=== PATIENT | female | born 1960 | race Caucasian/White ===

== ENCOUNTER → 2016-08-25 | Outpatient (CLI) | payer MEDICARE, MEDICAID ==
[2016-08-25 13:19] LABS: MEAN CORPUSCULAR HEMOGLOBIN 31.5 pg (27.0-33.4); MEAN CORPUSCULAR HGB CONC 34.9 g/dL (32.0-36.0); MEAN CORPUSCULAR VOLUME 90 fl (80-97); RED BLOOD COUNT 4.43 10^6/uL (3.72-5.28); RED CELL DISTRIBUTION WIDTH 12.8 % (11.5-14.0); WHITE BLOOD COUNT 4.4 10^3/uL (4.0-10.5)
[2016-08-25 13:26] LABS: PROTHROMBIN TIME 12.8 SEC (11.4-15.4)
[2016-08-25 13:51] LABS: ALANINE AMINOTRANSFERASE 166 U/L (9-52); ALBUMIN 3.9 g/dL (3.5-5.0); ALKALINE PHOSPHATASE 108 U/L (38-126); ANION GAP 14 (5-19); ASPARTATE AMINO TRANSFERASE 181 U/L (14-36); BILIRUBIN,TOTAL 0.6 mg/dL (0.2-1.3); BLOOD UREA NITROGEN 15 mg/dL (7-20); CALCIUM 9.8 mg/dL (8.4-10.2); CARBON DIOXIDE 27 mmol/L (22-30); CHLORIDE 95 mmol/L (98-107); CREATININE RESULT 0.86 mg/dL (0.52-1.25); GLUCOSE 94 mg/dL (75-110); POTASSIUM 3.8 mmol/L (3.6-5.0); SODIUM 135.7 mmol/L (137-145); TOTAL PROTEIN 7.6 g/dL (6.3-8.2)
[2016-08-27 08:41] LABS: HEPATITIS C QUANTITATION 3660000 IU/mL (.)
[2016-08-28 13:37] LABS: HCV ALPHA 2-MACROGLOBULINS QNT 277 mg/dL (110-276); HCV FIBROSIS SCORE 0.57 (0.00-0.21); HCV FIBROSURE ALT P5P 152 IU/L (0-40); HCV FIBROSURE GGT 117 IU/L (0-60); HCV FIBROSURE HAPTOGLOBIN 63 mg/dL (34-200); HCVFIB APOLIPOPROTEIN A-1 147 mg/dL (116-209); NECROINFLAM ACTIVITY GRADE A3-Severe activity (.)
== END ==
LOC: LAB 12:43
PROVIDERS: ATTEND Physician Assistant Surgical
DX: B18.2 Chronic viral hepatitis C (principal)
CPT/HCPCS: 36415; 80053; 82172; 82247; 82977; 83010; 83883; 84460; 85027; 85610; 87522

== ENCOUNTER → 2016-08-26 | Outpatient (CLI) | payer MEDICARE, MEDICAID | LOC: WI 09:41 | PROVIDERS: ATTEND Internal Medicine Gastroenterology | DX: B18.2 Chronic viral hepatitis C (principal) | CPT/HCPCS: 76705 ==

== ENCOUNTER 2016-12-06 08:34 | Emergency (ER) | payer MEDICARE, MEDICAID ==
[2016-12-06 08:42] VITALS: BP 146/97
--- NOTE | 2016-12-06 09:16 | ER Document Report ---
ED Fall - General Chief Complaint: Fall Injury Stated Complaint: FELL/FACE PAIN Time Seen by Provider: 12/06/16 09:04 Mode of Arrival: Ambulatory Information source: Patient Notes: 56-year-old female presents to ED for fall on Tuesday she states she tripped over a rug. The point of face pain right knee pain foot pain small across her nose and right knee. TRAVEL OUTSIDE OF THE [place] IN LAST 30 DAYS: No - HPI Occurred: Other Where: Indoors Context: Tripped Associated symptoms: None Location of injury/pain: Face, Knee, Neck Quality of pain: Achy Severity: Moderate Pain Level: 4 - Related data Allergies/Adverse Reactions: No Known Allergies Allergy (Verified 12/06/16 08:35) Past Medical History - General Information source: Patient - Social History Smoking Status: Current Every Day Smoker Cigarette use (# per day): Yes - Pack a day Chew tobacco use (# tins/day): No Smoking Education Provided: Yes - Treatment Frequency of alcohol use: Social Drug Abuse: None Lives with: Alone Family History: Arthritis, CAD, Hyperlipidemia, Hypertension, Malignancy, Thyroid Disfunction Patient has suicidal ideation: No Patient has homicidal ideation: No - Past Medical History Cardiac Medical History: Reports: Hx Hypertension - meds x 15 years Pulmonary Medical History: Reports: Hx COPD EENT Medical History: Reports: None Neurological Medical History: Reports: None Endocrine Medical History: Reports: Hx Diabetes Mellitus Type 2 Renal/ Medical History: Reports: Hx Ovarian Cysts - denies surgery Malignancy Medical History: Reports: None GI Medical History: Reports: Hx Gastroesophageal Reflux Disease - meds x 8 years , Hx Hepatitis - Hepatitis C, Hx Liver Failure - Hep C, Dx'ed 2010, Hx Ulcer - gastic Musculoskeltal Medical History: Reports Hx Arthritis, Reports Hx Fibromyalgia, Reports Hx Musculoskeletal Deformity, Reports Hx Musculoskeletal Trauma Skin Medical History: Reports Hx MRSA Psychiatric Medical History: Reports: Hx Anxiety, Hx Depression - meds x 8 years , Hx Post Traumatic Stress Disorder - refused to explain Hx, "too painful" Traumatic Medical History: Reports: Hx Fractures - RT foot, ORIF, 2013, [place] Infectious Medical History: Reports: Hx Hepatitis - Hepatitis C Past Surgical History: Reports: Hx Abdominal Surgery - Partial colectomy for bowel obstruction, Hx Bowel Surgery - exp lap, colon resection 2011, MRSA, Hx Herniorrhaphy - ? ventral, Hx Orthopedic Surgery - Left TKR, Hx Umbilical Hernia - Immunizations Immunizations up to date: No Hx Diphtheria, Pertussis, Tetanus Vaccination: Yes Review of Systems - Review of Systems Constitutional: No symptoms reported EENT: Other - Pain in nose and face Cardiovascular: No symptoms reported Respiratory: No symptoms reported Gastrointestinal: No symptoms reported Genitourinary: No symptoms reported Female Genitourinary: No symptoms reported Musculoskeletal: Neck pain, Other - Knee and foot Skin: No symptoms reported Hematologic/Lymphatic: No symptoms reported Neurological/Psychological: No symptoms reported -: Yes All other systems reviewed and negative Physical Exam - Vital signs Vitals: Temp Pulse Resp BP Pulse Ox 97.5 F 94 20 146/97 H 97 12/06/16 08:40 12/06/16 08:40 12/06/16 08:40 12/06/16 08:40 12/06/16 08:40 Interpretation: Normal - General General appearance: Appears well, Alert - HEENT Head: Abrasions, Ecchymosis, Tenderness Eyes: Normal Pupils: No: PERRL - Artificial eye to the left Ears: Normal External canal: Normal Tympanic membrane: Normal Sinus: Normal Nasal: Normal Mouth/Lips: Normal Mucous membranes: Normal Pharynx: Normal Neck: Normal - Respiratory Respiratory status: No respiratory distress Chest status: Nontender Breath sounds: Normal Chest palpation: Normal - Cardiovascular Rhythm: Regular Heart sounds: Normal auscultation Murmur: No - Abdominal Inspection: Normal Distension: No distension Bowel sounds: Normal Tenderness: Nontender Organomegaly: No organomegaly - Back Back: Normal, Nontender - Extremities General upper extremity: Normal inspection, Normal color, Normal ROM, Normal temperature General lower extremity: Normal ROM, Normal temperature, Normal weight bearing. No: Suzanne's sign Shoulder: Tender Knee: Tender, Ecchymosis, Pain with ROM Foot: Tender - Neurological Neuro grossly intact: Yes Cognition: Normal Orientation: AAOx4 [place] Coma Scale Eye Opening: Spontaneous Josh Coma Scale Verbal: Oriented Josh Coma Scale Motor: Obeys Commands Josh Coma Scale Total: 15 Speech: Normal Motor strength normal: LUE, RUE, LLE, RLE Sensory: Normal - Psychological Associated symptoms: Normal affect, Normal mood - Skin Skin Temperature: Warm Skin Moisture: Dry Skin Color: Normal Course - Re-evaluation Re-evalutation: 12/06/16 10:20 Discussed x-ray with patient report given to patient follow-up with primary doctor and orthopedic - Vital Signs Vital signs: Temp Pulse Resp BP Pulse Ox 97.5 F 94 20 146/97 H 97 12/06/16 08:40 12/06/16 08:40 12/06/16 08:40 12/06/16 08:40 12/06/16 08:40 - Diagnostic Test Radiology reviewed: Image reviewed, Reports reviewed Discharge - Discharge Clinical Impression: Right foot pain, Myalgia Facial contusion Qualifiers: Encounter type: initial encounter Qualified Code(s): S00.83XA - Contusion of other part of head, initial encounter Facial abrasion Qualifiers: Encounter type: initial encounter Qualified Code(s): S00.81XA - Abrasion of other part of head, initial encounter Contusion of right knee Qualifiers: Encounter type: initial encounter Qualified Code(s): S80.01XA - Contusion of right knee, initial encounter Abrasion, right knee, initial encounter Qualifiers: Encounter type: initial encounter Qualified Code(s): S80.211A - Abrasion, right knee, initial encounter Fall Qualifiers: Encounter type: initial encounter Qualified Code(s): W19.XXXA - Unspecified fall, initial encounter Condition: Stable Disposition: HOME, SELF-CARE Additional Instructions: MUSCLE STRAIN: You have strained a muscle -- torn the fibers within the muscle. This often occurs with strenuous exertion, or during an injury that suddenly stretches the muscle. The seriousness of a strain varies. Some strains heal within days, others cause problems for months. X-rays cannot show a muscle strain. X-rays are taken only if symptoms suggest that a fracture could be present. The usual treatment of a muscle strain is rest and ice packs. Sometimes, a sling, splint, or crutches may be necessary to rest the muscle. The muscle can be used again once pain subsides. Severe strains require a special exercise and stretching program to prevent permanent stiffness and disability. Your doctor will advise you if this will be necessary. Call the doctor immediately if pain or swelling becomes severe, or if numbness or discoloration develop. CONTUSION: Your injury has resulted in a contusion -- a crushing of the deep tissues. No injury to important structures was detected during the physician's exam. Contusions vary in the amount of pain they cause, and in the length of time required for healing. Typically, the area will become bruised, and will remain painful to touch for two or three weeks. However, most patients are back to working and playing within a few days. After the initial period of rest and cold-packs, your symptoms (together with the doctor's recommendations) will determine how rapidly you can get back to full activity. Usually this means "do what feels okay, but don't do things that hurt." If re-examination was recommended, it's important to follow up as instructed. Call the doctor or return any time if pain increases, if swelling becomes severe, if you develop numbness or weakness in an injured extremity, or if any other alarming symptoms occur. ABRASIONS: An abrasion is a scraping injury of the skin. Some scarring may result. The seriousness of an abrasion is not always obvious at first. Hidden tissue damage may be present and infection may occur despite proper care. Complete healing may take from ten days to as long as a month. The healing time depends on the depth of the abrasion, and on the amount of crushing of underlying tissues from the injury. Keep the wound and dressing clean. Do not shower or bathe the area until okayed by the doctor. If the dressing gets wet, remove it and blot the wound dry, then reapply a clean dressing. Dressings should be changed every day. Sunscreen should be used for six months after the skin is healed. If any signs of infection occur (swelling, redness, increasing tenderness, red streaks, profuse purulent drainage from the abrasion, tender lumps in the armpit or groin above the abrasion, or fever), see the doctor immediately. USE OF TYLENOL (ACETAMINOPHEN): Acetaminophen may be taken for pain relief or fever control. It's much safer than aspirin, offering a wider range of "safe" dosages. It is safe during . Some brand names are Tylenol, Panadol, Datril, Anacin 3, Tempra, and Liquiprin. Acetaminophen can be repeated every four hours. The following are maximum recommended dosages: WEIGHT Dose Drops Elixir Chewable( 80mg) (LBS.) drprs=droppers tsp=teaspoon 6 40 mg 0.4 ml (1/2) 6-11 80 mg 0.8 ml (full) tsp 1 tab 12-16 120 mg 1 1/2 drprs 3/4 tsp 1 1/2 tabs 17-23 160 mg 2 drprs 1 tsp 2 tabs 24-30 240 mg 3 drprs 1 1/2 tsp 3 tabs 30-35 320 mg 2 tsp 4 tabs 36-41 360 mg 2 1/4 tsp 4 1/2 tabs 42-47 400 mg 2 1/2 tsp 5 tabs 48-53 480 mg 3 tsp 6 tabs 54-59 520 mg 3 1/4 tsp 6 1/2 tabs 60-64 560 mg 3 1/2 tsp 7 tabs 65-70 600 mg 3 3/4 tsp 7 1/2 tabs 71-76 640 mg 4 tsp 8 tabs 77-82 720 mg 4 1/2 tsp 9 tabs 83-88 800 mg 5 tsp 10 tabs >89 pounds or adults 650 mg to 900 mg Acetaminophen can be repeated every four hours. Maximum dose not to exceed 4000 mg a day. These maximum recommended dosages are slightly higher than the dosages written on the product container, but these dosages are very safe and below the toxic dosage for acetaminophen. ICE PACKS: Apply ice packs frequently against the painful area. Many different schedules are recommended, such as "20 minutes on, 20 minutes off" or "one hour ice, two hours rest." If you need to work, you may need to go longer between ice treatments. You should plan to have the area ice packed AT LEAST one fourth of the time. The ice should be applied over the wrap, tape, or splint, or over a layer of cloth -- not directly against the skin. Some ice bags have a built-in cloth and can be put directly on the skin. WARM PACKS: After approximately two days, apply gentle heat (such as a heating pad or hot water bottle) for about 20 to 30 minutes about every two hours -- at least four times daily. Warmth and elevation will help you make a more rapid recovery , and will ease the pain considerably. Do not use HOT heat, and never apply heat for longer than 30 minutes. The continuous heat can invisibly damage skin and muscles -- even when no burn is seen on the surface. Damaged muscles can make you MORE sore. MUSCLE RELAXERS: Muscle relaxing medications are usually prescribed for acute muscle spasm or injury to the neck and back. They are often combined with antiinflammatory pain medication for increased relief. You may stop the muscle relaxer when the pain and stiffness have improved. Start the medication again if spasms recur. Muscle relaxers may cause drowsiness, especially with the first dose. Do not operate machinery or drive while under the effects of the medication. Most muscle relaxers last up to 24 hours. Do not combine the medication with alcohol. FOLLOW-UP CARE: If you have been referred to a physician for follow-up care, call the physician s office for an appointment as you were instructed or within the next two days. If you experience worsening or a significant change in your symptoms, notify the physician immediately or return to the Emergency Department at any time for re-evaluation. Prescriptions: Ibuprofen 600 mg PO Q6HP PRN #20 tablet PRN Reason: Forms: Elevated Blood Pressure, Smoking Cessation Education Referrals: AKIL MEEK MD [Primary Care Provider] - Follow up as needed
--- NOTE | 2016-12-06 09:45 | RADIOLOGY REPORT (SQ) ---
EXAM DESCRIPTION: FACIAL BONES COMPLETED DATE/TIME: 12/06/2016 9:36 am REASON FOR STUDY: fall injury pain COMPARISON: None. NUMBER OF VIEWS: Three view. TECHNIQUE: Images of the facial bones acquired. LIMITATIONS: None. FINDINGS: ORBITS: No fracture. No foreign body. SINUSES: No mucosal thickening. No air fluid levels. FACIAL BONES: No fracture. OTHER: No other significant finding. IMPRESSION: NO FOREIGN BODY OR FRACTURE OF THE FACIAL BONES. TECHNICAL DOCUMENTATION: JOB ID: [id number] [employer]- All Rights Reserved
--- NOTE | 2016-12-06 09:46 | RADIOLOGY REPORT (SQ) ---
EXAM DESCRIPTION: KNEE RIGHT 4 VIEWS COMPLETED DATE/TIME: 12/06/2016 9:36 am REASON FOR STUDY: fall injury pain COMPARISON: 06/16/2015. NUMBER OF VIEWS: Four views. TECHNIQUE: AP, lateral, and both oblique radiographic images acquired of the right knee. LIMITATIONS: None. FINDINGS: MINERALIZATION: Normal. BONES: Stable knee prosthesis. No acute fracture or dislocation. No worrisome bone lesions. JOINT: No effusion. SOFT TISSUES: No soft tissue swelling. No radio-opaque foreign body. OTHER: No other significant finding. IMPRESSION: STABLE KNEE PROSTHESIS. NO RADIOGRAPHIC EVIDENCE OF ACUTE INJURY. TECHNICAL DOCUMENTATION: JOB ID: [id number] [employer]- All Rights Reserved
== END 2016-12-06 10:14 | disposition home or self-care (01) ==
LOC: ER 08:34
DX: S00.83XA Contusion of other part of head, initial encounter (principal); S80.01XA Contusion of right knee, initial encounter; W01.0XXA Fall on same level from slipping, tripping and stumbling without subsequent striking against object, initial encounter; R51 Headache; M25.561 Pain in right knee; M79.1 Myalgia; M54.2 Cervicalgia; I10 Essential (primary) hypertension; J44.9 Chronic obstructive pulmonary disease, unspecified; E11.9 Type 2 diabetes mellitus without complications; F17.210 Nicotine dependence, cigarettes, uncomplicated; Z71.6 Tobacco abuse counseling
CPT/HCPCS: 70150; 99283

== ENCOUNTER → 2016-12-30 | Outpatient (CLI) | payer MEDICARE, MEDICAID ==
[2016-12-30 11:27] LABS: HEMATOCRIT 39.7 % (36.0-47.0); HEMOGLOBIN 13.4 g/dL (12.0-15.5); HGB HCT DIFFERENCE 0.5; MEAN CORPUSCULAR HEMOGLOBIN 31.8 pg (27.0-33.4); MEAN CORPUSCULAR HGB CONC 33.8 g/dL (32.0-36.0); MEAN CORPUSCULAR VOLUME 94 fl (80-97); RED BLOOD COUNT 4.23 10^6/uL (3.72-5.28); RED CELL DISTRIBUTION WIDTH 13.6 % (11.5-14.0); WHITE BLOOD COUNT 4.6 10^3/uL (4.0-10.5)
[2016-12-30 11:51] LABS: ALANINE AMINOTRANSFERASE 113 U/L (9-52); ALBUMIN 4.3 g/dL (3.5-5.0); ALKALINE PHOSPHATASE 92 U/L (38-126); ASPARTATE AMINO TRANSFERASE 90 U/L (14-36); BILIRUBIN,DIRECT 0.4 mg/dL (0.0-0.4); BILIRUBIN,TOTAL 0.5 mg/dL (0.2-1.3); TOTAL PROTEIN 7.8 g/dL (6.3-8.2)
[2016-12-30 12:30] LABS: ADD HIVPANEL? NO; HIV (1 AND 2) ANTIBODY NEGATIVE (NEGATIVE)
[2016-12-31 21:07] LABS: HEPATITIS C QUANTITATION 7550000 IU/mL (.)
[2017-01-01 07:42] LABS: HCV ALPHA 2-MACROGLOBULINS QNT 299 mg/dL (110-276); HCV FIBROSIS SCORE 0.37 (0.00-0.21); HCV FIBROSIS STAGE F1-F2 (.); HCV FIBROSURE ALT P5P 112 IU/L (0-40); HCV FIBROSURE GGT 158 IU/L (0-60); HCV FIBROSURE HAPTOGLOBIN 75 mg/dL (34-200); HCVFIB APOLIPOPROTEIN A-1 176 mg/dL (116-209); NECROINFLAM ACTIVITY GRADE A3-Severe activity (.); NECROINFLAMM ACTIVITY SCORE 0.64 (0.00-0.17)
== END ==
LOC: OD 10:12
PROVIDERS: ATTEND Internal Medicine Gastroenterology
DX: B18.2 Chronic viral hepatitis C (principal)
CPT/HCPCS: 36415; 80076; 82172; 82247; 82977; 83010; 83883; 84460; 85027; 86038; 86235; 86256; 86701; 87522

== ENCOUNTER → 2017-01-06 | Outpatient (CLI) | payer MEDICARE, MEDICAID ==
[2017-01-07 13:39] LABS: JO-1 ANTIBODY (ANACOMP) <0.2 AI (0.0-0.9)
== END ==
LOC: OD 12:35
PROVIDERS: ATTEND Internal Medicine Gastroenterology
DX: B18.2 Chronic viral hepatitis C (principal); R94.5 Abnormal results of liver function studies
CPT/HCPCS: 36415; 86225; 86235

== ENCOUNTER → 2017-04-19 | Outpatient (CLI) | payer MEDICARE, MEDICAID ==
[2017-04-19 13:58] LABS: HEMATOCRIT 38.7 % (36.0-47.0); HEMOGLOBIN 13.9 g/dL (12.0-15.5); MEAN CORPUSCULAR HEMOGLOBIN 31.9 pg (27.0-33.4); MEAN CORPUSCULAR HGB CONC 35.8 g/dL (32.0-36.0); MEAN CORPUSCULAR VOLUME 89 fl (80-97); RED BLOOD COUNT 4.35 10^6/uL (3.72-5.28); RED CELL DISTRIBUTION WIDTH 12.4 % (11.5-14.0); WHITE BLOOD COUNT 5.9 10^3/uL (4.0-10.5)
[2017-04-19 14:28] LABS: ALANINE AMINOTRANSFERASE 75 U/L (9-52); ALBUMIN 4.8 g/dL (3.5-5.0); ALKALINE PHOSPHATASE 74 U/L (38-126); ANION GAP 15 (5-19); ASPARTATE AMINO TRANSFERASE 59 U/L (14-36); BILIRUBIN,DIRECT 0.5 mg/dL (0.0-0.4); BILIRUBIN,TOTAL 0.6 mg/dL (0.2-1.3); BLOOD UREA NITROGEN 9 mg/dL (7-20); CALCIUM 10.9 mg/dL (8.4-10.2); CARBON DIOXIDE 26 mmol/L (22-30); CHLORIDE 99 mmol/L (98-107); CREATININE RESULT 0.85 mg/dL (0.52-1.25); GLUCOSE 96 mg/dL (75-110); POTASSIUM 3.9 mmol/L (3.6-5.0); SODIUM 140.2 mmol/L (137-145); TOTAL PROTEIN 8.2 g/dL (6.3-8.2)
[2017-04-19 14:53] LABS: THYROID STIMULATING HORMONE 3.47 uIU/mL (0.47-4.68)
[2017-04-20 14:40] LABS: HEPATITIS C QUANTITATION HCV Not Detected IU/mL (.)
== END ==
LOC: OD 13:07
PROVIDERS: ATTEND Physician Assistant Surgical
DX: B18.2 Chronic viral hepatitis C (principal); R53.83 Other fatigue; R94.5 Abnormal results of liver function studies
CPT/HCPCS: 36415; 80053; 82306; 82607; 84439; 84443; 85027; 87522

== ENCOUNTER → 2017-06-15 | Outpatient (CLI) | payer MEDICARE, MEDICAID ==
--- NOTE | 2017-06-15 11:22 | RADIOLOGY REPORT (SQ) ---
EXAM DESCRIPTION: CT LUNG CANCER SCREENING COMPLETED DATE/TIME: 06/15/2017 10:12 am REASON FOR STUDY: F17.211 NICOTINE DEPENDENCE, CIGARETTES, IN REMISSION N95.9 UNSPECIFIED MENOPAUSA L AND PERIMENOPAUSAL DISORDER F17.211 NICOTINE DEPENDENCE, CIGARETTES, IN REMISSION Has the patient had a Chest CT scan within the past year? No. Was the patient offered tobacco cessation counseling? Yes. Was the patient engaged in shared decision making for this test? Yes. Does the patient have signs or symptoms of Lung Cancer? No. Is the patient a smoker? Yes. How many packs per year? 365. How many years since quitting smoking? Current smoker. Patients age: 57. COMPARISON: None. TECHNIQUE: Low Dose CT scan performed of the chest without intravenous contrast for purposes of scre ening for lung cancer. Images reviewed with lung, soft tissue and bone windows. Reconstructed coron al and sagittal MPR images reviewed. All images stored on PACS. All CT scanners at this facility use dose modulation, iterative reconstruction, and/or weight based d osing when appropriate to reduce radiation dose to as low as reasonably achievable (ALARA). [facility]: Dose Right [facility]: CareDose [facility]: Dose Right [facility]: Teradose 4D [facility]: [employer] RADIATION DOSE: CT Rad equipment meets quality standard of care and radiation dose reduction techniq ues were employed. CTDIvol: 2.1 mGy. DLP: 69 mGy-cm. mGy. . LIMITATIONS: None FINDINGS: LUNGS AND PLEURA: No masses or nodules. No pleural effusions or calcifications. No pne umothorax. No scarring or interstitial changes. HILAR AND MEDIASTINAL STRUCTURES: No identified masses. No abnormal nodes. HEART AND VASCULAR STRUCTURES: No aortic aneurysm. No pericardial effusion. No cardiac devices. CORONARY ARTERY CALCIFICATIONS: Mild to moderate calcifications. UPPER ABDOMEN, THYROID, BONES, OTHER SOFT TISSUES: No significant findings. IMPRESSION: NO SIGNIFICANT FINDING IN THE LUNGS ON NON-CONTRASTED CHEST CT. NO OTHER CLINICALLY SIGNIFICANT/POTENTIALLY CLINICALLY SIGNIFICANT FINDINGS LUNGRADS: LUNGRADS: 1 NEGATIVE. NO NODULES, OR DEFINITELY BENIGN NODULES MODIFIER: NONE RECOMMENDATION: Continue annual screening with LDCT in 12 months. COMMENT: CRITERIA: No lung nodules. Nodules with specific calcifications: Complete, central, popcorn, concentric rings and fat containin g nodules. TECHNICAL DOCUMENTATION: JOB ID: [id number] Quality ID # [id number]: Final reports with documentation of one or more dose reduction techniques (e.g., Au tomated exposure control, adjustment of the mA and/or kV according to patient size, use of iterative reconstruction technique) 2010 [facility] emergency department Radiology
--- NOTE | 2017-06-15 11:25 | WOMENS IMAGING REPORT ---
EXAM DESCRIPTION: BONE DENSITY HIP/SPINE COMPLETED DATE/TIME: 06/15/2017 9:55 am REASON FOR STUDY: MENOPAUSAL SYNDROME; N95.9 N95.9 UNSPECIFIED MENOPAUSAL AND PERIMENOPAUSAL DISORD ER F17.211 NICOTINE DEPENDENCE, CIGARETTES, IN REMISSION COMPARISON: None. TECHNIQUE: Dual-Energy X-ray Absorptiometry (DEXA) of the AP Spine and Hip. LIMITATIONS: None. FINDINGS: LUMBAR SPINE: The bone mineral density (BMD) measured from L1-L4 in the AP projection correlates with a T-score of -0.7, which is normal as defined by the World Health Organization. HIP: The bone mineral density (BMD) measured in the left hip correlates with a T-score of -0.8, which is n ormal as defined by the World Health Organization. IMPRESSION: 1. LUMBAR SPINE: NORMAL. 2. HIP: NORMAL. COMMENT: The World Health Organization defines low BMD as follows: T-score: Normal: Greater than -1.0 Osteopenia: Between -1.0 and -2.5 Osteoporosis: Less than -2.5 without fractures Established osteoporosis: Less than -2.5 with fractures In general, you may wish to consider: Diagnosis Treatment Follow-up DEXA Normal BMD Prevention 2-3 years Osteopenia Prevention/Therapy 1-2 years Osteoporosis Therapy Yearly TECHNICAL DOCUMENTATION: JOB ID: [id number]- All Rights Reserved
== END ==
LOC: WI 10:21
PROVIDERS: ATTEND Family Medicine
DX: F17.211 Nicotine dependence, cigarettes, in remission (principal); N95.9 Unspecified menopausal and perimenopausal disorder
CPT/HCPCS: 77080; G0297

== ENCOUNTER 2017-08-17 10:59 | Observation (INO) | payer MEDICARE, MEDICAID ==
--- NOTE | 2017-08-17 11:24 | RADIOLOGY REPORT (SQ) ---
EXAM DESCRIPTION: CT HEAD WITHOUT COMPLETED DATE/TIME: 08/17/2017 11:06 am REASON FOR STUDY: bed 2 stroke alert COMPARISON: 2014. TECHNIQUE: Axial images acquired through the brain without intravenous contrast. Images reviewed wi th bone, brain and subdural windows. Images stored on PACS. All CT scanners at this facility use dose modulation, iterative reconstruction, and/or weight based d osing when appropriate to reduce radiation dose to as low as reasonably achievable (ALARA). [facility]: Dose Right [facility]: CareDose [facility]: Dose Right [facility]: Teradose 4D [facility]: [employer] RADIATION DOSE: CT Rad equipment meets quality standard of care and radiation dose reduction techniq ues were employed. CTDIvol: 64.6 mGy. DLP: 1163 mGy-cm. mGy. LIMITATIONS: None. FINDINGS: VENTRICLES: Age-appropriate. CEREBRUM: No masses. No hemorrhage. No midline shift. No evidence for acute infarction. Normal gra y/white matter differentiation. No areas of low density in the white matter. CEREBELLUM: No masses. No hemorrhage. No alteration of density. No evidence for acute infarction. EXTRAAXIAL SPACES: No fluid collections. No masses. ORBITS AND GLOBE: Chronic postoperative left orbit changes. CALVARIUM: No fracture. PARANASAL SINUSES: Fluid in the dependent left maxillary sinus may reflect active infection. SOFT TISSUES: No mass or hematoma. OTHER: No other significant finding. IMPRESSION: 1. No acute intracranial abnormality. 2. Findings which may reflect acute left maxilla ry sinusitis. EVIDENCE OF ACUTE STROKE: NO. Pertinent positive or negative findings of the imaging study reported as a CRITICAL EXAM to FRANKLIN BARONE at11:18 on 08/17/2017. Category of Critical Exam: Stroke alert COMMENT: Quality ID # [id number]: Final reports with documentation of one or more dose reduction techniques (e.g., Automated exposure control, adjustment of the mA and/or kV according to patient size, use of iterative reconstruction technique) TECHNICAL DOCUMENTATION: JOB ID: [id number] [email or web address]- All Rights Reserved
--- NOTE | 2017-08-17 11:25 | RADIOLOGY REPORT (SQ) ---
EXAM DESCRIPTION: CHEST SINGLE VIEW COMPLETED DATE/TIME: 08/17/2017 11:12 am REASON FOR STUDY: bed 2 stroke alert COMPARISON: 2015. NUMBER OF VIEWS: One view. TECHNIQUE: Single frontal radiographic view of the chest acquired. LIMITATIONS: None. FINDINGS: LUNGS AND PLEURA: LOW VOLUMES WITH ASSOCIATED VASCULAR CROWDING AND BASILAR AREAS OF SUBSE GMENTAL ATELECTASIS. ALLOWING FOR THIS, NO SUSPICIOUS OR ACUTE OPACITIES DETECTED. NO PNEUMOTHORAX. MEDIASTINUM AND HILAR STRUCTURES: ACCENTUATED CARDIOMEDIASTINAL STRUCTURE DUE TO LOW LUNG VOLUMES, GE NERALLY STABLE. HEART AND VASCULAR STRUCTURES: STABLE HEART SIZE. NO OVERT FAILURE. BONES: No acute findings. HARDWARE: None in the chest. OTHER: No other significant finding. IMPRESSION: LOW LUNG VOLUMES WITHOUT ACUTE CARDIOPULMONARY DISEASE OTHERWISE SUGGESTED. TECHNICAL DOCUMENTATION: JOB ID: [id number] [employer]- All Rights Reserved
[2017-08-17 11:31] LABS: ABSOLUTE BASOPHILS # (AUTO) 0.1 10^3/uL (0.0-0.2); ABSOLUTE LYMPHOCYTES (AUTO) 1.9 10^3/uL (0.5-4.7); ABSOLUTE MONOCYTES (AUTO) 0.4 10^3/uL (0.1-1.4); ABSOLUTE NEUT (AUTO) 3.4 10^3/uL (1.7-8.2); BASOPHILS % (AUTO) 1.1 % (0-2); EOSINOPHILS % (AUTO) 0.5 % (0-6); HEMOGLOBIN 15.3 g/dL (12.0-15.5); LYMPHOCYTES % (AUTO) 32.8 % (13-45); MEAN CORPUSCULAR HEMOGLOBIN 30.9 pg (27.0-33.4); MEAN CORPUSCULAR HGB CONC 34.8 g/dL (32.0-36.0); MEAN CORPUSCULAR VOLUME 89 fl (80-97); MONOCYTES % (AUTO) 7.3 % (3-13); PLATELET COUNT 216 10^3/uL (150-450); RED BLOOD COUNT 4.95 10^6/uL (3.72-5.28); RED CELL DISTRIBUTION WIDTH 13.5 % (11.5-14.0); SEGMENTED NEUTROPHILS % (AUTO) 58.3 % (42-78); TOTAL CELLS COUNTED % (AUTO) 100 %; WHITE BLOOD COUNT 5.8 10^3/uL (4.0-10.5)
[2017-08-17 11:38] LABS: INTERNATIONAL RATION (INR) 0.96; PARTIAL THROMBOPLASTIN TIME 27.3 SEC (23.5-35.8); PROTHROMBIN TIME 13.5 SEC (11.4-15.4)
[2017-08-17 11:49] LABS: ALANINE AMINOTRANSFERASE 25 U/L (9-52); ALBUMIN 5.5 g/dL (3.5-5.0); ALKALINE PHOSPHATASE 63 U/L (38-126); ANION GAP 14 (5-19); ASPARTATE AMINO TRANSFERASE 36 U/L (14-36); BILIRUBIN,DIRECT 0.5 mg/dL (0.0-0.4); BILIRUBIN,TOTAL 0.5 mg/dL (0.2-1.3); BLOOD UREA NITROGEN 11 mg/dL (7-20); CALCIUM 11.5 mg/dL (8.4-10.2); CARBON DIOXIDE 27 mmol/L (22-30); CHLORIDE 104 mmol/L (98-107); CREATINE KINASE 30 U/L (30-135); GLUCOSE 124 mg/dL (75-110); POTASSIUM 3.5 mmol/L (3.6-5.0); SODIUM 144.9 mmol/L (137-145); TOTAL PROTEIN 9.7 g/dL (6.3-8.2)
[2017-08-17 12:00] LABS: CREATINE KINASE MB 0.22 ng/mL (<4.55); TROPONIN I < 0.012 ng/mL
--- NOTE | 2017-08-17 13:23 | EKG REPORT ---
SEVERITY:- ABNORMAL ECG - SINUS RHYTHM LEFT ATRIAL ABNORMALITY : Confirmed by: Ryan Balderas MD 17-Aug-2017 13:22:41
[2017-08-17] MEDS ORDERED: ASPIRIN 81 MG TABLET, CHEWABLE PO ONE (13:50)
--- NOTE | 2017-08-17 13:57 | ER Document Report ---
ED Neuro Symptoms/Deficit - General Chief Complaint: S/S of Possible Stroke Stated Complaint: POSSIBLE STROKE Time Seen by Provider: 08/17/17 11:24 Notes: Patient says that she was at [facility] this morning, about an hour ago , getting preop is done for anticipated surgery on her right foot in a couple of weeks. While there, she suddenly developed slurring of her speech and dizziness and a right-sided headache. She gets occasional headaches, but not like the current one. She did not lose consciousness or fall to the floor. She was able to continue to bear weight on both extremities. Think she may have had some weakness in her right arm. She has a history of high blood pressure and did not take her blood pressure medicines before leaving her house this morning to go to get these tests done. She says at this time, her symptoms have almost resolved with exception of her feeling as if she still slurring her speech. Says she has not eaten or been drinking very well for the past couple of days. Denies any chest pains or shortness of breath or difficulty breathing. Does have a history of COPD and does smoke cigarettes. TRAVEL OUTSIDE OF THE [place] IN LAST 30 DAYS: No - Related Data Allergies/Adverse Reactions: No Known Allergies Allergy (Verified 12/06/16 08:35) Past Medical History - Social History Smoking Status: Current Every Day Smoker Frequency of alcohol use: None Drug Abuse: None Family History: Reviewed & Not Pertinent, Arthritis, CAD, Hyperlipidemia, Hypertension, Malignancy, Thyroid Disfunction Patient has suicidal ideation: No Patient has homicidal ideation: No - Past Medical History Cardiac Medical History: Reports: Hx Hypercholesterolemia, Hx Hypertension - meds x 15 years Pulmonary Medical History: Reports: Hx COPD Neurological Medical History: Denies: Hx Cerebrovascular Accident Endocrine Medical History: Reports: Hx Diabetes Mellitus Type 2 Renal/ Medical History: Reports: Hx Ovarian Cysts - denies surgery GI Medical History: Reports: Hx Gastroesophageal Reflux Disease - meds x 8 years , Hx Hepatitis - Hepatitis C, Hx Liver Failure - Hep C, Dx'ed 2010, Hx Ulcer - gastic Musculoskeltal Medical History: Reports Hx Arthritis, Reports Hx Fibromyalgia, Reports Hx Musculoskeletal Deformity, Reports Hx Musculoskeletal Trauma Skin Medical History: Reports Hx MRSA Psychiatric Medical History: Reports: Hx Anxiety, Hx Depression - meds x 8 years , Hx Post Traumatic Stress Disorder - refused to explain Hx, "too painful" Traumatic Medical History: Reports: Hx Fractures - RT foot, ORIF, 2014, [facility] Infectious Medical History: Reports: Hx Hepatitis - Hepatitis C Past Surgical History: Reports: Hx Abdominal Surgery - Partial colectomy for bowel obstruction, Hx Bowel Surgery - exp lap, colon resection 2011, MRSA, Hx Herniorrhaphy - ? ventral, Hx Orthopedic Surgery - Left TKR, Hx Umbilical Hernia - Immunizations Immunizations up to date: No Hx Diphtheria, Pertussis, Tetanus Vaccination: Yes Review of Systems - Review of Systems Notes: REVIEW OF SYSTEMS: CONSTITUTIONAL : Denies fever. EENT: Denies ear, nose or mouth or throat pain or other symptoms. 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 Has glaucoma CARDIOVASCULAR: Denies chest pain. RESPIRATORY: Denies cough, chest congestion, or shortness of breath. GASTROINTESTINAL: Denies abdominal pain or nausea, vomiting, or diarrhea. GENITOURINARY: Denies difficulty or painful urinating, urinary frequency, blood in urine. MUSCULOSKELETAL: Denies back or neck pain. Denies joint pain or swelling. SKIN: Denies rash or skin lesions. NEUROLOGICAL: Denies LOC or altered mental status. See HPI. Denies sensory loss or motor deficits. ALL OTHER SYSTEMS REVIEWED AND NEGATIVE. Physical Exam - Vital signs Vitals: Temp Resp BP Pulse Ox 98.9 F 14 156/116 H 96 08/17/17 11:14 08/17/17 11:14 08/17/17 11:14 08/17/17 11:14 Interpretation: Hypertensive - Notes Notes: PHYSICAL EXAMINATION: GENERAL: Well-appearing, in no acute distress. Blood pressure up modestly. HEAD: Atraumatic, normocephalic. Dizziness is improved. EYES: Right eye pupil reacts to light and the right eye moves appropriately. Prosthetic left eye. As is her speech seems slurred to her, but says it is improving. NECK: Normal range of motion, supple. No bruits heard. LUNGS: Breath sounds clear and equal bilaterally. Occasional scattered wheeze heard. HEART: Regular rate and rhythm without murmurs. ABDOMEN: Soft, nontender. No guarding or rebound. No masses. BACK: No tenderness throughout entire back. EXTREMITIES: Normal range of motion without pain. NEUROLOGICAL: Patient says her speech is slurred, although it does not sound very slurred to me at this time, normal gait. Normal sensory, motor, and reflex exams. Awake, alert, and oriented x3. Cranial nerves normal. PSYCH: Normal mood, normal affect. SKIN: Warm, dry, no rashes. Course - Re-evaluation Re-evalutation: 08/17/17 19:10 Before she was taken upstairs, patient was found in the bathroom smoking a cigarette. - Vital Signs Vital signs: Temp Pulse Resp BP Pulse Ox 98.9 F 92 19 160/101 H 93 08/17/17 11:14 08/17/17 11:15 08/17/17 13:01 08/17/17 13:01 08/17/17 13:01 - Laboratory Result Diagrams: 08/17/17 11:20 08/17/17 11:20 Laboratory results interpreted by me: 08/17/17 11:20 Potassium 3.5 L Glucose 124 H Calcium 11.5 H Direct Bilirubin 0.5 H Total Protein 9.7 H Albumin 5.5 H - Diagnostic Test Radiology reviewed: Image reviewed, Reports reviewed - CT scan does not show any evidence of stroke. Radiology results interpreted by me: Chest x-ray shows poor inspiration, but no acute abnormality. - EKG Interpretation by Me EKG shows normal: Sinus rhythm Rate: Normal Rhythm: NSR Critical Care Note - Critical Care Note Total time excluding time spent on procedures (mins): 40 Discharge - Discharge Clinical Impression: TIA (transient ischemic attack) Qualifiers: Transient cerebral ischemia type: unspecified Qualified Code(s): G45.9 - Transient cerebral ischemic attack, unspecified Hypertension Qualifiers: Hypertension type: essential hypertension Qualified Code(s): I10 - Essential ( primary) hypertension Condition: Stable Disposition: ADMITTED OBSERVATION Admitting Provider: Hospitalist Unit Admitted: Telemetry
[2017-08-17] MEDS ORDERED: ASPIRIN 300 MG SUPP, RECTAL PR ONE (14:42)
[2017-08-17] MEDS ORDERED: GLUCAGON,HUMAN RECOMB 1 MG INJ SUBCUT PRN (16:19)
[2017-08-17] MEDS ORDERED: DEXTROSE 50%-WATER 25 GM/50 ML DISP.SYRIN IV PRN ×2 (16:19)
[2017-08-17] MEDS ORDERED: 1/2 NORMAL SALINE 1,000 ML IV PRN (16:19)
[2017-08-17] MEDS ORDERED: DEXTROSE 40% GEL 15 GM TUBE PO PRN ×2 (16:19)
--- NOTE | 2017-08-17 17:29 | PDOC H&P ---
History of Present Illness Admission Date/PCP: 08/17/17 14:39 Patient complains of: Slurred speech History of Present Illness: VENECIA GARNICA is a 57 year old female who presents to the emergency room with complaints of slurred speech as well as headache while she was at the outpatient center for some laboratory studies for a pending outpatient procedure. She was brought to the emergency room where she was found to be hypertensive with a systolic blood pressure of about 170/110. It appears that patient's symptoms waxed and waned and in fact the ER doctor said when he saw her discussed speech was basically gone. On my exam of the patient she initially had some slurred speech but when I went back in a few minutes later everything seemed to be pretty clear. There is no weakness and essentially no other focal or lateralizing symptoms although does she did complain of headaches. There is no fever nausea vomiting chest pain dizziness or any other pertinent symptoms It is noted that patient is on a bunch of antipsychotics. She apparently also has some difficulty swallowing although this also seem to be intermittent. She gives prior history of a mini stroke but because of speech she is unable to expand further Past Medical History Cardiac Medical History: Reports: Hyperlipidema, Hypertension - meds x 15 years Pulmonary Medical History: Reports: Chronic Obstructive Pulmonary Disease (COPD) Endocrine Medical History: Reports: Diabetes Mellitus Type 2 GI Medical History: Reports: Gastroesophageal Reflux Disease - meds x 8 years, Hepatitis - Hepatitis C Musculoskeltal Medical History: Reports: Arthritis, Fibromyalgia Psychiatric Medical History: Reports: Depression - meds x 8 years, Post Traumatic Stress Disorder - refused to explain Hx, "too painful" Hematology: Reports: Anemia - with pregnancies only Denies: Hemophilia, Sickle Cell Disease Past Surgical History Past Surgical History: Reports: Herniorrhaphy - ? ventral, Orthopedic Surgery - Left TKR Denies: Amputation Social History Smoking Status: Current Every Day Smoker Frequency of Alcohol Use: Occasional Hx Recreational Drug Use: No Hx Prescription Drug Abuse: No Family History Family History: Reviewed & Not Pertinent, Arthritis, CAD, Hyperlipidemia, Hypertension, Malignancy, Thyroid Disfunction Parental Family History Reviewed: Yes - Denies Children Family History Reviewed: Yes Sibling(s) Family History Reviewed.: Yes Medication/Allergy Home Medications: Albuterol Sulfate [Proair HFA Inhalation Aerosol 8.5 gm MDI] 2 puff IH Q4 Alprazolam [Xanax] 1 mg PO Q12HP PRN 08/17/17 Aripiprazole [Abilify 10 mg Tablet] 10 mg PO DAILY 08/17/17 Buspirone HCl [Buspar 15 mg Tablet] 7.5 mg PO BID 08/17/17 Citalopram Hydrobromide [Celexa 20 mg Tablet] 30 mg PO DAILY 08/17/17 Dextroamphetamine/Amphetamine [Dextroamp-Amphetamin 10 mg Tab] 10 mg PO BID Ergocalciferol (Vitamin D2) [Drisdol 50,000 unit (1.25MG) Capsule] 50,000 unit PO MO@1000 08/17/17 Gabapentin [Neurontin 300 mg Capsule] 300 mg PO Q8 08/17/17 Lisinopril [Prinivil 10 mg Tablet] 10 mg PO DAILY 08/17/17 Metformin HCl [Glucophage] 1,000 mg PO BID 08/17/17 Omeprazole 20 mg PO BID 08/17/17 Quetiapine Fumarate [Seroquel] 100 mg PO DAILY 08/17/17 Umeclidinium Brm/Vilanterol Tr [Anoro Ellipta 62.5-25 Mcg INH] 1 puff IH DAILY 08/17/17 Allergies/Adverse Reactions: No Known Allergies Allergy (Verified 12/06/16 08:35) Physical Exam Vital Signs: Temp Pulse Resp BP Pulse Ox 98.4 F 79 21 H 184/106 H 93 08/17/17 16:56 08/17/17 16:56 08/17/17 16:56 08/17/17 16:56 08/17/17 16:56 Intake & Output 08/16/17 08/17/17 08/18/17 06:59 06:59 06:59 Weight 71.6 kg General appearance: PRESENT: no acute distress, well-developed, well-nourished Head exam: PRESENT: atraumatic, normocephalic Eye exam: PRESENT: conjunctiva pink, EOMI, PERRLA. ABSENT: nystagmus, scleral icterus Ear exam: PRESENT: normal external ear exam Mouth exam: PRESENT: moist, tongue midline Neck exam: ABSENT: carotid bruit, JVD, lymphadenopathy, thyromegaly Respiratory exam: PRESENT: clear to auscultation abiola. ABSENT: rales, rhonchi, wheezes Cardiovascular exam: PRESENT: RRR. ABSENT: diastolic murmur, rubs, systolic murmur Pulses: PRESENT: normal dorsalis pedis pul Vascular exam: PRESENT: normal capillary refill GI/Abdominal exam: PRESENT: normal bowel sounds, soft. ABSENT: distended, guarding, mass, organolmegaly, rebound, tenderness Rectal exam: PRESENT: deferred Extremities exam: PRESENT: full ROM. ABSENT: calf tenderness, clubbing, pedal edema Neurological exam: PRESENT: alert, awake, oriented to person, oriented to place , oriented to time, oriented to situation, CN II-XII grossly intact - Slurred speech tongue is midline, strength appears to be equal in both extremities.. ABSENT: reflexes normal, abnormal gait, motor sensory deficit Psychiatric exam: PRESENT: appropriate affect, normal mood. ABSENT: homicidal ideation, suicidal ideation Skin exam: PRESENT: dry, intact, warm. ABSENT: cyanosis, rash Results Impressions: Chest X-Ray 08/17/17 11:00 IMPRESSION: LOW LUNG VOLUMES WITHOUT ACUTE CARDIOPULMONARY DISEASE OTHERWISE SUGGESTED. Head CT 08/17/17 11:00 IMPRESSION: 1. No acute intracranial abnormality. 2. Findings which may reflect acute left maxillary sinusitis. EVIDENCE OF ACUTE STROKE: NO. Pertinent positive or negative findings of the imaging study reported as a CRITICAL EXAM to ER PROVIDER KARLEY at11:18 on 08/17/2017. Category of Critical Exam: Stroke alert Assessment & Plan - Diagnosis (1) TIA (transient ischemic attack) Qualifiers: Transient cerebral ischemia type: unspecified Qualified Code(s): G45.9 - Transient cerebral ischemic attack, unspecified Is this a current diagnosis for this admission?: Yes Plan: Will monitor in ICU, obtain MRI as well as echo and carotid Doppler studies. She has been treated with aspirin in the ED and also continue with this. There appears to be an element of psychological or psychiatric component to this patient's symptoms however I think it is reasonable to monitor her and ensure that no specific pathology is present (2) HTN (hypertension) Qualifiers: Hypertension type: essential hypertension Qualified Code(s): I10 - Essential (primary) hypertension Is this a current diagnosis for this admission?: Yes Plan: Patient has hypertensive urgency possibly malignant if she truly has a cerebrovascular accident. She did not use her lisinopril this morning however that would not account for her poorly controlled blood pressure. She will be placed on as needed parenteral antihypertensive and I will continue her home lisinopril. (3) Hypercalcemia Is this a current diagnosis for this admission?: Yes Plan: Unclear if this is just secondary to dehydration but I will hydrate and recheck BMP in a.m. (4) Tobacco abuse disorder Is this a current diagnosis for this admission?: Yes Plan: Smoking cessation encouraged - Time Time Spent: 30 to 50 Minutes Smoking Cessation Education: 3 to 10 minutes Medications reviewed and adjusted accordingly: Yes Anticipated discharge: Home Within: within 24 hours - Inpatient Certification Medical Necessity: Need Close Monitoring Due to Risk of Patient Decompensation - She needs further imaging studies as well as monitoring to rule out progression of stroke
[2017-08-17] MEDS ORDERED: HYDRALAZINE HCL INJ/PF 20 MG/1 ML SDV IV PRN (17:31)
[2017-08-17] MEDS ORDERED: (PENDING PHARMACY ID) (Buspirone Hcl [Buspar 15 Mg Tablet] 7.5 MG) PO SCH (18:00)
[2017-08-17] MEDS ORDERED: LISINOPRIL 10 MG TABLET PO ONE (19:55)
[2017-08-17] MEDS ORDERED: ENOXAPARIN SODIUM INJ 40 MG/0.4 ML DISP.SYRIN SUBCUT ONE (21:00)
[2017-08-17] MEDS: GABAPENTIN 300 MG CAPSULE PO SCH (21:23)
[2017-08-17] MEDS: KETOROLAC TROMETHAMINE INJ/PF 30 MG/1 ML SDV IV PRN (21:24)
[2017-08-17] MEDS: FAMOTIDINE INJ/PF 20 MG/2 ML SDV IV SCH (21:24)
[2017-08-17] MEDS: BUSPIRONE HCL 10 MG TABLET PO SCH (21:25)
[2017-08-17] MEDS: ALBUTEROL SULFATE HFA (90 MCG/PUFF) 200 PUFF/8.5 GM MDI IH SCH ×2 (21:25→21:36)
[2017-08-17] MEDS ORDERED: ATORVASTATIN CALCIUM 20 MG TABLET PO SCH (22:00)
[2017-08-17] MEDS ORDERED: QUETIAPINE FUMARATE 100 MG TABLET PO ONE (22:00)
[2017-08-18] MEDS: ALBUTEROL SULFATE HFA (90 MCG/PUFF) 200 PUFF/8.5 GM MDI IH SCH ×5 (02:31→17:21)
[2017-08-18 04:21] LABS: ANION GAP 10 (5-19); BLOOD UREA NITROGEN 16 mg/dL (7-20); CALCIUM 11.2 mg/dL (8.4-10.2); CARBON DIOXIDE 25 mmol/L (22-30); CHLORIDE 109 mmol/L (98-107); GLUCOSE 90 mg/dL (75-110); POTASSIUM 3.3 mmol/L (3.6-5.0); SODIUM 144.2 mmol/L (137-145)
[2017-08-18] MEDS: GABAPENTIN 300 MG CAPSULE PO SCH ×2 (05:47→12:58)
[2017-08-18] MEDS: BUSPIRONE HCL 10 MG TABLET PO SCH ×2 (05:49→12:58)
[2017-08-18] MEDS: KETOROLAC TROMETHAMINE INJ/PF 30 MG/1 ML SDV IV PRN ×3 (05:49→18:33)
--- NOTE | 2017-08-18 07:28 | RADIOLOGY REPORT (SQ) ---
EXAM DESCRIPTION: MRI HEAD WITHOUT COMPLETED DATE/TIME: 08/17/2017 8:09 pm REASON FOR STUDY: CVA S42.222K 2-PART DISP FX OF SURG NK OF VERONIQUE LOMBARDO FOR FX W COMPARISON: CT brain 08/17/2017 TECHNIQUE: Multiplanar imaging includes non-contrasted T1, T2, FLAIR, and diffusion with ADC map seq uences. Images stored on PACS. LIMITATIONS: None. FINDINGS: ANATOMY: No anomalies. Normal vascular flow voids. Pituitary fossa normal. CSF SPACES: Normal in size and contour. No hemorrhage. CEREBRUM: Sulci and gyri normal in size and contour. Normal white matter signal on FLAIR imaging. No evidence of hemorrhage, mass, or extraaxial fluid collection. POSTERIOR FOSSA: No signal alteration. No hemorrhage. No edema, masses or mass effect. Internal dragan tory canals, cerebello-pontine angles, mastoids normal. DIFFUSION IMAGING: Negative for acute or sub-acute infarction. 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 IMPRESSION: No acute findings EVIDENCE OF ACUTE STROKE: NO. TECHNICAL DOCUMENTATION: JOB ID: [id number] [employer]- All Rights Reserved
[2017-08-18] MEDS: FAMOTIDINE INJ/PF 20 MG/2 ML SDV IV SCH (08:53)
[2017-08-18] MEDS ORDERED: AMLODIPINE BESYLATE 5 MG TABLET PO SCH (10:00)
[2017-08-18] MEDS ORDERED: CITALOPRAM HYDROBROMIDE 20 MG TABLET PO SCH (10:00)
[2017-08-18] MEDS ORDERED: ASPIRIN 325 MG TABLET PO SCH (10:00)
[2017-08-18] MEDS ORDERED: LISINOPRIL 10 MG TABLET PO SCH (10:00)
[2017-08-18] MEDS ORDERED: ARIPIPRAZOLE 5 MG TABLET PO SCH (10:00)
[2017-08-18] MEDS ORDERED: (PENDING PHARMACY ID) (Aripiprazole [Abilify 10 Mg Tablet] 10 MG) PO SCH (10:00)
[2017-08-18] MEDS ORDERED: ENOXAPARIN SODIUM INJ 40 MG/0.4 ML DISP.SYRIN SUBCUT SCH (10:00)
[2017-08-18] MEDS ORDERED: QUETIAPINE FUMARATE 100 MG TABLET PO SCH ×2 (10:00→22:00)
[2017-08-18] MEDS ORDERED: ASPIRIN 300 MG SUPP, RECTAL PR SCH (10:00)
--- NOTE | 2017-08-18 11:50 | RADIOLOGY REPORT (SQ) ---
EXAM DESCRIPTION: CAROTID DOPPLER COMPLETED DATE/TIME: 08/18/2017 10:34 am REASON FOR STUDY: CVA S42.222K 2-PART DISP FX OF SURG NK OF VERONIQUE LOMBARDO FOR FX W COMPARISON: CT brain 08/17/2017 MRI brain 08/17/2017 TECHNIQUE: Grayscale ultrasound, Doppler velocity and spectra, and color Doppler images acquired of the extra-cranial carotid and vertebral arteries. Images stored on PACS. LIMITATIONS: None. FINDINGS: RIGHT CAROTID CCA Velocities: Within normal limits. ICA Velocities Peak systolic 0.38 m/s. End diastolic 0.12 m/s. Proximal ICA/CCA peak systolic ratio 0.8. Spectra normal. No significant plaque. LEFT CAROTID CCA Velocities: Within normal limits. ICA Velocities Peak systolic 0.36 m/s. End diastolic 0.13 m/s. Proximal ICA/CCA peak systolic ratio 0.7. Spectra normal. No significant plaque. VERTEBRAL ARTERIES: Antegrade flow. Normal waveforms. SUBCLAVIAN ARTERIES: Not evaluated OTHER: No other significant finding. IMPRESSION: NO HEMODYNAMICALLY SIGNIFICANT STENOSIS. COMMENT: Quality ID #[id number]: Velocity criteria are extrapolated from the diameter data as defined by t he Society of Radiologists in Ultrasound Consensus Conference. Radiology 2003: 229; 340-346. TECHNICAL DOCUMENTATION: JOB ID: [id number] [employer]- All Rights Reserved
[2017-08-18] MEDS ORDERED: POTASSIUM CHLORIDE 10 MEQ TABLET.SA PO ONE (20:00)
[2017-08-18 20:04] VITALS: BP 148/89
--- NOTE | 2017-08-19 18:44 | PDOC DISCHARGE SUMMARY ---
General - Admit/Disc Date/PCP Admission Date/Primary Care Provider: 08/17/17 14:39 Discharge Date: 08/18/17 - Discharge Diagnosis (1) HTN (hypertension) Is this a current diagnosis for this admission?: Yes (2) Hypercalcemia Is this a current diagnosis for this admission?: Yes Summary: Follow up with PCP for further evaluation (3) Tobacco abuse disorder Is this a current diagnosis for this admission?: Yes (5) Hypopotassemia Is this a current diagnosis for this admission?: Yes - Additional Information Discharge Diet: Cardiac, Diabetic Discharge Activity: Activity As Tolerated Home Medications: Albuterol Sulfate [Proair HFA Inhalation Aerosol 8.5 gm MDI] 2 puff IH Q4 Alprazolam [Xanax] 1 mg PO Q12HP PRN 08/17/17 Aripiprazole [Abilify 10 mg Tablet] 10 mg PO DAILY 08/17/17 Buspirone HCl [Buspar 15 mg Tablet] 7.5 mg PO BID 08/17/17 Citalopram Hydrobromide [Celexa 20 mg Tablet] 30 mg PO DAILY 08/17/17 Dextroamphetamine/Amphetamine [Dextroamp-Amphetamin 10 mg Tab] 10 mg PO BID Ergocalciferol (Vitamin D2) [Drisdol 50,000 unit (1.25MG) Capsule] 50,000 unit PO MO@1000 08/17/17 Gabapentin [Neurontin 300 mg Capsule] 300 mg PO Q8 08/17/17 Lisinopril [Prinivil 10 mg Tablet] 10 mg PO DAILY 08/17/17 Metformin HCl [Glucophage] 1,000 mg PO BID 08/17/17 Omeprazole 20 mg PO BID 08/17/17 Quetiapine Fumarate [Seroquel] 100 mg PO DAILY 08/17/17 Umeclidinium Brm/Vilanterol Tr [Anoro Ellipta 62.5-25 Mcg INH] 1 puff IH DAILY 08/17/17 Amlodipine Besylate [Norvasc 5 mg Tablet] 5 mg PO DAILY tablet 08/18/17 Aripiprazole [Abilify 5 mg Tablet] 10 mg PO DAILY tablet 08/18/17 History of Present Illness History of Present Illness: VENECIA GARNICA is a 57 year old female who presents to the emergency room with complaints of slurred speech as well as headache while she was at the outpatient center for some laboratory studies for a pending outpatient procedure. She was brought to the emergency room where she was found to be hypertensive with a systolic blood pressure of about 170/110. It appears that patient's symptoms waxed and waned and in fact the ER doctor said when he saw her discussed speech was basically gone. On my exam of the patient she initially had some slurred speech but when I went back in a few minutes later everything seemed to be pretty clear. There is no weakness and essentially no other focal or lateralizing symptoms although does she did complain of headaches. There is no fever nausea vomiting chest pain dizziness or any other pertinent symptoms It is noted that patient is on a bunch of antipsychotics. She apparently also has some difficulty swallowing although this also seem to be intermittent.r Hospital Course Hospital Course: Patient was admitted with questionable symptoms of TIA versus a stroke. She presented with a slurred speech as well as difficulty swallowing however the symptoms were intermittent and there are no consistent. It appears the symptoms could have been due to patient's underlying psychiatric history. They had disappeared by the time of discharge. She was monitored in the intensive care unit with no evidence of any evolving or progressive stroke. Her blood pressure was elevated though on admission and this was controlled with adjustment in her medications. She had 2-dimensional echocardiogram as well as carotid Doppler and MRI done which revealed no significant findings. As she has been hemodynamically stable and no further intervention is been planned at this time she has been discharged home for outpatient follow-up. Cerebrovascular accident or TIA has been ruled out Physical Exam Vital Signs: Temp Pulse Resp BP Pulse Ox 98.1 F 72 18 151/86 H 95 08/18/17 18:00 08/18/17 18:00 08/18/17 18:04 08/18/17 18:00 08/18/17 18:04 Intake & Output 08/17/17 08/18/17 08/19/17 06:59 06:59 06:59 Intake Total 1200 Balance 1200 Weight 68.4 kg General appearance: PRESENT: no acute distress, well-developed, well-nourished Head exam: PRESENT: atraumatic, normocephalic Eye exam: PRESENT: conjunctiva pink, EOMI, PERRLA. ABSENT: scleral icterus Ear exam: PRESENT: normal external ear exam Mouth exam: PRESENT: moist, tongue midline Neck exam: ABSENT: carotid bruit, JVD, lymphadenopathy, thyromegaly Respiratory exam: PRESENT: clear to auscultation abiola. ABSENT: rales, rhonchi, wheezes Cardiovascular exam: PRESENT: RRR. ABSENT: diastolic murmur, rubs, systolic murmur Pulses: PRESENT: normal dorsalis pedis pul Vascular exam: PRESENT: normal capillary refill GI/Abdominal exam: PRESENT: normal bowel sounds, soft. ABSENT: distended, guarding, mass, organolmegaly, rebound, tenderness Rectal exam: PRESENT: deferred Extremities exam: PRESENT: full ROM. ABSENT: calf tenderness, clubbing, pedal edema Neurological exam: PRESENT: alert, awake, oriented to person, oriented to place , oriented to time, oriented to situation, CN II-XII grossly intact. ABSENT: motor sensory deficit Psychiatric exam: PRESENT: appropriate affect, normal mood. ABSENT: homicidal ideation, suicidal ideation Skin exam: PRESENT: dry, intact, warm. ABSENT: cyanosis, rash Results Laboratory Results: 08/18/17 03:52 08/18/17 03:52 Sodium 144.2 Potassium 3.3 L Chloride 109 H Carbon Dioxide 25 Anion Gap 10 BUN 16 Creatinine 0.81 Est GFR ( Amer) > 60 Est GFR (Non-Af Amer) > 60 Glucose 90 Calcium 11.2 H 08/18/17 00:12 Troponin I < 0.012 Impressions: Head MRI 08/17/17 00:00 IMPRESSION: No acute findings EVIDENCE OF ACUTE STROKE: NO. Chest X-Ray 08/17/17 11:00 IMPRESSION: LOW LUNG VOLUMES WITHOUT ACUTE CARDIOPULMONARY DISEASE OTHERWISE SUGGESTED. Head CT 08/17/17 11:00 IMPRESSION: 1. No acute intracranial abnormality. 2. Findings which may reflect acute left maxillary sinusitis. EVIDENCE OF ACUTE STROKE: NO. Pertinent positive or negative findings of the imaging study reported as a CRITICAL EXAM to ER PROVIDER KARLEY at11:18 on 08/17/2017. Category of Critical Exam: Stroke alert Carotid Doppler Study 08/18/17 00:00 IMPRESSION: NO HEMODYNAMICALLY SIGNIFICANT STENOSIS. Plan Discharge Plan: CVA/TIA ruled out Time Spent: Less than 30 Minutes
[2017-08-22] MEDS ORDERED: ERGOCALCIFEROL (VITAMIN D2) 50000 UNIT (1.25 MG) CAPSULE PO SCH (10:00)
--- NOTE | 2017-08-23 09:08 | XCELERA REPORT ---
[address] [address] Transthoracic Echocardiogram Report Name: VENECIA GARNICA Age: 57 yrs Gender: Female : 1960 Patient Status: Inpatient Patient Location: ICU^611^A Study Date: 08/18/2017 09:32 AM Height: 64 in Weight: 158 lb BSA: 1.8 m2 Procedure: A complete two-dimensional transthoracic echocardiogram was performed (2D, M-mode, spectral and color flow Doppler). The study was technically difficult with many images being suboptimal in quality. Reason For Study: CVA Ordering Physician: CHRISSY COLON Performed By: Andreia Cid Interpretation Summary The study was technically difficult with many images being suboptimal in quality. The left ventricular ejection fraction is normal. There is normal left ventricular wall thickness. The left ventricle is grossly normal size. Doppler measurements suggest pseudonormalized left ventricular relaxation, which is associated with grade II/IV or mild to moderate diastolic dysfunction Regional wall motion abnormalities cannot be excluded due to limited visualization. The right ventricular systolic function is normal. The right atrium is normal in size The left atrial size is normal. There is no mitral valve stenosis. There is a trace to mild amount of mitral regurgitation There is no aortic valve stenosis No aortic regurgitation is present. There is a trace or physiologic amount of tricuspid regurgitation Tricuspid regurgitation jet envelope not well defined to measure RV systolic pressure accurately. The aortic root is not well visualized. The inferior vena cava appeared normal and decreased > 50% with respiration (RAP 5-10 mmHg) There is no pericardial effusion. No definite cardiac source of CVA/TIA noted on this particular trans- thoracic study. Consider DEBI if clinically indicated. May consider mobile cardiac telemetry monitoring (MCT) for ruling out transient AFIB. MMode/2D Measurements & Calculations RVDd: 1.5 cm LVIDd: 4.2 cm FS: 42.0 % Ao root diam: 3.2 cm IVSd: 0.82 cm LVIDs: 2.4 cm EDV(Teich): 77.2 ml LVPWd: 0.87 cm ESV(Teich): 20.6 ml Ao root area: 8.0 cm2 EF(Teich): 73.4 % Doppler Measurements & Calculations MV E max sloan: MV dec slope: Ao V2 max: LV V1 max P.6 cm/sec 164.9 cm/sec 3.5 mmHg MV A max sloan: 170.0 cm/sec2 Ao max PG: LV V1 max: 107.2 cm/sec MV dec time: 10.9 mmHg 94.0 cm/sec MV E/A: 0.61 0.39 sec PA V2 max: TR max sloan: 93.6 cm/sec 192.1 cm/sec PA max P.5 mmHg TR max P.8 mmHg Left Ventricle The left ventricle is grossly normal size. There is normal left ventricular wall thickness. The left ventricular ejection fraction is normal. Doppler measurements suggest pseudonormalized left ventricular relaxation, which is associated with grade II/IV or mild to moderate diastolic dysfunction. Regional wall motion abnormalities cannot be excluded due to limited visualization. Right Ventricle The right ventricle is grossly normal size. There is normal right ventricular wall thickness. The right ventricular systolic function is normal. Atria The right atrium is normal in size. The left atrial size is normal. Interarterial septum not well visualized and not well dopplered. Cannot comment on ASD/PFO presence. Mitral Valve The mitral valve is grossly normal. There is no mitral valve stenosis. There is a trace to mild amount of mitral regurgitation. Aortic Valve The aortic valve is not well visualized secondary to technical limitations. There is no aortic valve stenosis. No aortic regurgitation is present. Tricuspid Valve The tricuspid valve is not well visualized secondary to technical limitations. There is no tricuspid stenosis. There is a trace or physiologic amount of tricuspid regurgitation. Tricuspid regurgitation jet envelope not well defined to measure RV systolic pressure accurately. Pulmonic Valve The pulmonic valve is not well visualized. Great Vessels The aortic root is not well visualized. The inferior vena cava appeared normal and decreased > 50% with respiration (RAP 5-10 mmHg). Effusions There is no pericardial effusion. Incidental Findings No definite cardiac source of CVA/TIA noted on this particular trans- thoracic study. Consider DEBI if clinically indicated. May consider mobile cardiac telemetry monitoring (MCT) for ruling out transient AFIB. : CHRISSY COLON > Mita Washington
== END 2017-08-18 20:32 | disposition home or self-care (01) ==
LOC: ER 10:59 → EH 14:39 → UNDOADMOB 14:39 → ICU 16:55 → EH 16:55
PROVIDERS: ADMIT Internal Medicine Pulmonary Disease; ATTEND Internal Medicine Pulmonary Disease
PROC: HZ31ZZZ Individual Counseling for Substance Abuse Treatment, Behavioral (ICD-10-PCS; principal; 2017-08-17)
DX: I16.0 Hypertensive urgency (principal); E83.52 Hypercalcemia; E87.6 Hypokalemia; F17.210 Nicotine dependence, cigarettes, uncomplicated; H40.9 Unspecified glaucoma; R47.81 Slurred speech; R51 Headache; R13.10 Dysphagia, unspecified; F32.9 Major depressive disorder, single episode, unspecified; K21.9 Gastro-esophageal reflux disease without esophagitis; F43.10 Post-traumatic stress disorder, unspecified; Z82.49 Family history of ischemic heart disease and other diseases of the circulatory system; Z96.652 Presence of left artificial knee joint; Z90.49 Acquired absence of other specified parts of digestive tract; Z86.14 Personal history of Methicillin resistant Staphylococcus aureus infection; Z79.899 Other long term (current) drug therapy; Z87.828 Personal history of other (healed) physical injury and trauma; Z97.0 Presence of artificial eye; Z86.19 Personal history of other infectious and parasitic diseases
CPT/HCPCS: 93005; 99291; 36415 ×2; 82553; 82550; 85025; 85610; 85730; 80048; 80053; 84484 ×2; 93306; 93880; 70551; 71045; 70450; 93010; 97110; 97163; 97167; 99406; G0378 ×2; A9270 ×10; J1885 ×2; J1650; J3490 ×3; S0028 ×2; G8978; G8979; G8987; G8988; G8989; 70553

== ENCOUNTER → 2017-11-24 | Outpatient (CLI) | payer MEDICARE, MEDICAID ==
[2017-11-24 13:19] LABS: ALANINE AMINOTRANSFERASE 22 U/L (9-52); ALBUMIN 3.8 g/dL (3.5-5.0); ALKALINE PHOSPHATASE 55 U/L (38-126); ASPARTATE AMINO TRANSFERASE 17 U/L (14-36); BILIRUBIN,DIRECT 0.2 mg/dL (0.0-0.4); BILIRUBIN,TOTAL 0.2 mg/dL (0.2-1.3); LIPASE 45.5 U/L (23-300); TOTAL PROTEIN 6.6 g/dL (6.3-8.2)
== END ==
LOC: LAB 12:00
PROVIDERS: ATTEND Internal Medicine Gastroenterology
DX: B18.2 Chronic viral hepatitis C (principal); R10.13 Epigastric pain
CPT/HCPCS: 36415; 80076; 83690

== ENCOUNTER → 2017-11-25 | Outpatient (CLI) | payer MEDICARE, MEDICAID ==
--- NOTE | 2017-11-25 15:41 | RADIOLOGY REPORT (SQ) ---
EXAM DESCRIPTION: CT ABD/PELVIS WITH IV ORAL COMPLETED DATE/TIME: 11/25/2017 3:25 pm REASON FOR STUDY: ABN LFT (R94.5), EPIGASTRIC PAIN (R10.13) R94.5 ABNORMAL RESULTS OF LIVER FUNCTIO N STUDIES R10.13 EPIGASTRIC PAIN COMPARISON: None. TECHNIQUE: CT scan of the abdomen and pelvis performed with intravenous and oral contrast using mee macie scanning technique with dynamic intravenous contrast injection. Images reviewed with lung, soft t issue, and bone windows. Reconstructed coronal and sagittal MPR images reviewed. Delayed images for e valuation of the urinary system also acquired. All images stored on PACS. All CT scanners at this facility use dose modulation, iterative reconstruction, and/or weight based d osing when appropriate to reduce radiation dose to as low as reasonably achievable (ALARA). [facility]: Dose Right [facility]: CareDose [facility]: Dose Right [facility]: Teradose 4D [facility]: Snagsta CONTRAST TYPE AND DOSE: 100 cc Isovue 370- low osmolar. RENAL FUNCTION: GFR > 60. RADIATION DOSE: . LIMITATIONS: None. FINDINGS: LOWER CHEST: Cardiomegaly. LIVER: Normal size. No masses. No dilated ducts. SPLEEN: Normal size. No focal lesions. PANCREAS: No masses. No significant calcifications. No adjacent inflammation or peripancreatic fluid collections. Pancreatic duct not dilated. GALLBLADDER: No identified stones by CT criteria. No inflammatory changes to suggest cholecystitis. ADRENAL GLANDS: No significant masses or asymmetry. RIGHT KIDNEY AND URETER: No solid masses. No significant calcifications. No hydronephrosis or hyd roureter. LEFT KIDNEY AND URETER: No solid masses. No significant calcifications. No hydronephrosis or hydr oureter. AORTA AND VESSELS: No aneurysm. RETROPERITONEUM: No retroperitoneal adenopathy, hemorrhage or masses. BOWEL AND PERITONEAL CAVITY: Diverticulosis descending colon. No obstruction. No visualized masses. No free fluid. No inflammatory changes or thickening of bowel wall. APPENDIX: Normal. PELVIS: No significant masses. Normal bladder. No free fluid. ABDOMINAL WALL: Prior anterior abdominal wall hernia repair. BONES: No acute findings. OTHER: No other significant finding. IMPRESSION: Diverticulosis. No acute findings. TECHNICAL DOCUMENTATION: JOB ID: [id number] Quality ID # [id number]: Final reports with documentation of one or more dose reduction techniques (e.g., Au tomated exposure control, adjustment of the mA and/or kV according to patient size, use of iterative reconstruction technique) 2010 [employer]- All Rights Reserved Reading location - IP/workstation name: Unknown
== END ==
LOC: RAD 13:51
PROVIDERS: ATTEND Internal Medicine Gastroenterology
DX: K57.90 Diverticulosis of intestine, part unspecified, without perforation or abscess without bleeding (principal); R94.5 Abnormal results of liver function studies; R10.13 Epigastric pain
CPT/HCPCS: 74177; 82565

== ENCOUNTER 2017-12-23 10:28 | Inpatient (IN) | payer MEDICARE, MEDICAID ==
[2017-12-23] MEDS ORDERED: NORMAL SALINE 1000 ML 1,000 ML IV ONE ×2 (10:43→12:45)
--- NOTE | 2017-12-23 11:12 | ER Document Report ---
ED General - General Chief Complaint: General Weakness Stated Complaint: POSSIBLE OVERDOSE Time Seen by Provider: 12/23/17 10:42 Mode of Arrival: Medic Information source: Patient, Relative Notes: Patient is a 57-year-old female with past medical history as recorded who presents by EMS secondary to a neighbor noticing that the patient "was not acting right". There was a report by EMS that there was possibly some blue pills by the bed. Patient supposedly has a history of a stroke/TIA around 2 months ago. Patient also has a history of an overdose with depression and anxiety. There was a report initially that the patient has some baseline slurred speech from a stroke that was 2 weeks ago? She was supposedly here at this hospital. I have reviewed the hospital records and see no such admission and discharge. The only admission and discharge I see was for hypertensive emergency with a TIA on August 18, 2017. I was able to call the patient's sister, at [phone]. She states that she talk to the neighbor and also thought that there was possibly some blue pills. She states that the patient does not have any slurred speech, weakness or numbness from any previous stroke. She does not remember the patient being admitted any time in the last month. She states that the patient does have a history of depression with an overdose in the past. Patient denies any pain. She does follow commands and questions. Her speech is very slurred. Patient states she "maybe" took too many pills. She is unable to tell me which pill she may have taken. TRAVEL OUTSIDE OF THE [place] IN LAST 30 DAYS: No - HPI Onset: Other - Unknown Onset/Duration: Constant Quality of pain: Other - See above Severity: Moderate Pain Level: Denies Associated symptoms: Other - See above Exacerbated by: Denies Relieved by: Denies Similar symptoms previously: No Recently seen / treated by doctor: No - Related Data Allergies/Adverse Reactions: No Known Allergies Allergy (Verified 12/23/17 10:38) Past Medical History - General Information source: Patient - Social History Smoking Status: Unknown if Ever Smoked Cigarette use (# per day): No Chew tobacco use (# tins/day): No Smoking Education Provided: No Frequency of alcohol use: None Drug Abuse: None Family History: Reviewed & Not Pertinent, Arthritis, CAD, Hyperlipidemia, Hypertension, Malignancy, Thyroid Disfunction Patient has suicidal ideation: No Patient has homicidal ideation: No - Past Medical History Cardiac Medical History: Reports: Hx Hypercholesterolemia, Hx Hypertension - meds x 15 years Pulmonary Medical History: Reports: Hx COPD Neurological Medical History: Denies: Hx Cerebrovascular Accident Endocrine Medical History: Reports: Hx Diabetes Mellitus Type 2 Renal/ Medical History: Reports: Hx Ovarian Cysts - denies surgery. Denies: Hx Peritoneal Dialysis GI Medical History: Reports: Hx Gastroesophageal Reflux Disease - meds x 8 years , Hx Hepatitis - Hepatitis C, Hx Liver Failure - Hep C, Dx'ed 2010, Hx Ulcer - gastic Musculoskeltal Medical History: Reports Hx Arthritis, Reports Hx Fibromyalgia, Reports Hx Musculoskeletal Deformity, Reports Hx Musculoskeletal Trauma Skin Medical History: Reports Hx MRSA Psychiatric Medical History: Reports: Hx Anxiety, Hx Depression - meds x 8 years , Hx Post Traumatic Stress Disorder - refused to explain Hx, "too painful" Traumatic Medical History: Reports: Hx Fractures - RT foot, ORIF, 2013, [place] Infectious Medical History: Reports: Hx Hepatitis - Hepatitis C Past Surgical History: Reports: Hx Abdominal Surgery - Partial colectomy for bowel obstruction, Hx Bowel Surgery - exp lap, colon resection 2011, MRSA, Hx Herniorrhaphy - ? ventral, Hx Orthopedic Surgery - Left TKR, Hx Umbilical Hernia - Immunizations Immunizations up to date: No Hx Diphtheria, Pertussis, Tetanus Vaccination: Yes Review of Systems - Review of Systems -: Yes ROS unobtainable due to patient's medical condition Physical Exam - Vital signs Vitals: Resp Pulse Ox 20 87 L 12/23/17 10:33 12/23/17 10:33 Notes: Reviewed vital signs and nursing note as charted by RN. CONSTITUTIONAL: Alert and slightly lethargic with slurred speech HEAD: Normocephalic; atraumatic EYES: Right eye has some ptosis with PERRL; Left eye is unreactive and dialated ENT: Normal nose; no rhinorrhea; moist mucous membranes; pharynx without lesions noted NECK: Supple without meningismus; non-tender; no carotid bruit; no cervical lymphadenopathy, no masses CARD: Regular rate and rhythm; no murmurs, no clicks, no rubs, no gallops; symmetric distal pulses RESP: Normal chest excursion without splinting or tachypnea; breath sounds clear and equal bilaterally; no wheezes, no rhonchi, no rales ABD/GI: Normal bowel sounds; non-distended; soft, non-tender, old midline abdominal scar, no rebound, no guarding; no palpable organomegaly or masses BACK: The back appears normal and is non-tender to palpation EXT: Normal ROM in all joints; non-tender to palpation; no edema SKIN: Normal color for age and race; warm; no acute lesions noted NEURO: Moves all extremities including bilateral arms and legs with no obvious focal weakness appreciated Course - Re-evaluation Re-evalutation: 12/23/17 11:11 After talking with the patient, the family, with the examination as recorded, I have ordered a stat CT scan of the head. I concerned given the unreactive left pupil. I was able to talk to the patient's sister and she states that the patient has a left prosthetic eye. She states that the patient normally has no slurred speech at baseline and does not indicate or remember any recent stroke over the last 2 weeks. Patient has a history of depression with overdose in the past. No blue pills were taken by EMS here to this facility. We will obtain basic labs, provide fluids, obtain an acetaminophen, aspirin, blood alcohol level, urine tox screen. Lactic acid has been sent. EKG and blood work is pending. 12/23/17 11:13 Patient has an elevated INR. I do not see Coumadin as 1 of the patient's medications. I do see documentation of the patient having a history of hepatitis C with an elevated liver panel. Patient had a recent CT scan on November 25 showing only diverticulosis. Patient has been followed by the certified medication aide. 12/23/17 11:15 On August 17 the patient had an INR that was normal. 12/23/17 11:18 Repeat blood pressure is 98/56. Heart rate is 92. EKG shows heart of 93, normal sinus rhythm, normal axis, no obvious ST elevation or depression. 12/23/17 11:26 Lab call me back and has a preliminary hemoglobin of 3 with a platelet level in the 50s. We will perform a redraw on the blood and I have ordered a type and screen as well as blood for transfusion. 12/23/17 11:42 Rectal temperature is 99.3. Lab is concerned about a possible contaminant. I have ordered packed red blood cells and labs currently redrawing another set of laboratory values. Blood pressure is improved. Heart rate is stable. No change in mental status. CT scan of the head shows no obvious acute abnormalities. 12/23/17 12:35 I have called her sister once again and she has read me out the patient's medication list which appears to be what I have here in our system. It appears that the patient sees Drs Reuben, Nadya, Dexter and Vijay. 12/23/17 12:36 Repeat laboratory profile as recorded with a CBC showing a hemoglobin and platelet level as recorded. I have called blood bank to help cancel the blood order. On repeat examination the patient does have some wheezing. Satting around 90% on 2 L. I have ordered an ABG and have provided duo nebulizers. Patient has a history of COPD. 12/23/17 12:44 The sister has called me once again and added 2 more medications. It appears the patient takes Vicodin as well as glycopyrrolate. Patient does not have dry red skin. Patient is not tachycardic. I do not believe an anticholinergic overdose is likely. I will provide a dose of Narcan at this time. 12/23/17 12:46 Patient's chemistry has returned showing acute renal failure compared to the previous creatinine in August. I have added another liter of fluid. I have asked the lab to redraw the PT/INR given that the previous draw from which that was resulted appeared tainted. 12/23/17 12:49 After the Narcan the patient is immediately awake and alert. Patient states that she took 4 Vicodin. She states that she was upset. She denies drinking any alcohol or taking more than 4 Vicodin. - Vital Signs Vital signs: Temp Pulse Resp BP Pulse Ox 99.1 F 93 10 L 92/64 L 93 12/23/17 11:30 12/23/17 11:30 12/23/17 12:31 12/23/17 12:31 12/23/17 11:31 - Laboratory Result Diagrams: 12/23/17 11:59 12/23/17 11:59 Laboratory results interpreted by me: 12/23/17 12/23/17 12/23/17 10:55 11:59 11:59 WBC RBC Hgb Hct RDW Plt Count Seg Neutrophils % Lymphocytes % Absolute Neutrophils PT 34.7 H Carbonic Acid ABG pH ABG pCO2 ABG pO2 ABG HCO3 ABG O2 Saturation Sodium Potassium BUN Creatinine Est GFR ( Amer) Est GFR (Non-Af Amer) Glucose Direct Bilirubin Ammonia < 8.7 L Albumin Salicylates Acetaminophen Crossmatch See Detail 12/23/17 12/23/17 12/23/17 11:59 11:59 12:30 WBC 10.7 H RBC 3.14 L Hgb 9.5 L Hct 28.3 L RDW 14.2 H Plt Count 140 L Seg Neutrophils % 84.3 H Lymphocytes % 6.9 L Absolute Neutrophils 9.0 H PT Carbonic Acid 1.53 H ABG pH 7.20 L* ABG pCO2 50.7 H ABG pO2 48.0 L ABG HCO3 19.4 L ABG O2 Saturation 74.4 L Sodium 131.6 L Potassium 5.2 H BUN 34 H Creatinine 2.16 H Est GFR ( Amer) 28 L Est GFR (Non-Af Amer) 23 L Glucose 138 H Direct Bilirubin 0.8 H Ammonia Albumin 3.3 L Salicylates < 1.0 L Acetaminophen < 10 L Crossmatch Critical Care Note - Critical Care Note Total time excluding time spent on procedures (mins): 45 Discharge - Discharge Clinical Impression: Altered mental status Qualifiers: Altered mental status type: unspecified Qualified Code(s): R41.82 - Altered mental status, unspecified Overdose Qualifiers: Encounter type: initial encounter Injury intent: intentional self-harm Qualified Code(s): T50.902A - Poisoning by unspecified drugs, medicaments and biological substances, intentional self-harm, initial encounter Depression Qualifiers: Depression Type: major depressive disorder Major depression recurrence: single episode Active/Remission status: currently active Major depression episode severity: severe Psychotic features: without psychotic features Qualified Code(s ): F32.2 - Major depressive disorder, single episode, severe without psychotic features Acute renal failure Qualifiers: Acute renal failure type: unspecified Qualified Code(s): N17.9 - Acute kidney failure, unspecified Condition: Fair Disposition: ADMITTED INPATIENT Unit Admitted: Telemetry Referrals: DARREN MORFIN MD [Primary Care Provider] - Follow up as needed
--- NOTE | 2017-12-23 11:23 | RADIOLOGY REPORT (SQ) ---
EXAM DESCRIPTION: CT HEAD WITHOUT COMPLETED DATE/TIME: 12/23/2017 11:09 am REASON FOR STUDY: alt mental status COMPARISON: 08/17/2017 TECHNIQUE: Axial images acquired through the brain without intravenous contrast. Images reviewed wi th bone, brain and subdural windows. Additional sagittal and coronal reconstructions were generated. Images stored on PACS. All CT scanners at this facility use dose modulation, iterative reconstruction, and/or weight based d osing when appropriate to reduce radiation dose to as low as reasonably achievable (ALARA). [facility]: Dose Right [facility]: CareDose [facility]: Dose Right [facility]: Teradose 4D [facility]: [employer] RADIATION DOSE: CT Rad equipment meets quality standard of care and radiation dose reduction techniq ues were employed. CTDIvol: 53.2 mGy. DLP: 2088 mGy-cm. mGy. LIMITATIONS: None. FINDINGS: VENTRICLES: There is some prominence of the lateral ventricles unchanged from the previous study. CEREBRUM: No masses. No hemorrhage. No midline shift. No evidence for acute infarction. Normal gra y/white matter differentiation. No areas of low density in the white matter. CEREBELLUM: No masses. No hemorrhage. No alteration of density. No evidence for acute infarction. EXTRAAXIAL SPACES: No fluid collections. No masses. ORBITS AND GLOBE: The previously described postoperative the left orbit changes are stable. CALVARIUM: No fracture. PARANASAL SINUSES: Again there is fluid within the left maxillary antra. SOFT TISSUES: No mass or hematoma. OTHER: No other significant finding. IMPRESSION: No significant interval change from the previous study. No acute intracranial abnormali ties. Other findings as noted above. EVIDENCE OF ACUTE STROKE: NO. COMMENT: Quality ID # 436: Final reports with documentation of one or more dose reduction techniques (e.g., Automated exposure control, adjustment of the mA and/or kV according to patient size, use of iterative reconstruction technique) TECHNICAL DOCUMENTATION: JOB ID: [id number] [employer]- All Rights Reserved Reading location - IP/workstation name: [facility]-[email or web address]
[2017-12-23] MEDS ORDERED: NORMAL SALINE 250 ML IV PRN ×2 (11:29→14:29)
[2017-12-23 12:24] LABS: ABSOLUTE BASOPHILS # (AUTO) 0.1 10^3/uL (0.0-0.2); ABSOLUTE EOSINOPHILS # (AUTO) 0.1 10^3/uL (0.0-0.6); ABSOLUTE LYMPHOCYTES (AUTO) 0.7 10^3/uL (0.5-4.7); ABSOLUTE MONOCYTES (AUTO) 0.8 10^3/uL (0.1-1.4); BASOPHILS % (AUTO) 0.5 % (0-2); EOSINOPHILS % (AUTO) 0.7 % (0-6); HEMATOCRIT 28.3 % (36.0-47.0); HEMOGLOBIN 9.5 g/dL (12.0-15.5); LYMPHOCYTES % (AUTO) 6.9 % (13-45); MEAN CORPUSCULAR HEMOGLOBIN 30.3 pg (27.0-33.4); MEAN CORPUSCULAR HGB CONC 33.6 g/dL (32.0-36.0); MEAN CORPUSCULAR VOLUME 90 fl (80-97); MONOCYTES % (AUTO) 7.6 % (3-13); PLATELET COUNT 140 10^3/uL (150-450); RED BLOOD COUNT 3.14 10^6/uL (3.72-5.28); RED CELL DISTRIBUTION WIDTH 14.2 % (11.5-14.0); SEGMENTED NEUTROPHILS % (AUTO) 84.3 % (42-78); TOTAL CELLS COUNTED % (AUTO) 100 %; WHITE BLOOD COUNT 10.7 10^3/uL (4.0-10.5)
[2017-12-23] MEDS ORDERED: NALOXONE HCL INJ/PF 0.4 MG/1 ML SDV IV ONE (12:36)
[2017-12-23 12:42] LABS: ALANINE AMINOTRANSFERASE 21 U/L (9-52); ALBUMIN 3.3 g/dL (3.5-5.0); ALKALINE PHOSPHATASE 59 U/L (38-126); ANION GAP 10 (5-19); ASPARTATE AMINO TRANSFERASE 24 U/L (14-36); BILIRUBIN,DIRECT 0.8 mg/dL (0.0-0.4); BILIRUBIN,TOTAL 0.8 mg/dL (0.2-1.3); BLOOD UREA NITROGEN 34 mg/dL (7-20); CALCIUM 8.4 mg/dL (8.4-10.2); CARBON DIOXIDE 23 mmol/L (22-30); CHLORIDE 99 mmol/L (98-107); GLUCOSE 138 mg/dL (75-110); POTASSIUM 5.2 mmol/L (3.6-5.0); SODIUM 131.6 mmol/L (137-145); TOTAL PROTEIN 6.3 g/dL (6.3-8.2)
[2017-12-23 12:43] LABS: ACETAMINOPHEN < 10 ug/mL (10-30); ALCOHOL < 10 mg/dL (NONE DETECTED); SALICYLATE < 1.0 mg/dL (2.0-20.0)
[2017-12-23 12:54] LABS: ARTERIAL BLOOD BASE EXCESS -8.4 mmol/L; ARTERIAL BLOOD FIO2 3L; ARTERIAL BLOOD H2CO3 1.53 mmol/L (1.05-1.35); ARTERIAL BLOOD HCO3 19.4 mmol/L (20-26); ARTERIAL BLOOD O2 SATURATION 74.4 % (94-98); ARTERIAL BLOOD PCO2 50.7 mmHg (35-45)
[2017-12-23] MEDS ORDERED: IPRATROPIUM/ALBUTEROL 0.5-2.5 MG/3 ML AMPUL NEB ONE (13:02)
[2017-12-23 13:15] LABS: INTERNATIONAL RATION (INR) 1.13
[2017-12-23 13:22] LABS: PROTHROMBIN TIME 15.1 SEC (11.4-15.4)
[2017-12-23] MEDS ORDERED: DEXTROSE 50%-WATER 25 GM/50 ML DISP.SYRIN IV PRN ×2 (14:00)
[2017-12-23] MEDS ORDERED: GLUCAGON,HUMAN RECOMB 1 MG INJ IM PRN (14:00)
[2017-12-23] MEDS ORDERED: DEXTROSE 40% GEL 15 GM TUBE PO PRN ×2 (14:00)
[2017-12-23] MEDS ORDERED: ONDANSETRON HCL INJ/PF 4 MG/2 ML SDV IV PRN (14:01)
--- NOTE | 2017-12-23 14:15 | RADIOLOGY REPORT (SQ) ---
EXAM DESCRIPTION: CHEST SINGLE VIEW COMPLETED DATE/TIME: 12/23/2017 2:02 pm REASON FOR STUDY: 2, sob; ams COMPARISON: 08/17/2017 EXAM PARAMETERS: NUMBER OF VIEWS: One view. TECHNIQUE: Single frontal radiographic view of the chest acquired. RADIATION DOSE: NA LIMITATIONS: None. FINDINGS: LUNGS AND PLEURA: Patchy opacification in the right lung base. MEDIASTINUM AND HILAR STRUCTURES: No masses. Contour normal. HEART AND VASCULAR STRUCTURES: Heart size within normal limits. There is ectasia of the ascending ao rta. BONES: No acute findings. HARDWARE: None in the chest. OTHER: No other significant finding. IMPRESSION: 1. Right lower lobe pneumonia. 2. Ectasia of the ascending aorta. TECHNICAL DOCUMENTATION: JOB ID: [id number] [facility]- All Rights Reserved Reading location - IP/workstation name: [email or web address]
--- NOTE | 2017-12-23 14:34 | PDOC H&P ---
History of Present Illness Admission Date/PCP: Dr Dexter ALEXIS MD History of Present Illness: VENECIA GARNICA is a 57 year old female who was brought to the hospital with altered mental status. Her past medical history is significant for alcohol abuse and hepatitis C for which she reportedly is received treatment. She also has a history of depression with a drug overdose in the past. In addition she has COPD and hyperlipidemia. In the emergency room she was found to be quite altered. Initial labs revealed a creatinine up to. Her baseline is below 1. Family reports that they found blue pills in the bed with the patient. She was given a dose of Narcan and woke up. She states that she drank 3-4 beers and took 4 Vicodin. Family members also found an empty bottle of Adderall by the bedside but she denies this. The patient is still quite altered. She contradicts herself and it is difficult to get a good review of systems. Also the patient had acute respiratory failure at the time of admission. She was placed on oxygen. Initial blood gas revealed a pH of 7.2, PCO2 of 50.7, PO2 of 48 and bicarbonate of 19.4. The patient's hands are quite cold but at the time of my visit her oxygen saturations are ranging anywhere from the low 70s to upper 80s. 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 Endocrine Medical History: Reports: Diabetes Mellitus Type 2 Renal/ Medical History: Denies: Chronic Kidney Disease, End Stage Renal Disease Malignancy Medical History: Reports: None GI Medical History: Reports: Diverticulitis - Status post partial colectomy with reversal of colostomy, Gastroesophageal Reflux Disease - meds x 8 years, Hepatitis - Hepatitis C which she states has been totally treated and she does not have Musculoskeltal Medical History: Reports: Arthritis, Fibromyalgia Skin Medical History: Reports: None Psychiatric Medical History: Reports: Alcohol Dependency, Depression - meds x 8 years, Post Traumatic Stress Disorder - refused to explain Hx, "too painful", Tobacco Dependency Hematology: Reports: Anemia - with pregnancies only Denies: Hemophilia, Sickle Cell Disease Infectious Medical History: Reports: Hepatitis C Past Surgical History Past Surgical History: Reports: Colostomy - Which is since been reversed, Herniorrhaphy - ? ventral, Orthopedic Surgery - Left TKR Denies: Amputation Social History Information Source: Patient Lives with: Alone Smoking Status: Unknown if Ever Smoked Frequency of Alcohol Use: Occasional Last Alcohol Use: 12/23/17 Hx Recreational Drug Use: No Drugs: None Hx Prescription Drug Abuse: No - Advance Directive Resuscitation Status: Full Code Family History Family History: Reviewed & Not Pertinent, Arthritis, CAD, Hyperlipidemia, Hypertension, Malignancy, Thyroid Disfunction Parental Family History Reviewed: Yes Children Family History Reviewed: Yes Sibling(s) Family History Reviewed.: Yes Medication/Allergy Allergies/Adverse Reactions: No Known Allergies Allergy (Verified 12/23/17 10:38) Physical Exam Vital Signs: Temp Pulse Resp BP Pulse Ox 99.1 F 93 10 L 92/64 L 93 12/23/17 11:30 12/23/17 11:30 12/23/17 12:31 12/23/17 12:31 12/23/17 11:31 Intake & Output 12/22/17 12/23/17 12/24/17 06:59 06:59 06:59 Intake Total 1000 Balance 1000 Weight 77.111 kg General appearance: PRESENT: other - This is an ill-appearing, overly nourished female. She appears to have tardive dyskinesia. 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 ABSENT: scleral icterus Ear exam: PRESENT: normal external ear exam Mouth exam: PRESENT: dry mucosa Teeth exam: PRESENT: poor dentation Neck exam: ABSENT: carotid bruit, JVD, lymphadenopathy, thyromegaly Respiratory exam: PRESENT: rhonchi - She has coarse rhonchi throughout all lung menjivar anteriorly. She is diminished in the lower bases bilaterally Cardiovascular exam: PRESENT: tachycardia - The patient is quite tachycardic with a regular rhythm Pulses: PRESENT: normal dorsalis pedis pul GI/Abdominal exam: PRESENT: normal bowel sounds, tenderness - She is tender to palpation in the left lower quadrant. Rectal exam: PRESENT: deferred Extremities exam: PRESENT: full ROM. ABSENT: calf tenderness, clubbing, pedal edema Neurological exam: PRESENT: alert, altered, awake, oriented to person, oriented to place, oriented to time, oriented to situation, other - The patient however is still somewhat confused. She has evidence of tardive dyskinesia. Psychiatric exam: PRESENT: anxious, unusual affect. ABSENT: homicidal ideation , suicidal ideation Skin exam: PRESENT: dry, intact, warm. ABSENT: cyanosis, rash Results Laboratory Results: 12/23/17 11:59 12/23/17 11:59 12/23/17 12/23/17 12/23/17 10:55 10:55 10:55 WBC Cancelled RBC Cancelled Hgb Cancelled Hct Cancelled MCV Cancelled MCH Cancelled MCHC Cancelled RDW Cancelled Plt Count Cancelled Seg Neutrophils % Cancelled Lymphocytes % Cancelled Monocytes % Cancelled Eosinophils % Cancelled Basophils % Cancelled Absolute Neutrophils Cancelled Absolute Lymphocytes Cancelled Absolute Monocytes Cancelled Absolute Eosinophils Cancelled Absolute Basophils Cancelled Carbonic Acid HCO3/H2CO3 Ratio ABG pH ABG pCO2 ABG pO2 ABG HCO3 ABG O2 Saturation ABG Base Excess FiO2 Sodium Cancelled Potassium Cancelled Chloride Cancelled Carbon Dioxide Cancelled Anion Gap Cancelled BUN Cancelled Creatinine Cancelled Est GFR ( Amer) Cancelled Est GFR (Non-Af Amer) Cancelled Glucose Cancelled Lactic Acid Cancelled Calcium Cancelled Total Bilirubin Cancelled AST Cancelled ALT Cancelled Alkaline Phosphatase Cancelled Ammonia Total Protein Cancelled Albumin Cancelled Stool Occult Blood Blood Type Antibody Screen 12/23/17 12/23/17 12/23/17 11:37 11:59 11:59 WBC RBC Hgb Hct MCV MCH MCHC RDW Plt Count Seg Neutrophils % Lymphocytes % Monocytes % Eosinophils % Basophils % Absolute Neutrophils Absolute Lymphocytes Absolute Monocytes Absolute Eosinophils Absolute Basophils Carbonic Acid HCO3/H2CO3 Ratio ABG pH ABG pCO2 ABG pO2 ABG HCO3 ABG O2 Saturation ABG Base Excess FiO2 Sodium Potassium Chloride Carbon Dioxide Anion Gap BUN Creatinine Est GFR ( Amer) Est GFR (Non-Af Amer) Glucose Lactic Acid Calcium Total Bilirubin AST ALT Alkaline Phosphatase Ammonia < 8.7 L Total Protein Albumin Stool Occult Blood NEGATIVE Blood Type O NEGATIVE Antibody Screen NEGATIVE 12/23/17 12/23/17 12/23/17 11:59 11:59 11:59 WBC 10.7 H RBC 3.14 L Hgb 9.5 L Hct 28.3 L MCV 90 MCH 30.3 MCHC 33.6 RDW 14.2 H Plt Count 140 L Seg Neutrophils % 84.3 H Lymphocytes % 6.9 L Monocytes % 7.6 Eosinophils % 0.7 Basophils % 0.5 Absolute Neutrophils 9.0 H Absolute Lymphocytes 0.7 Absolute Monocytes 0.8 Absolute Eosinophils 0.1 Absolute Basophils 0.1 Carbonic Acid HCO3/H2CO3 Ratio ABG pH ABG pCO2 ABG pO2 ABG HCO3 ABG O2 Saturation ABG Base Excess FiO2 Sodium 131.6 L Potassium 5.2 H Chloride 99 Carbon Dioxide 23 Anion Gap 10 BUN 34 H Creatinine 2.16 H Est GFR ( Amer) 28 L Est GFR (Non-Af Amer) 23 L Glucose 138 H Lactic Acid 1.6 Calcium 8.4 Total Bilirubin 0.8 AST 24 ALT 21 Alkaline Phosphatase 59 Ammonia Total Protein 6.3 Albumin 3.3 L Stool Occult Blood Blood Type Antibody Screen 12/23/17 12:30 WBC RBC Hgb Hct MCV MCH MCHC RDW Plt Count Seg Neutrophils % Lymphocytes % Monocytes % Eosinophils % Basophils % Absolute Neutrophils Absolute Lymphocytes Absolute Monocytes Absolute Eosinophils Absolute Basophils Carbonic Acid 1.53 H HCO3/H2CO3 Ratio 12:1 ABG pH 7.20 L* ABG pCO2 50.7 H ABG pO2 48.0 L ABG HCO3 19.4 L ABG O2 Saturation 74.4 L ABG Base Excess -8.4 FiO2 3L Sodium Potassium Chloride Carbon Dioxide Anion Gap BUN Creatinine Est GFR ( Amer) Est GFR (Non-Af Amer) Glucose Lactic Acid Calcium Total Bilirubin AST ALT Alkaline Phosphatase Ammonia Total Protein Albumin Stool Occult Blood Blood Type Antibody Screen 12/23/17 12/23/17 10:55 11:59 Troponin I Cancelled < 0.012 Impressions: Head CT 12/23/17 00:00 IMPRESSION: No significant interval change from the previous study. No acute intracranial abnormalities. Other findings as noted above. EVIDENCE OF ACUTE STROKE: NO. Assessment & Plan - Diagnosis (1) Acute encephalopathy Is this a current diagnosis for this admission?: Yes Plan: The patient's acute encephalopathy is likely due to her drug overdose. She admits to drinking alcohol and taking 4 Vicodin. There also was an empty bottle of Adderall by her bedside. The patient woke up after being administered Narcan. She still seems quite altered to me. I tried to call the patient's sister who was unavailable to take my call. I am not sure what her cognitive baseline is. Also I am not sure whether the tar dive dyskinesia is new. (2) Acute respiratory failure Is this a current diagnosis for this admission?: Yes Plan: Likely multifactorial secondary to narcotic drug overdose as well as COPD exacerbation. The patient's initial blood gas revealed a pH of 7.2. This was before she received her Narcan. We are going to repeat a blood gas. At this point I am unable to get her oxygen saturations up. I am unsure due to how cool her hands are how much the machine is reading correctly. We will place her on BiPAP support for now and she will be admitted to the ICU for close monitoring. She is at high risk of decompensation of her respiratory status as we really do not know what she took today. (3) Acute renal failure Is this a current diagnosis for this admission?: Yes Plan: Her baseline creatinine is below 1. She has been started on IV fluids. She will have a chemistry panel drawn in the morning. (4) Drug overdose, intentional Is this a current diagnosis for this admission?: Yes Plan: The patient admits to taking 4 Vicodin. She also states that she drank 3 beers. She states that she has not drank in quite some time and underwent alcohol rehab. She states she does not need to be locked up. She states she was feeling a little depressed earlier in the day but she is feeling fine at this point. Psychiatry has been consulted for their recommendations. (5) COPD exacerbation Is this a current diagnosis for this admission?: Yes Plan: I will start the patient on IV Solu-Medrol. The patient coughed up quite a bit of thick green sputum while I was in the room. I will place her IV unasyn. I am concerned the patient may have aspirated. She has not yet had a chest x-ray performed. This is been ordered she did not have a chest x-ray in the emergency room. I have ordered one. (6) Hypotension Is this a current diagnosis for this admission?: Yes Plan: The patient remains hypotensive in spite of fluid boluses. She will continue IV fluids. She will be admitted to the ICU. At this point she is not requiring pressors but we will have to keep a close eye on her. (7) Tardive dyskinesia Is this a current diagnosis for this admission?: Yes Plan: I am not sure if this is a chronic problem or not. I am trying to get in touch with the patient's sister. I called her however she was unable to come to the phone. She is on a significant amount of psychiatric medications. Hopefully we will get her medications put in the computer in the near future so that I can reconcile them. (8) Hyperkalemia Is this a current diagnosis for this admission?: Yes Plan: Secondary to acute renal failure. She will have a chemistry panel drawn in the morning. (9) Hyponatremia Is this a current diagnosis for this admission?: Yes Plan: Possibly secondary to intravascular volume depletion. She will be placed on IV fluids. Also the patient could drink more than we know. It could be due to her underlying alcohol use. She will have a chemistry panel drawn in the morning and we will follow-up with those results. (10) Opiate dependence, continuous Is this a current diagnosis for this admission?: Yes Plan: The patient uses Vicodin on a regular basis. She took an overdose of Vicodin today intentionally. (11) History of alcohol abuse Is this a current diagnosis for this admission?: Yes Plan: The patient states she went through an alcohol rehab program. She states she has not drank in several days but did drink today because she was depressed when she took her Vicodin. I will have lorazepam available as needed in the event that she should go through alcohol withdrawal. (12) Hepatitis C Is this a current diagnosis for this admission?: Yes Plan: Reportedly the patient is completed a course of treatment. She is followed with Dr. Alexis in the past (13) Anemia Is this a current diagnosis for this admission?: Yes Plan: The patient has an anemia that likely is due to chronic disease. I will draw an anemia panel. (14) Full code status Is this a current diagnosis for this admission?: Yes - Time Time Spent: Greater than 70 Minutes - Inpatient Certification Medical Necessity: Need Close Monitoring Due to Risk of Patient Decompensation, Need For IV Fluids, Need For Continuous Telemetry Monitoring, Need for Nebulizer Therapy and Monitoring of Response, Need for IV Antibiotics, Other - The patient will be fully admitted to the hospital. I expect her hospitalization to last for greater than 2 midnights. She has multiple issues and is being admitted to the ICU. Timing of disposition will be determined by her clinical course
[2017-12-23] MEDS ORDERED: IPRATROPIUM/ALBUTEROL 0.5-2.5 MG/3 ML AMPUL NEB SCH (14:45)
[2017-12-23 14:55] LABS: ARTERIAL BLOOD FIO2 3L; ARTERIAL BLOOD H2CO3 1.16 mmol/L (1.05-1.35); ARTERIAL BLOOD HCO3 17.2 mmol/L (20-26); ARTERIAL BLOOD O2 SATURATION 84.2 % (94-98); ARTERIAL BLOOD PCO2 38.6 mmHg (35-45); ARTERIAL BLOOD PH 7.27 (7.35-7.45); ARTERIAL BLOOD PO2 54.6 mmHg (80-100); ARTERIAL BLOOD TOTAL CO2 18.4 mmol/L (21-25)
[2017-12-23 15:01] LABS: URINE AMPHETAMINES SCREEN NEGATIVE; URINE BARBITURATES SCREEN NEGATIVE; URINE BENZODIAZEPINES SCREEN NEGATIVE; URINE COCAINE SCREEN NEGATIVE; URINE MARIJUANA (THC) SCREEN NEGATIVE; URINE PHENCYCLIDINE SCREEN NEGATIVE
[2017-12-23 15:05] LABS: URINE METHADONE SCREEN NEGATIVE
[2017-12-23] MEDS ORDERED: ENOXAPARIN SODIUM INJ 30 MG/0.3 ML DISP.SYRIN SUBCUT ONE (16:00)
[2017-12-23 16:04] LABS: CREATINE KINASE MB 4.34 ng/mL (<4.55)
[2017-12-23 16:07] LABS: TROPONIN I < 0.012 ng/mL
--- NOTE | 2017-12-23 16:38 | PSYCHOLOGICAL NOTE ---
Psych Note - Psych Note Psych Note: Reason for consult: Altered mental status possible overdose Clinician attempted to evaluate patient however patient is in altered mental status. Patient is unable to identify the current year stating it is currently 1992. Patient is unable to identify the current president for the current year. Patient mumbles at time and is difficult to understand. Patient is observed to have psychomotor agitation and is unable to make eye contact. Currently patient has been admitted as an inpatient upstairs to the floor. Please reconsult once patient is medically stable.
[2017-12-23 18:50] LABS: APPEARANCE,URINE SLIGHTLY-CLOUDY; BILIRUBIN,URINE NEGATIVE (NEGATIVE); COLOR,URINE YELLOW; GLUCOSE, URINE NEGATIVE (NEGATIVE); KETONES,URINE NEGATIVE (NEGATIVE); LEUKOCYTE ESTERASE,URINE NEGATIVE (NEGATIVE); NITRITE,URINE NEGATIVE (NEGATIVE); PROTEIN,URINE NEGATIVE (NEGATIVE); URINE SPECIFIC GRAVITY 1.017; UROBILINOGEN,URINE NEGATIVE mg/dL (<2.0)
[2017-12-23] MEDS: IPRATROPIUM/ALBUTEROL 0.5-2.5 MG/3 ML AMPUL NEB SCH ×2 (20:51→23:13)
[2017-12-23] MEDS: LORAZEPAM INJ 2 MG/1 ML VIAL IV PRN (21:07)
[2017-12-23] MEDS: AMPICILLIN SODIUM/SULBACTAM NA 3 GM in NORMAL SALINE 100 ML IV SCH (21:09)
[2017-12-23] MEDS: METHYLPREDNISOLONE INJ 40 MG/1 ML SDV IV SCH (21:09)
[2017-12-23 21:22] LABS: CREATINE KINASE MB 5.12 ng/mL (<4.55)
[2017-12-23 21:27] LABS: TROPONIN I < 0.012 ng/mL
--- NOTE | 2017-12-23 21:48 | EKG REPORT ---
SEVERITY:- NORMAL ECG - SINUS RHYTHM : Confirmed by: Ellen Neff MD 23-Dec-2017 21:47:26
[2017-12-24] MEDS: ACETAMINOPHEN 325 MG TABLET PO PRN (00:29)
[2017-12-24 02:45] LABS: HEMATOCRIT 25.3 % (36.0-47.0); HEMOGLOBIN 8.7 g/dL (12.0-15.5); MEAN CORPUSCULAR HGB CONC 34.5 g/dL (32.0-36.0); MEAN CORPUSCULAR VOLUME 90 fl (80-97); PLATELET COUNT 124 10^3/uL (150-450); RED BLOOD COUNT 2.82 10^6/uL (3.72-5.28); RETICULOCYTE COUNT (AUTO) 1.77 % (0.66-2.85); WHITE BLOOD COUNT 5.9 10^3/uL (4.0-10.5)
[2017-12-24 02:47] LABS: ALANINE AMINOTRANSFERASE 22 U/L (9-52); ALBUMIN 2.9 g/dL (3.5-5.0); ALKALINE PHOSPHATASE 46 U/L (38-126); ANION GAP 12 (5-19); ASPARTATE AMINO TRANSFERASE 37 U/L (14-36); BILIRUBIN,DIRECT 0.6 mg/dL (0.0-0.4); BILIRUBIN,TOTAL 0.6 mg/dL (0.2-1.3); BLOOD UREA NITROGEN 33 mg/dL (7-20); CALCIUM 7.9 mg/dL (8.4-10.2); CARBON DIOXIDE 17 mmol/L (22-30); CHLORIDE 107 mmol/L (98-107); GLUCOSE 121 mg/dL (75-110); PHOSPHORUS 2.8 mg/dL (2.5-4.5); SODIUM 135.6 mmol/L (137-145); TOTAL PROTEIN 5.6 g/dL (6.3-8.2)
[2017-12-24] MEDS: METHYLPREDNISOLONE INJ 40 MG/1 ML SDV IV SCH ×3 (02:50→18:18)
[2017-12-24 02:59] LABS: CREATINE KINASE MB 7.84 ng/mL (<4.55)
[2017-12-24 03:04] LABS: TROPONIN I < 0.012 ng/mL
[2017-12-24 03:10] LABS: IRON(TIBC) < 10.1 ug/dL (37-170)
[2017-12-24 03:18] LABS: ABSOLUTE MONOCYTES # (MANUAL) 0.7 10^3/uL (0.1-1.4); ABSOLUTE NEUTROPHILS# (MANUAL) 4.5 10^3/uL (1.7-8.2); BASOPHILS % (MANUAL) 0 % (0-2); EOSINOPHILS % (MANUAL) 1 % (0-6); METAMYELOCYTES % (MANUAL) 1 % (0); MONOCYTES % (MANUAL) 12 % (3-13); SEGMENTED NEUTROPHILS % (MAN) 64 % (42-78); TOTAL CELLS COUNTED 100
[2017-12-24 03:21] LABS: HYPOCHROMASIA 1+; TOXIC GRANULATION 1+
[2017-12-24 03:22] LABS: ANISOCYTOSIS SLIGHT; PLATELET COMMENT DECREASED
[2017-12-24 03:24] LABS: BAND NEUTROPHILS % (MANUAL) 11 % (3-5)
[2017-12-24] MEDS: MAGNESIUM SULFATE/D5W 1 GM/100 ML RTUPB IV SCH ×3 (04:07→07:10)
[2017-12-24] MEDS: IPRATROPIUM/ALBUTEROL 0.5-2.5 MG/3 ML AMPUL NEB SCH ×6 (04:12→23:57)
[2017-12-24] MEDS: AMPICILLIN SODIUM/SULBACTAM NA 3 GM in NORMAL SALINE 100 ML IV SCH ×2 (05:38→18:18)
--- NOTE | 2017-12-24 08:53 | PDOC PROGRESS REPORT ---
Subjective Progress Note for:: 12/24/17 Subjective:: Patient is seen resting in bed. She is awake and alert. She remains confused to time, place and situation. He is aware that she is in the hospital, however she thinks it is 1993. She denies any chest pain or shortness of breath. She has an occasional cough. She denies any dyspnea. She is been off BiPAP this morning. Oxygen saturations have been in the mid 90s on 3 L. She denies any nausea, vomiting or abdominal pain. She did eat some breakfast. Remaining review of systems are unable to be obtained due to patient's mentation. Reason For Visit: DRUG OVERDOSE Physical Exam Vital Signs: Temp Pulse Resp BP Pulse Ox 99.0 F 99 25 H 119/84 94 12/24/17 08:00 12/24/17 08:35 12/24/17 08:00 12/24/17 08:00 12/24/17 08:00 Intake & Output 12/23/17 12/24/17 12/25/17 06:59 06:59 06:59 Output Total 1100 560 Balance -1100 -560 Weight 83.5 kg General appearance: PRESENT: no acute distress, disheveled, obese, well- developed, well-nourished Head exam: PRESENT: atraumatic, normocephalic Eye exam: PRESENT: conjunctiva pink, EOMI, PERRLA. ABSENT: scleral icterus Ear exam: PRESENT: normal external ear exam Mouth exam: PRESENT: moist, tongue midline Respiratory exam: PRESENT: crackles - Right base, symmetrical, unlabored Cardiovascular exam: PRESENT: RRR. ABSENT: diastolic murmur, rubs, systolic murmur Pulses: PRESENT: normal dorsalis pedis pul Vascular exam: PRESENT: normal capillary refill GI/Abdominal exam: PRESENT: normal bowel sounds, soft. ABSENT: distended, guarding, mass, organolmegaly, rebound, tenderness Rectal exam: PRESENT: deferred Extremities exam: PRESENT: full ROM. ABSENT: calf tenderness, clubbing, pedal edema Musculoskeletal exam: PRESENT: full ROM, normal inspection Neurological exam: PRESENT: alert, altered, awake, oriented to person, CN II- XII grossly intact Psychiatric exam: PRESENT: unusual affect Focused psych exam: PRESENT: flight of ideas, restlessness Skin exam: PRESENT: dry, intact, warm. ABSENT: cyanosis, rash Results Laboratory Results: 12/24/17 02:28 12/24/17 02:28 12/24/17 12/24/17 02:28 02:28 WBC 5.9 RBC 2.82 L Hgb 8.7 L Hct 25.3 L MCV 90 MCH 31.0 MCHC 34.5 RDW 14.0 Plt Count 124 L Seg Neutrophils % Not Reportable Lymphocytes % Not Reportable Monocytes % Not Reportable Eosinophils % Not Reportable Basophils % Not Reportable Absolute Neutrophils Not Reportable Absolute Lymphocytes Not Reportable Absolute Monocytes Not Reportable Absolute Eosinophils Not Reportable Absolute Basophils Not Reportable Retic Count (auto) 1.77 Absolute Retic 0.050 Sodium 135.6 L Potassium 5.0 Chloride 107 Carbon Dioxide 17 L Anion Gap 12 BUN 33 H Creatinine 1.43 H Est GFR ( Amer) 46 L Est GFR (Non-Af Amer) 38 L Glucose 121 H Calcium 7.9 L Phosphorus 2.8 Magnesium 1.1 L* Iron < 10.1 L TIBC 269 % Saturation UNABLE TO CALCULATE Ferritin 94.80 Total Bilirubin 0.6 AST 37 H ALT 22 Alkaline Phosphatase 46 Total Protein 5.6 L Albumin 2.9 L Vitamin B12 223.0 L Folate 11.20 12/23/17 12/23/17 12/23/17 15:20 15:20 20:26 Creatine Kinase 313 H 464 H CK-MB (CK-2) 4.34 Troponin I < 0.012 12/23/17 12/24/17 12/24/17 20:26 02:28 02:28 Creatine Kinase 770 H CK-MB (CK-2) 5.12 H 7.84 H Troponin I < 0.012 < 0.012 Impressions: Head CT 12/23/17 00:00 IMPRESSION: No significant interval change from the previous study. No acute intracranial abnormalities. Other findings as noted above. EVIDENCE OF ACUTE STROKE: NO. Chest X-Ray 12/23/17 13:04 IMPRESSION: 1. Right lower lobe pneumonia. 2. Ectasia of the ascending aorta. Assessment & Plan - Diagnosis (1) Acute encephalopathy Is this a current diagnosis for this admission?: Yes Plan: Patient's mentation is improving. Most likely secondary to opioid overdose and alcohol. Will monitor for possible DTs. Will add thiamine and folic acid. Ativan as needed. (2) Acute renal failure Qualifiers: Acute renal failure type: unspecified Qualified Code(s): N17.9 - Acute kidney failure, unspecified Is this a current diagnosis for this admission?: Yes Plan: Improving with IV hydration. (3) Acute respiratory failure Qualifiers: Respiratory failure complication: hypoxia and hypercapnia Qualified Code(s) : J96.01 - Acute respiratory failure with hypoxia; J96.02 - Acute respiratory failure with hypercapnia; J96.02 - Acute respiratory failure with hypercapnia; J96.02 - Acute respiratory failure with hypercapnia Is this a current diagnosis for this admission?: Yes Plan: Patient did require BiPAP most of yesterday due to hypercapnia and hypoxia. This is improved. She does have a right lower lobe pneumonia possible aspiration. She is on appropriate antibiotic coverage. (4) Bacterial pneumonia Is this a current diagnosis for this admission?: Yes Plan: Continue current antibiotic coverage. Blood cultures and sputum cultures are pending. Chest x-ray shows right lower lobe infiltrate. (5) Diabetes mellitus Qualifiers: Diabetes mellitus type: type 2 Is this a current diagnosis for this admission?: Yes Plan: We will cover her with pain scale insulin for now. She is just started to eat. (6) Drug overdose, intentional Qualifiers: Encounter type: initial encounter Qualified Code(s): T50.902A - Poisoning by unspecified drugs, medicaments and biological substances, intentional self- harm, initial encounter Is this a current diagnosis for this admission?: Yes Plan: Patient still confused but more awake. (7) Hepatitis C Qualifiers: Viral hepatitis chronicity: chronic Is this a current diagnosis for this admission?: Yes Plan: She has been treated and followed by Dr. Traore (8) Opiate dependence, continuous Is this a current diagnosis for this admission?: Yes Plan: Patient takes Vicodin as needed basis. She apparently took overdose yesterday. She reportedly accompanying it with alcohol. (9) Tardive dyskinesia Is this a current diagnosis for this admission?: Yes Plan: According to nursing this is somewhat improved since yesterday. - Time Time Spent with patient: 25-34 minutes Total Critical Time (Minutes): 30 Medications reviewed and adjusted accordingly: Yes
[2017-12-24] MEDS: CITALOPRAM HYDROBROMIDE 20 MG TABLET PO SCH (09:19)
[2017-12-24] MEDS: POLYETHYLENE GLYCOL 3350 POWDER 17 GM/1 PACKET PO SCH (09:20)
[2017-12-24] MEDS: MAGNESIUM OXIDE 400 MG TABLET PO SCH (09:20)
[2017-12-24] MEDS: FOLIC ACID 1 MG TABLET PO SCH (09:21)
[2017-12-24] MEDS: THIAMINE HCL 100 MG TABLET PO SCH (09:21)
[2017-12-24] MEDS: ENOXAPARIN SODIUM INJ 30 MG/0.3 ML DISP.SYRIN SUBCUT SCH (09:26)
[2017-12-24] MEDS: LORAZEPAM INJ 2 MG/1 ML VIAL IV PRN ×2 (09:55→21:22)
[2017-12-24] MEDS ORDERED: (PENDING PHARMACY ID) (Umeclidinium Brm/Vilanterol Tr [Anoro Ellipta 62.5-25 Mcg Inh] 1 PU IH SCH (10:00)
[2017-12-24] MEDS ORDERED: AMLODIPINE BESYLATE 10 MG TABLET PO SCH (10:00)
[2017-12-24] MEDS ORDERED: (PENDING PHARMACY ID) (Aripiprazole [Abilify 10 Mg Tablet] 10 MG) PO SCH (10:00)
[2017-12-24] MEDS ORDERED: (PENDING PHARMACY ID) (Buspirone Hcl [Buspar 15 Mg Tablet] 7.5 MG) PO SCH (10:00)
[2017-12-24] MEDS: ARIPIPRAZOLE 5 MG TABLET PO SCH (10:24)
[2017-12-24] MEDS ORDERED: HALOPERIDOL LACTATE INJ 5 MG/1 ML VIAL ONE (10:42)
[2017-12-24] MEDS: INSULIN LISPRO 100 UNIT/ML 3 ML VIAL SUBCUT PRN ×2 (18:18→22:47)
[2017-12-25] MEDS ORDERED: LORAZEPAM INJ 2 MG/1 ML VIAL ONE ×2 (02:10→04:05)
[2017-12-25] MEDS: METHYLPREDNISOLONE INJ 40 MG/1 ML SDV IV SCH (02:12)
[2017-12-25] MEDS: LORAZEPAM INJ 2 MG/1 ML VIAL IV PRN (03:31)
[2017-12-25] MEDS: IPRATROPIUM/ALBUTEROL 0.5-2.5 MG/3 ML AMPUL NEB SCH ×6 (04:13→23:39)
[2017-12-25] MEDS ORDERED: LORAZEPAM INJ 2 MG/1 ML VIAL IV ONE ×2 (04:15)
[2017-12-25] MEDS: LANSOPRAZOLE 30 MG TAB.RAP.DR PO SCH (05:06)
[2017-12-25] MEDS: AMPICILLIN SODIUM/SULBACTAM NA 3 GM in NORMAL SALINE 100 ML IV SCH ×2 (05:06→17:55)
[2017-12-25 06:28] LABS: ABSOLUTE LYMPHOCYTES (AUTO) 0.6 10^3/uL (0.5-4.7); ABSOLUTE MONOCYTES (AUTO) 0.6 10^3/uL (0.1-1.4); ABSOLUTE NEUT (AUTO) 8.2 10^3/uL (1.7-8.2); BASOPHILS % (AUTO) 0.2 % (0-2); HEMATOCRIT 27.6 % (36.0-47.0); HEMOGLOBIN 9.8 g/dL (12.0-15.5); LYMPHOCYTES % (AUTO) 6.1 % (13-45); MEAN CORPUSCULAR HEMOGLOBIN 30.9 pg (27.0-33.4); MEAN CORPUSCULAR HGB CONC 35.4 g/dL (32.0-36.0); MEAN CORPUSCULAR VOLUME 87 fl (80-97); MONOCYTES % (AUTO) 6.2 % (3-13); PLATELET COUNT 178 10^3/uL (150-450); RED BLOOD COUNT 3.17 10^6/uL (3.72-5.28); RED CELL DISTRIBUTION WIDTH 14.3 % (11.5-14.0); SEGMENTED NEUTROPHILS % (AUTO) 87.5 % (42-78); TOTAL CELLS COUNTED % (AUTO) 100 %; WHITE BLOOD COUNT 9.4 10^3/uL (4.0-10.5)
[2017-12-25 07:21] LABS: ALANINE AMINOTRANSFERASE 21 U/L (9-52); ALBUMIN 3.3 g/dL (3.5-5.0); ALKALINE PHOSPHATASE 54 U/L (38-126); ANION GAP 11 (5-19); ASPARTATE AMINO TRANSFERASE 32 U/L (14-36); BILIRUBIN,DIRECT 0.4 mg/dL (0.0-0.4); BILIRUBIN,TOTAL 0.4 mg/dL (0.2-1.3); BLOOD UREA NITROGEN 25 mg/dL (7-20); CALCIUM 9.4 mg/dL (8.4-10.2); CARBON DIOXIDE 22 mmol/L (22-30); CHLORIDE 108 mmol/L (98-107); GLUCOSE 167 mg/dL (75-110); PHOSPHORUS 2.2 mg/dL (2.5-4.5); POTASSIUM 3.9 mmol/L (3.6-5.0); SODIUM 141.2 mmol/L (137-145); TOTAL PROTEIN 6.3 g/dL (6.3-8.2)
[2017-12-25] MEDS ORDERED: BUSPIRONE HCL 10 MG PO SCH (08:33)
[2017-12-25] MEDS ORDERED: HALOPERIDOL LACTATE INJ 5 MG/1 ML VIAL IV ONE (09:21)
[2017-12-25] MEDS ORDERED: NORMAL SALINE 1000 ML 1,000 ML with POTASSIUM CHLORIDE 20 MEQ, MAGNESIUM SULFATE 8 MEQ,... IV SCH ×5 (09:30)
--- NOTE | 2017-12-25 09:32 | PDOC PROGRESS REPORT ---
Subjective Progress Note for:: 12/25/17 Subjective:: Patient is seen resting in bed. She is presently on BIPAP. She had apparently increased agitation overnight and received IV ativan this morning. She does wake up to verbal stimuli. She thinks she is home this morning. Review of systems are unobtainable due to mentation Reason For Visit: DRUG OVERDOSE Physical Exam Vital Signs: Temp Pulse Resp BP Pulse Ox 98.1 F 85 24 H 162/97 H 90 L 12/25/17 07:27 12/25/17 08:32 12/25/17 08:32 12/25/17 07:27 12/25/17 08:32 Intake & Output 12/24/17 12/25/17 12/26/17 06:59 06:59 06:59 Intake Total 422 Output Total 1100 3745 Balance -1100 -3321 Weight 83.5 kg 81.6 kg General appearance: PRESENT: no acute distress, disheveled, obese, well- developed, well-nourished Head exam: PRESENT: atraumatic, normocephalic Eye exam: PRESENT: conjunctiva pink, EOMI, PERRLA. ABSENT: scleral icterus Ear exam: PRESENT: normal external ear exam Mouth exam: PRESENT: moist, tongue midline Teeth exam: PRESENT: poor dentation Neck exam: ABSENT: carotid bruit, JVD, lymphadenopathy, thyromegaly Respiratory exam: PRESENT: crackles, symmetrical, unlabored Cardiovascular exam: PRESENT: RRR. ABSENT: diastolic murmur, rubs, systolic murmur Pulses: PRESENT: normal carotid pulses, normal radial pulses Vascular exam: PRESENT: normal capillary refill GI/Abdominal exam: PRESENT: normal bowel sounds, soft. ABSENT: distended, guarding, mass, organolmegaly, rebound, tenderness Rectal exam: PRESENT: deferred Extremities exam: PRESENT: full ROM. ABSENT: calf tenderness, clubbing, pedal edema Musculoskeletal exam: PRESENT: ambulatory Neurological exam: PRESENT: alert, altered, CN II-XII grossly intact Psychiatric exam: PRESENT: agitated Focused psych exam: PRESENT: restlessness Skin exam: PRESENT: dry, intact, warm. ABSENT: cyanosis, rash Results Laboratory Results: 12/25/17 06:17 12/25/17 06:17 12/24/17 12/25/17 12/25/17 15:25 06:17 06:17 WBC 9.4 RBC 3.17 L Hgb 9.8 L Hct 27.6 L MCV 87 MCH 30.9 MCHC 35.4 RDW 14.3 H Plt Count 178 Seg Neutrophils % 87.5 H Lymphocytes % 6.1 L Monocytes % 6.2 Eosinophils % 0.0 Basophils % 0.2 Absolute Neutrophils 8.2 Absolute Lymphocytes 0.6 Absolute Monocytes 0.6 Absolute Eosinophils 0.0 Absolute Basophils 0.0 Sodium 141.2 Potassium 3.9 Chloride 108 H Carbon Dioxide 22 Anion Gap 11 BUN 25 H Creatinine 0.73 Est GFR ( Amer) > 60 Est GFR (Non-Af Amer) > 60 Glucose 167 H Calcium 9.4 Phosphorus 2.2 L Magnesium 2.3 D 2.2 Total Bilirubin 0.4 AST 32 ALT 21 Alkaline Phosphatase 54 Total Protein 6.3 Albumin 3.3 L 12/23/17 12/23/17 12/23/17 15:20 15:20 20:26 Creatine Kinase 313 H 464 H CK-MB (CK-2) 4.34 Troponin I < 0.012 12/23/17 12/24/17 12/24/17 20:26 02:28 02:28 Creatine Kinase 770 H CK-MB (CK-2) 5.12 H 7.84 H Troponin I < 0.012 < 0.012 Impressions: Head CT 12/23/17 00:00 IMPRESSION: No significant interval change from the previous study. No acute intracranial abnormalities. Other findings as noted above. EVIDENCE OF ACUTE STROKE: NO. Chest X-Ray 12/23/17 13:04 IMPRESSION: 1. Right lower lobe pneumonia. 2. Ectasia of the ascending aorta. Assessment & Plan - Diagnosis (1) Acute encephalopathy Is this a current diagnosis for this admission?: Yes Plan: Patient's mentation is still waxing and waning due to admitted opioid overdose and alcohol. Will monitor for possible DTs. Will give one banana bag now One dose of haldol. Restart her buspar (2) Acute renal failure Qualifiers: Acute renal failure type: unspecified Qualified Code(s): N17.9 - Acute kidney failure, unspecified Is this a current diagnosis for this admission?: Yes Plan: Improving with IV hydration. (3) Acute respiratory failure Qualifiers: Respiratory failure complication: hypoxia and hypercapnia Qualified Code(s) : J96.01 - Acute respiratory failure with hypoxia; J96.02 - Acute respiratory failure with hypercapnia; J96.02 - Acute respiratory failure with hypercapnia; J96.02 - Acute respiratory failure with hypercapnia Is this a current diagnosis for this admission?: Yes Plan: Patient did require BiPAP most of yesterday due to hypercapnia and hypoxia. This is improved. She does have a right lower lobe pneumonia possible aspiration. She is on appropriate antibiotic coverage. (4) Bacterial pneumonia Is this a current diagnosis for this admission?: Yes Plan: Continue current antibiotic coverage. Blood cultures and sputum cultures are pending. Chest x-ray shows right lower lobe infiltrate. (5) Diabetes mellitus Qualifiers: Diabetes mellitus type: type 2 Is this a current diagnosis for this admission?: Yes Plan: We will cover her with pain scale insulin for now. She is just started to eat. (6) Drug overdose, intentional Qualifiers: Encounter type: initial encounter Qualified Code(s): T50.902A - Poisoning by unspecified drugs, medicaments and biological substances, intentional self- harm, initial encounter Is this a current diagnosis for this admission?: Yes Plan: Patient still confused but more awake. (7) Hepatitis C Qualifiers: Viral hepatitis chronicity: chronic Is this a current diagnosis for this admission?: Yes Plan: She has been treated and followed by Dr. Traore (8) Opiate dependence, continuous Is this a current diagnosis for this admission?: Yes Plan: Patient takes Vicodin as needed basis. She apparently took overdose yesterday. She reportedly accompanying it with alcohol. (9) Tardive dyskinesia Is this a current diagnosis for this admission?: Yes Plan: According to nursing this is somewhat improved since yesterday. - Time Time Spent with patient: 25-34 minutes Total Critical Time (Minutes): 15 Medications reviewed and adjusted accordingly: Yes
[2017-12-25] MEDS ORDERED: PREDNISONE 20 MG TABLET PO SCH (10:00)
[2017-12-25] MEDS: MAGNESIUM OXIDE 400 MG TABLET PO SCH (10:57)
[2017-12-25] MEDS: POLYETHYLENE GLYCOL 3350 POWDER 17 GM/1 PACKET PO SCH (10:58)
[2017-12-25] MEDS: ARIPIPRAZOLE 5 MG TABLET PO SCH (10:58)
[2017-12-25] MEDS: FOLIC ACID 1 MG TABLET PO SCH (10:58)
[2017-12-25] MEDS: CITALOPRAM HYDROBROMIDE 20 MG TABLET PO SCH (10:58)
[2017-12-25] MEDS: THIAMINE HCL 100 MG TABLET PO SCH (10:58)
[2017-12-25] MEDS: ENOXAPARIN SODIUM INJ 30 MG/0.3 ML DISP.SYRIN SUBCUT SCH (10:59)
[2017-12-25] MEDS ORDERED: NORMAL SALINE 1000 ML 1,000 ML with POTASSIUM CHLORIDE 20 MEQ, THIAMINE HCL 100 MG, MVI... IV SCH ×8 (12:00→18:00)
[2017-12-25] MEDS ORDERED: NORMAL SALINE 1000 ML 1,000 ML with POTASSIUM CHLORIDE 20 MEQ, THIAMINE HCL 100 MG, MVI... IV ONE ×4 (12:00)
[2017-12-25] MEDS: GABAPENTIN 300 MG CAPSULE PO SCH ×2 (13:01→22:13)
[2017-12-25] MEDS ORDERED: HALOPERIDOL LACTATE INJ 5 MG/1 ML VIAL IV PRN (15:24)
[2017-12-25] MEDS ORDERED: METOPROLOL TARTRATE PF/INJ 5 MG/5 ML SDV IV PRN (18:30)
[2017-12-25] MEDS ORDERED: METOPROLOL TARTRATE PF/INJ 5 MG/5 ML SDV IV ONE (18:45)
[2017-12-25] MEDS: QUETIAPINE FUMARATE 100 MG TABLET PO SCH (22:13)
[2017-12-26] MEDS: IPRATROPIUM/ALBUTEROL 0.5-2.5 MG/3 ML AMPUL NEB SCH ×5 (03:56→20:52)
[2017-12-26] MEDS: GABAPENTIN 300 MG CAPSULE PO SCH ×3 (05:23→21:39)
[2017-12-26] MEDS: AMPICILLIN SODIUM/SULBACTAM NA 3 GM in NORMAL SALINE 100 ML IV SCH (05:23)
[2017-12-26] MEDS: LANSOPRAZOLE 30 MG TAB.RAP.DR PO SCH (05:24)
[2017-12-26 07:29] LABS: HEMATOCRIT 30.8 % (36.0-47.0); HEMOGLOBIN 10.7 g/dL (12.0-15.5); MEAN CORPUSCULAR HEMOGLOBIN 30.6 pg (27.0-33.4); MEAN CORPUSCULAR HGB CONC 34.7 g/dL (32.0-36.0); MEAN CORPUSCULAR VOLUME 88 fl (80-97); PLATELET COUNT 149 10^3/uL (150-450); RED BLOOD COUNT 3.49 10^6/uL (3.72-5.28); RED CELL DISTRIBUTION WIDTH 14.3 % (11.5-14.0); WHITE BLOOD COUNT 8.6 10^3/uL (4.0-10.5)
--- NOTE | 2017-12-26 07:34 | EKG REPORT ---
SEVERITY:- NORMAL ECG - SINUS RHYTHM : Confirmed by: Ryan Balderas MD 26-Dec-2017 07:33:15
[2017-12-26] MEDS ORDERED: NORMAL SALINE 1000 ML 1,000 ML with POTASSIUM CHLORIDE 20 MEQ, THIAMINE HCL 100 MG, MVI... IV SCH ×4 (08:00)
[2017-12-26 08:07] LABS: ALANINE AMINOTRANSFERASE 23 U/L (9-52); ALBUMIN 3.5 g/dL (3.5-5.0); ALKALINE PHOSPHATASE 61 U/L (38-126); ANION GAP 12 (5-19); ASPARTATE AMINO TRANSFERASE 22 U/L (14-36); BILIRUBIN,DIRECT 0.3 mg/dL (0.0-0.4); BILIRUBIN,TOTAL 0.3 mg/dL (0.2-1.3); BLOOD UREA NITROGEN 21 mg/dL (7-20); CALCIUM 9.6 mg/dL (8.4-10.2); CARBON DIOXIDE 24 mmol/L (22-30); CHLORIDE 107 mmol/L (98-107); GLUCOSE 112 mg/dL (75-110); PHOSPHORUS 2.5 mg/dL (2.5-4.5); POTASSIUM 3.6 mmol/L (3.6-5.0); SODIUM 143.3 mmol/L (137-145); TOTAL PROTEIN 6.5 g/dL (6.3-8.2)
[2017-12-26 08:37] LABS: ABSOLUTE LYMPHOCYTES# (MANUAL) 1.6 10^3/uL (0.5-4.7); ABSOLUTE MONOCYTES # (MANUAL) 0.2 10^3/uL (0.1-1.4); ABSOLUTE NEUTROPHILS# (MANUAL) 6.8 10^3/uL (1.7-8.2); BAND NEUTROPHILS % (MANUAL) 3 % (3-5); BASOPHILS % (MANUAL) 0 % (0-2); EOSINOPHILS % (MANUAL) 0 % (0-6); LYMPHOCYTES % (MANUAL) 16 % (13-45); METAMYELOCYTES % (MANUAL) 4 % (0); MONOCYTES % (MANUAL) 2 % (3-13); MYELOCYTES % (MANUAL) 3 % (0); SEGMENTED NEUTROPHILS % (MAN) 69 % (42-78); TOTAL CELLS COUNTED 100
[2017-12-26 08:38] LABS: ANISOCYTOSIS SLIGHT; OVALOCYTES 1+; PLATELET COMMENT ADEQUATE; TOXIC GRANULATION SLIGHT; TOXIC VACUOLATION PRESENT
[2017-12-26 08:39] LABS: PLATELET CLUMPS PRESENT
[2017-12-26] MEDS: NORMAL SALINE 1000 ML 1,000 ML with POTASSIUM CHLORIDE 20 MEQ, THIAMINE HCL 100 MG, MVI... IV SCH ×4 (08:59)
[2017-12-26] MEDS: CITALOPRAM HYDROBROMIDE 20 MG TABLET PO SCH (09:43)
[2017-12-26] MEDS: POLYETHYLENE GLYCOL 3350 POWDER 17 GM/1 PACKET PO SCH (09:43)
[2017-12-26] MEDS: MAGNESIUM OXIDE 400 MG TABLET PO SCH (09:43)
[2017-12-26] MEDS: PREDNISONE 20 MG TABLET PO SCH (09:43)
[2017-12-26] MEDS: ARIPIPRAZOLE 5 MG TABLET PO SCH (09:43)
[2017-12-26] MEDS: BUSPIRONE HCL 10 MG TABLET PO SCH ×2 (09:43→21:38)
[2017-12-26] MEDS: ENOXAPARIN SODIUM INJ 30 MG/0.3 ML DISP.SYRIN SUBCUT SCH (09:44)
--- NOTE | 2017-12-26 16:18 | PDOC PROGRESS REPORT ---
Subjective Progress Note for:: 12/26/17 Subjective:: Patient is seen resting in bed. She is presently on BIPAP. She is answering questions appropriately . She denied pain, shortness of breath or dyspnea. She denies nausea, vomiting or abdominal pain. She denies any significant arthralgias or myalgias. The review of systems are negative. Reason For Visit: DRUG OVERDOSE Physical Exam Vital Signs: Temp Pulse Resp BP Pulse Ox 98.7 F 91 18 147/89 H 96 12/26/17 11:49 12/26/17 12:07 12/26/17 12:07 12/26/17 11:49 12/26/17 12:07 Intake & Output 12/25/17 12/26/17 12/27/17 06:59 06:59 06:59 Intake Total 422 0 125 Output Total 3745 3750 1000 Balance -3323 -3750 -875 Weight 81.6 kg 78 kg General appearance: PRESENT: no acute distress, obese, well-developed, well- nourished Head exam: PRESENT: atraumatic, normocephalic Eye exam: PRESENT: conjunctiva pink, EOMI, PERRLA. ABSENT: scleral icterus Ear exam: PRESENT: normal external ear exam Mouth exam: PRESENT: dry mucosa Neck exam: ABSENT: carotid bruit, JVD, lymphadenopathy, thyromegaly Respiratory exam: PRESENT: crackles, symmetrical, unlabored - Right base Cardiovascular exam: PRESENT: RRR. ABSENT: diastolic murmur, rubs, systolic murmur Pulses: PRESENT: normal dorsalis pedis pul Vascular exam: PRESENT: normal capillary refill GI/Abdominal exam: PRESENT: normal bowel sounds, soft. ABSENT: distended, guarding, mass, organolmegaly, rebound, tenderness Rectal exam: PRESENT: deferred Extremities exam: PRESENT: full ROM. ABSENT: calf tenderness, clubbing, pedal edema Musculoskeletal exam: PRESENT: ambulatory, full ROM, normal inspection Neurological exam: PRESENT: alert, awake, oriented to person, oriented to place , oriented to time, oriented to situation, CN II-XII grossly intact. ABSENT: motor sensory deficit Psychiatric exam: PRESENT: appropriate affect Skin exam: PRESENT: dry, intact, warm. ABSENT: cyanosis, rash Results Laboratory Results: 12/26/17 06:05 12/26/17 06:05 12/26/17 12/26/17 06:05 06:05 WBC 8.6 RBC 3.49 L Hgb 10.7 L Hct 30.8 L MCV 88 MCH 30.6 MCHC 34.7 RDW 14.3 H Plt Count 149 L Seg Neutrophils % Not Reportable Lymphocytes % Not Reportable Monocytes % Not Reportable Eosinophils % Not Reportable Basophils % Not Reportable Absolute Neutrophils Not Reportable Absolute Lymphocytes Not Reportable Absolute Monocytes Not Reportable Absolute Eosinophils Not Reportable Absolute Basophils Not Reportable Sodium 143.3 Potassium 3.6 Chloride 107 Carbon Dioxide 24 Anion Gap 12 BUN 21 H Creatinine 0.62 Est GFR ( Amer) > 60 Est GFR (Non-Af Amer) > 60 Glucose 112 H Calcium 9.6 Phosphorus 2.5 Magnesium 1.8 Total Bilirubin 0.3 AST 22 ALT 23 Alkaline Phosphatase 61 Total Protein 6.5 Albumin 3.5 12/23/17 12/23/17 12/23/17 15:20 15:20 20:26 Creatine Kinase 313 H 464 H CK-MB (CK-2) 4.34 Troponin I < 0.012 12/23/17 12/24/17 12/24/17 20:26 02:28 02:28 Creatine Kinase 770 H CK-MB (CK-2) 5.12 H 7.84 H Troponin I < 0.012 < 0.012 Impressions: Head CT 12/23/17 00:00 IMPRESSION: No significant interval change from the previous study. No acute intracranial abnormalities. Other findings as noted above. EVIDENCE OF ACUTE STROKE: NO. Chest X-Ray 12/23/17 13:04 IMPRESSION: 1. Right lower lobe pneumonia. 2. Ectasia of the ascending aorta. Assessment & Plan - Diagnosis (1) Acute encephalopathy Is this a current diagnosis for this admission?: Yes Plan: Much improved today. DC restraints and any type of IV sedation. Will consult psych for their input. (2) Acute renal failure Qualifiers: Acute renal failure type: unspecified Qualified Code(s): N17.9 - Acute kidney failure, unspecified Is this a current diagnosis for this admission?: Yes Plan: Resolved (3) Acute respiratory failure Qualifiers: Respiratory failure complication: hypoxia and hypercapnia Qualified Code(s) : J96.01 - Acute respiratory failure with hypoxia; J96.02 - Acute respiratory failure with hypercapnia; J96.02 - Acute respiratory failure with hypercapnia; J96.02 - Acute respiratory failure with hypercapnia Is this a current diagnosis for this admission?: Yes Plan: Patient did require BiPAP most of yesterday due to hypercapnia and hypoxia. This is improved. She does have a right lower lobe pneumonia possible aspiration. She is on appropriate antibiotic coverage. (4) Bacterial pneumonia Is this a current diagnosis for this admission?: Yes Plan: Switch to oral antibiotic coverage. Chest x-ray shows right lower lobe infiltrate (5) Diabetes mellitus Qualifiers: Diabetes mellitus type: type 2 Is this a current diagnosis for this admission?: Yes Plan: We will cover her with pain scale insulin for now. She is just started to eat. (6) Drug overdose, intentional Qualifiers: Encounter type: initial encounter Qualified Code(s): T50.902A - Poisoning by unspecified drugs, medicaments and biological substances, intentional self- harm, initial encounter Is this a current diagnosis for this admission?: Yes Plan: Patient still confused but more awake. (7) Hepatitis C Qualifiers: Viral hepatitis chronicity: chronic Is this a current diagnosis for this admission?: Yes Plan: She has been treated and followed by Dr. Traore (8) Opiate dependence, continuous Is this a current diagnosis for this admission?: Yes Plan: Patient takes Vicodin as needed basis. She apparently took overdose yesterday. She reportedly accompanying it with alcohol. - Time Time Spent with patient: 25-34 minutes Total Critical Time (Minutes): 15 Medications reviewed and adjusted accordingly: Yes
[2017-12-26] MEDS: INSULIN LISPRO 100 UNIT/ML 3 ML VIAL SUBCUT PRN (18:01)
[2017-12-26] MEDS: AMOXICILLIN TR/POT CLAVULANATE 500-125 MG TAB PO SCH (21:38)
[2017-12-26] MEDS: QUETIAPINE FUMARATE 100 MG TABLET PO SCH (21:39)
[2017-12-27] MEDS: IPRATROPIUM/ALBUTEROL 0.5-2.5 MG/3 ML AMPUL NEB SCH ×6 (00:53→20:06)
[2017-12-27] MEDS: GABAPENTIN 300 MG CAPSULE PO SCH ×3 (05:21→21:09)
[2017-12-27] MEDS: LANSOPRAZOLE 30 MG TAB.RAP.DR PO SCH (05:21)
[2017-12-27] MEDS: AMOXICILLIN TR/POT CLAVULANATE 500-125 MG TAB PO SCH ×3 (05:24→21:08)
[2017-12-27] MEDS: ENOXAPARIN SODIUM INJ 30 MG/0.3 ML DISP.SYRIN SUBCUT SCH (09:31)
[2017-12-27] MEDS: NORMAL SALINE 1000 ML 1,000 ML with POTASSIUM CHLORIDE 20 MEQ, THIAMINE HCL 100 MG, MVI... IV SCH ×4 (09:41)
[2017-12-27] MEDS: POLYETHYLENE GLYCOL 3350 POWDER 17 GM/1 PACKET PO SCH (09:42)
[2017-12-27] MEDS: ARIPIPRAZOLE 5 MG TABLET PO SCH (09:42)
[2017-12-27] MEDS: CITALOPRAM HYDROBROMIDE 20 MG TABLET PO SCH (09:42)
[2017-12-27] MEDS: MAGNESIUM OXIDE 400 MG TABLET PO SCH (09:42)
[2017-12-27] MEDS: BUSPIRONE HCL 10 MG TABLET PO SCH ×2 (09:42→21:09)
[2017-12-27] MEDS: PREDNISONE 20 MG TABLET PO SCH (09:42)
[2017-12-27] MEDS: ACETAMINOPHEN 325 MG TABLET PO PRN (09:45)
[2017-12-27 12:18] LABS: LYMPHOCYTES % (MANUAL) 11 % (13-45)
[2017-12-27 12:22] LABS: ABSOLUTE LYMPHOCYTES# (MANUAL) 0.6 10^3/uL (0.5-4.7)
[2017-12-27 12:41] LABS: PATH REVIEW PATHOLOGIST REVIEWED
--- NOTE | 2017-12-27 14:41 | PDOC PROGRESS REPORT ---
Subjective Progress Note for:: 12/27/17 Subjective:: This patient was admitted with drug overdose. She was found to be encephalopathic as well as with acute respiratory failure. Patient has a history of opiate dependency on Vicodin as needed in appears she overdosed prior to admission. She also apparently ingested alcohol. Patient is awake and alert but still appears to be somewhat confused. She is requesting pain medicine complaining of pain in her knees. Acute encephalopathy multifactorial secondary to drug overdose as well as possible hypercapnic respiratory failure as well as alcohol. Patient's mental status is improving. Psych consult pending 2. Acute kidney injury resolved 3. Acute respiratory failure, hypercapnic and hypoxia on intermittent BiPAP use. 4. Right lower lobe pneumonia possibly aspiration. Will continue current antibiotics 5. Type 2 diabetes mellitus on sliding scale insulin 6. drug overdose likely accidental. Will await psych evaluation 7. History of hepatitis C currently being treated by GI 8. Continuous opiate dependence was started on some low-dose narcotics as patient is requesting pain control 9. Anemia hemoglobin is controlled and there is no evidence of acute blood loss. I also discussed with hematology lab and apparently the immature white blood cells as seen have been reviewed by the pathologist and this have been corrected to be of no consequence. 10. Respiratory acidosis likely multifactorial including pneumonia, drug overdose, will continue to monitor Reason For Visit: DRUG OVERDOSE Physical Exam Vital Signs: Temp Pulse Resp BP Pulse Ox 98.6 F 70 16 148/83 H 93 12/27/17 11:33 12/27/17 12:31 12/27/17 12:31 12/27/17 11:33 12/27/17 12:31 Intake & Output 12/26/17 12/27/17 12/28/17 06:59 06:59 06:59 Intake Total 0 2213 175 Output Total 3750 3300 Balance -3750 -1087 175 Weight 78 kg 78.4 kg General appearance: PRESENT: no acute distress, well-developed, well-nourished Head exam: PRESENT: atraumatic, normocephalic Eye exam: PRESENT: conjunctiva pink, EOMI, PERRLA. ABSENT: scleral icterus Ear exam: PRESENT: normal external ear exam Mouth exam: PRESENT: moist, tongue midline Neck exam: ABSENT: carotid bruit, JVD, lymphadenopathy, thyromegaly Respiratory exam: PRESENT: clear to auscultation abiola. ABSENT: rales, rhonchi, wheezes Cardiovascular exam: PRESENT: RRR. ABSENT: diastolic murmur, rubs, systolic murmur Pulses: PRESENT: normal dorsalis pedis pul Vascular exam: PRESENT: normal capillary refill GI/Abdominal exam: PRESENT: normal bowel sounds, soft. ABSENT: distended, guarding, mass, organolmegaly, rebound, tenderness Rectal exam: PRESENT: deferred Extremities exam: PRESENT: full ROM. ABSENT: calf tenderness, clubbing, pedal edema Neurological exam: PRESENT: alert, awake, oriented to person, oriented to place , oriented to time, oriented to situation, CN II-XII grossly intact. ABSENT: motor sensory deficit Psychiatric exam: PRESENT: appropriate affect, normal mood. ABSENT: homicidal ideation, suicidal ideation Skin exam: PRESENT: dry, intact, warm. ABSENT: cyanosis, rash Results Laboratory Results: 12/26/17 06:05 12/26/17 06:05 12/23/17 12/23/17 12/23/17 15:20 15:20 20:26 Creatine Kinase 313 H 464 H CK-MB (CK-2) 4.34 Troponin I < 0.012 12/23/17 12/24/17 12/24/17 20:26 02:28 02:28 Creatine Kinase 770 H CK-MB (CK-2) 5.12 H 7.84 H Troponin I < 0.012 < 0.012 Impressions: Head CT 12/23/17 00:00 IMPRESSION: No significant interval change from the previous study. No acute intracranial abnormalities. Other findings as noted above. EVIDENCE OF ACUTE STROKE: NO. Chest X-Ray 12/23/17 13:04 IMPRESSION: 1. Right lower lobe pneumonia. 2. Ectasia of the ascending aorta. Assessment & Plan - Time Time Spent with patient: 15-24 minutes Medications reviewed and adjusted accordingly: Yes Anticipated discharge: Home with Homehealth Within: within 48 hours - Inpatient Certification Based on my medical assessment, after consideration of the patient's comorbidities, presenting symptoms, or acuity I expect that the services needed warrant INPATIENT care.: Yes Medical Necessity: Risk of Complication if Not Cared For in Hospital - Plan Summary Plan Summary: Acute encephalopathy multifactorial secondary to drug overdose as well as possible hypercapnic respiratory failure as well as alcohol. Patient's mental status is improving. Psych consult pending 2. Acute kidney injury resolved 3. Acute respiratory failure, hypercapnic and hypoxia on intermittent BiPAP use. 4. Right lower lobe pneumonia possibly aspiration. Will continue current antibiotics 5. Type 2 diabetes mellitus on sliding scale insulin 6. drug overdose likely accidental. Will await psych evaluation 7. History of hepatitis C currently being treated by GI 8. Continuous opiate dependence was started on some low-dose narcotics as patient is requesting pain control 9. Anemia hemoglobin is controlled and there is no evidence of acute blood loss. I also discussed with hematology lab and apparently the immature white blood cells as seen have been reviewed by the pathologist and this have been corrected to be of no consequence. 10. Respiratory acidosis likely multifactorial including pneumonia, drug overdose, will continue to monitor
[2017-12-27] MEDS: TRAMADOL HCL 50 MG TABLET PO PRN (16:53)
[2017-12-27] MEDS: INSULIN LISPRO 100 UNIT/ML 3 ML VIAL SUBCUT PRN (16:54)
[2017-12-27] MEDS: QUETIAPINE FUMARATE 100 MG TABLET PO SCH (21:09)
[2017-12-28] MEDS: IPRATROPIUM/ALBUTEROL 0.5-2.5 MG/3 ML AMPUL NEB SCH ×7 (00:42→23:52)
[2017-12-28] MEDS: LANSOPRAZOLE 30 MG TAB.RAP.DR PO SCH (05:21)
[2017-12-28] MEDS: GABAPENTIN 300 MG CAPSULE PO SCH ×3 (05:22→21:43)
[2017-12-28] MEDS: AMOXICILLIN TR/POT CLAVULANATE 500-125 MG TAB PO SCH ×3 (05:22→21:42)
[2017-12-28] MEDS: ACETAMINOPHEN 325 MG TABLET PO PRN (06:45)
[2017-12-28] MEDS: TRAMADOL HCL 50 MG TABLET PO PRN ×2 (08:16→16:16)
[2017-12-28] MEDS: NORMAL SALINE 1000 ML 1,000 ML with POTASSIUM CHLORIDE 20 MEQ, THIAMINE HCL 100 MG, MVI... IV SCH ×4 (08:17)
[2017-12-28] MEDS: CITALOPRAM HYDROBROMIDE 20 MG TABLET PO SCH (10:59)
[2017-12-28] MEDS: ARIPIPRAZOLE 5 MG TABLET PO SCH (10:59)
[2017-12-28] MEDS: BUSPIRONE HCL 10 MG TABLET PO SCH ×2 (10:59→21:43)
[2017-12-28] MEDS: MAGNESIUM OXIDE 400 MG TABLET PO SCH (10:59)
[2017-12-28] MEDS: ENOXAPARIN SODIUM INJ 30 MG/0.3 ML DISP.SYRIN SUBCUT SCH (11:00)
[2017-12-28] MEDS: POLYETHYLENE GLYCOL 3350 POWDER 17 GM/1 PACKET PO SCH (11:00)
[2017-12-28] MEDS: PREDNISONE 20 MG TABLET PO SCH (11:00)
[2017-12-28] MEDS: INSULIN LISPRO 100 UNIT/ML 3 ML VIAL SUBCUT PRN ×3 (12:15→22:40)
--- NOTE | 2017-12-28 14:34 | PDOC PROGRESS REPORT ---
Subjective Progress Note for:: 12/28/17 Subjective:: This patient was admitted with drug overdose. She was found to be encephalopathic as well as with acute respiratory failure. Patient has a history of opiate dependency on Vicodin as needed in appears she overdosed prior to admission. She also apparently ingested alcohol. Patient is awake and alert but still appears to be somewhat confused. She is requesting pain medicine complaining of pain in her knees. Reason For Visit: DRUG OVERDOSE Physical Exam Vital Signs: Temp Pulse Resp BP Pulse Ox 98.5 F 76 16 150/94 H 95 12/28/17 12:00 12/28/17 12:45 12/28/17 12:45 12/28/17 12:00 12/28/17 12:45 Intake & Output 12/27/17 12/28/17 12/29/17 06:59 06:59 06:59 Intake Total 2213 2860 354 Output Total 3300 552 Balance -1087 2308 354 Weight 78.4 kg 78.2 kg General appearance: PRESENT: no acute distress, well-developed, well-nourished Head exam: PRESENT: atraumatic, normocephalic Eye exam: PRESENT: conjunctiva pink, EOMI, PERRLA. ABSENT: scleral icterus Ear exam: PRESENT: normal external ear exam Mouth exam: PRESENT: moist, tongue midline Neck exam: ABSENT: carotid bruit, JVD, lymphadenopathy, thyromegaly Respiratory exam: PRESENT: clear to auscultation abiola. ABSENT: rales, rhonchi, wheezes Cardiovascular exam: PRESENT: RRR. ABSENT: diastolic murmur, rubs, systolic murmur Pulses: PRESENT: normal dorsalis pedis pul Vascular exam: PRESENT: normal capillary refill GI/Abdominal exam: PRESENT: normal bowel sounds, soft. ABSENT: distended, guarding, mass, organolmegaly, rebound, tenderness Rectal exam: PRESENT: deferred Extremities exam: PRESENT: full ROM. ABSENT: calf tenderness, clubbing, pedal edema Neurological exam: PRESENT: alert, awake, oriented to person, oriented to place , oriented to time, oriented to situation, CN II-XII grossly intact. ABSENT: motor sensory deficit Psychiatric exam: PRESENT: appropriate affect, normal mood. ABSENT: homicidal ideation, suicidal ideation Skin exam: PRESENT: dry, intact, warm. ABSENT: cyanosis, rash Results Laboratory Results: 12/26/17 06:05 12/26/17 06:05 12/23/17 12/23/17 12/23/17 15:20 15:20 20:26 Creatine Kinase 313 H 464 H CK-MB (CK-2) 4.34 Troponin I < 0.012 12/23/17 12/24/17 12/24/17 20:26 02:28 02:28 Creatine Kinase 770 H CK-MB (CK-2) 5.12 H 7.84 H Troponin I < 0.012 < 0.012 Impressions: Head CT 12/23/17 00:00 IMPRESSION: No significant interval change from the previous study. No acute intracranial abnormalities. Other findings as noted above. EVIDENCE OF ACUTE STROKE: NO. Chest X-Ray 12/23/17 13:04 IMPRESSION: 1. Right lower lobe pneumonia. 2. Ectasia of the ascending aorta. Assessment & Plan - Time Time Spent with patient: 15-24 minutes Medications reviewed and adjusted accordingly: Yes Anticipated discharge: Home Within: within 24 hours Disposition: 1. Acute encephalopathy multifactorial secondary to drug overdose as well as possible hypercapnic respiratory failure as well as alcohol. Patient's mental status is at baseline 2. Acute kidney injury resolved 3. Acute respiratory failure, hypercapnic and hypoxia on intermittent BiPAP use. 4. Right lower lobe pneumonia possibly aspiration. Will continue current antibiotics 5. Type 2 diabetes mellitus on sliding scale insulin 6. drug overdose likely accidental. No suicidal ideation 7. History of hepatitis C currently being treated by GI 8. Continuous opiate dependence Continue low-dose narcotics 9. Anemia hemoglobin is controlled and there is no evidence of acute blood loss. The immature white blood cells as seen have been reviewed by the pathologist and this have been corrected to be of no consequence. Likely home in am, declining Rehab
--- NOTE | 2017-12-28 15:04 | PSYCHOLOGICAL NOTE ---
Psych Note - Psych Note Psych Note: Reason for consult: Altered mental status Patient is a 57-year-old female with past medical history as recorded who presents by EMS secondary to a neighbor noticing that the patient "was not acting right". Patient disclosed that she is not sure what happened that brought her to [facility] however remembers drinking "a little." Patient denies misusing any medications stating, "I don't know what happened." She continued to report that she had been sober for approximately 3 months; however, the night she arrived to [facility] was a relapse. Patient is able to correctly identify the current month and year and openly discusses some loss that she has had in the past (conversation topic came up because December is the anniversary month her "many years ago"). She confirms while this makes her sad she denies her grief makes her want to hurt herself. Patient reported she lives alone but her sister lives about [address] Patient states she has no concerns and thinks clinician for coming to speak with her. Patient is alert and orientated to person, place, time and circumstance. Patient is very pleasant and openly engages with clinician. Mood is euthymic with congruent affect as evidenced by smiling. Patient denies suicidal or homicidal ideations. Delusions are absent behaviors congruent with intact reality based presentation i.e. organized and linear thought process. Eye contact was well-maintained. Conversational speech was within normal rate, tone and prosody. Intellectual abilities appear to be within the average range. Attention and concentration were good. Insight, judgment, impulse control are poor due to substance abuse; alcohol. Collateral obtained by attending physician upon original admittance to [facility] ED I was able to call the patient's sister, at [phone]. She states that she talk to the neighbor and also thought that there was possibly some blue pills. She states that the patient does not have any slurred speech, weakness or numbness from any previous stroke. She does not remember the patient being admitted any time in the last month. She states that the patient does have a history of depression with an overdose in the past. Clinician attempted to contact patient's sister; left message. No medication recommendations at this time 291.9 (F10.99) unspecified alcohol related disorder; recent relapse 292.9 (F11.99) unspecified opiate related disorder Impression\\plan: Patient is recommended for rescind of IVC and is considered cleared from acute psychiatric services. Patient no longer meets IVC criteria per [place] GS 122C. Patient is no longer in psychosis is alert and orientated and denies suicidal homicidal ideation. Patient reports relapse with alcohol denies misuse of her opiates. Patient is recommended for substance abuse treatment that includes both alcohol and opiates. Dr. Rosa was consulted and the care and management this patient.
[2017-12-28] MEDS: QUETIAPINE FUMARATE 100 MG TABLET PO SCH (21:43)
[2017-12-29] MEDS: IPRATROPIUM/ALBUTEROL 0.5-2.5 MG/3 ML AMPUL NEB SCH ×2 (04:18→08:04)
[2017-12-29] MEDS: AMOXICILLIN TR/POT CLAVULANATE 500-125 MG TAB PO SCH (05:17)
[2017-12-29] MEDS: GABAPENTIN 300 MG CAPSULE PO SCH (05:17)
[2017-12-29] MEDS: LANSOPRAZOLE 30 MG TAB.RAP.DR PO SCH (05:17)
[2017-12-29] MEDS: NORMAL SALINE 1000 ML 1,000 ML with POTASSIUM CHLORIDE 20 MEQ, THIAMINE HCL 100 MG, MVI... IV SCH ×4 (08:00)
[2017-12-29] MEDS: ACETAMINOPHEN 325 MG TABLET PO PRN (08:01)
[2017-12-29] MEDS: ENOXAPARIN SODIUM INJ 30 MG/0.3 ML DISP.SYRIN SUBCUT SCH (09:31)
[2017-12-29] MEDS: POLYETHYLENE GLYCOL 3350 POWDER 17 GM/1 PACKET PO SCH (09:39)
[2017-12-29] MEDS: ARIPIPRAZOLE 5 MG TABLET PO SCH (09:39)
[2017-12-29] MEDS: BUSPIRONE HCL 10 MG TABLET PO SCH (09:40)
[2017-12-29] MEDS: MAGNESIUM OXIDE 400 MG TABLET PO SCH (09:40)
[2017-12-29] MEDS: CITALOPRAM HYDROBROMIDE 20 MG TABLET PO SCH (09:40)
--- NOTE | 2017-12-29 10:41 | PDOC DISCHARGE SUMMARY ---
General - Admit/Disc Date/PCP Admission Date/Primary Care Provider: 12/23/17 15:16 DARREN MORFIN MD Discharge Date: 12/30/17 - Discharge Diagnosis (1) Acute encephalopathy Is this a current diagnosis for this admission?: Yes (2) Acute renal failure Is this a current diagnosis for this admission?: Yes (3) Acute respiratory failure Is this a current diagnosis for this admission?: Yes Summary: Hypoxemic (4) Bacterial pneumonia Is this a current diagnosis for this admission?: Yes (5) Drug overdose, intentional Is this a current diagnosis for this admission?: Yes (6) History of alcohol abuse Is this a current diagnosis for this admission?: Yes (7) Hyperkalemia Is this a current diagnosis for this admission?: Yes (8) Tardive dyskinesia Is this a current diagnosis for this admission?: Yes (9) Anemia Is this a current diagnosis for this admission?: Yes (10) COPD exacerbation Is this a current diagnosis for this admission?: Yes (11) Hyponatremia Is this a current diagnosis for this admission?: Yes - Additional Information Resuscitation Status: Full Code Discharge Diet: Cardiac Discharge Activity: Activity As Tolerated, Other - Avoid ETOH, Prescriptions: Amox Tr/Potassium Clavulanate [Augmentin "500" Tablet] 1 tab PO Q8 #14 tablet Mv-Min/Folic/Vit K/Lycop/Coq10 [Daily Multivitamin Capsule] 1 each PO DAILY #30 capsule Home Medications: Albuterol Sulfate [Ventolin HFA MDI 18 GM] 2 puff IH Q4 12/23/17 Alprazolam [Xanax] 1 mg PO Q12HP PRN 12/23/17 Amlodipine Besylate [Norvasc 10 mg Tablet] 10 mg PO DAILY 12/23/17 Aripiprazole [Abilify 10 mg Tablet] 10 mg PO DAILY 12/23/17 Buspirone HCl [Buspar 15 mg Tablet] 7.5 mg PO Q12 12/23/17 Citalopram Hydrobromide [Citalopram HBr] 30 mg PO DAILY 12/23/17 Dextroamphetamine/Amphetamine [Adderall 10 mg Tablet] 10 mg PO Q8 12/23/17 Gabapentin [Neurontin 300 mg Capsule] 300 mg PO Q8 12/23/17 Glycopyrrolate [Robinul Forte] 2 mg PO BIDP PRN 12/23/17 Hydrocodone/Ibuprofen [Hydrocodone-Ibuprofen 7.5-200] 1 tab PO Q8HP PRN Lisinopril [Prinivil 10 mg Tablet] 10 mg PO DAILY 12/23/17 Magnesium Oxide [Mag-Ox 400 mg Tablet] 400 mg PO DAILY 12/23/17 Meloxicam [Mobic] 7.5 mg PO Q12HP PRN 12/23/17 Metformin HCl [Glucophage] 1,000 mg PO BID 12/23/17 Omeprazole 40 mg PO DAILY 12/23/17 Polyethylene Glycol 3350 [Miralax Powder 17 gm/Packet] 17 gm PO DAILY 12/23/17 Quetiapine Fumarate [Seroquel] 600 mg PO QHS 12/23/17 Umeclidinium Brm/Vilanterol Tr [Anoro Ellipta 62.5-25 Mcg INH] 1 puff IH DAILY 12/23/17 Amox Tr/Potassium Clavulanate [Augmentin "500" Tablet] 1 tab PO Q8 #14 tablet 12/29/17 Mv-Min/Folic/Vit K/Lycop/Coq10 [Daily Multivitamin Capsule] 1 each PO DAILY #30 capsule 12/29/17 History of Present Illness Patient complains of: Confusion, altered mental status History of Present Illness: VENECIA GARNICA is a 57 year old female who was brought to the hospital with altered mental status. Her past medical history is significant for alcohol abuse and hepatitis C for which she reportedly is received treatment. She also has a history of depression with a drug overdose in the past. In addition she has COPD and hyperlipidemia. In the emergency room she was found to be quite altered. Initial labs revealed a creatinine up to. Her baseline is below 1. Family reports that they found blue pills in the bed with the patient. She was given a dose of Narcan and woke up. She states that she drank 3-4 beers and took 4 Vicodin. Family members also found an empty bottle of Adderall by the bedside but she denies this. The patient is still quite altered. She contradicts herself and it is difficult to get a good review of systems. Also the patient had acute respiratory failure at the time of admission. She was placed on oxygen. Initial blood gas revealed a pH of 7.2, PCO2 of 50.7, PO2 of 48 and bicarbonate of 19.4. The patient's hands are quite cold but at the time of my visit her oxygen saturations are ranging anywhere from the low 70s to upper 80s. Hospital Course Hospital Course: Patient was admitted with an altered mental status thought to be secondary to alcohol ingestion and accidental drug overdose. Patient does have a prior history of alcohol abuse and she apparently had been sober for about 3 months but needed to drinking about 3-4 beers and taken for Vicodin. She has a history of opiate abuse. She was initially acidotic and hypoxemic as well on initial presentation. Acute respiratory failure was thought to be due to narcotic drug overdose as well as COPD exacerbation. She was placed on BiPAP and admitted to the ICU for close monitoring. She was also hypo-tensive and this responded to fluid boluses. Patient's encephalopathy is slowly cleared and she appears to be back to her baseline mental status at this time. She is noted to have involuntary movement of her facial muscles likely tardive dyskinesia although precise etiology is unknown. She was evaluated by psychiatry and behavioral team. She was initially involuntaryly committed but this has since been rescinded after reevaluation by psychiatry. Substance abuse treatment that includes both alcohol and opiates is highly recommended. Patient was treated for aspiration pneumonia and her kidney function is reverted back to normal as she had acute renal failure on presentation. At this time with dynamic stability and resolution of presenting symptoms patient is been discharged home for outpatient follow-up as advised. Physical Exam Vital Signs: Temp Pulse Resp BP Pulse Ox 98.4 F 76 16 154/74 H 94 12/29/17 07:35 12/29/17 08:00 12/29/17 08:00 12/29/17 07:35 12/29/17 08:00 Intake & Output 12/28/17 12/29/17 12/30/17 06:59 06:59 06:59 Intake Total 2860 2898 Output Total 552 Balance 2308 2898 Weight 78.2 kg 75.5 kg General appearance: PRESENT: no acute distress, well-developed, well-nourished Head exam: PRESENT: atraumatic, normocephalic Eye exam: PRESENT: conjunctiva pink, EOMI, PERRLA. ABSENT: scleral icterus Ear exam: PRESENT: normal external ear exam Mouth exam: PRESENT: moist, tongue midline Neck exam: ABSENT: carotid bruit, JVD, lymphadenopathy, thyromegaly Respiratory exam: PRESENT: clear to auscultation abiola. ABSENT: rales, rhonchi, wheezes Cardiovascular exam: PRESENT: RRR. ABSENT: diastolic murmur, rubs, systolic murmur Pulses: PRESENT: normal dorsalis pedis pul Vascular exam: PRESENT: normal capillary refill GI/Abdominal exam: PRESENT: normal bowel sounds, soft. ABSENT: distended, guarding, mass, organolmegaly, rebound, tenderness Rectal exam: PRESENT: deferred Extremities exam: PRESENT: full ROM. ABSENT: calf tenderness, clubbing, pedal edema Musculoskeletal exam: PRESENT: other - involuntary facial movement Neurological exam: PRESENT: alert, awake, oriented to person, oriented to place , oriented to time, oriented to situation, CN II-XII grossly intact. ABSENT: motor sensory deficit Psychiatric exam: PRESENT: appropriate affect, normal mood. ABSENT: homicidal ideation, suicidal ideation Skin exam: PRESENT: dry, intact, warm. ABSENT: cyanosis, rash Results Laboratory Results: 12/26/17 06:05 12/26/17 06:05 12/23/17 12/23/17 12/23/17 15:20 15:20 20:26 Creatine Kinase 313 H 464 H CK-MB (CK-2) 4.34 Troponin I < 0.012 12/23/17 12/24/17 12/24/17 20:26 02:28 02:28 Creatine Kinase 770 H CK-MB (CK-2) 5.12 H 7.84 H Troponin I < 0.012 < 0.012 Impressions: Head CT 12/23/17 00:00 IMPRESSION: No significant interval change from the previous study. No acute intracranial abnormalities. Other findings as noted above. EVIDENCE OF ACUTE STROKE: NO. Chest X-Ray 12/23/17 13:04 IMPRESSION: 1. Right lower lobe pneumonia. 2. Ectasia of the ascending aorta. Qualifiers - * PATIENT BEING DISCHARGED WITH ANY OF THE FOLLOWING DIAGNOSIS: No Plan Time Spent: Greater than 30 Minutes
[2017-12-29] MEDS: TRAMADOL HCL 50 MG TABLET PO PRN (11:09)
[2017-12-29 11:16] VITALS: BP 150/94
== END 2017-12-29 12:10 | disposition home health service (06) | DRG 917 ==
LOC: ER 10:28 → EH 15:16 → ICU 18:58 → 3W 12-24 15:01
PROVIDERS: ADMIT Physician Assistant; ATTEND Physician Assistant
PROC: 5A09457 Assistance with Respiratory Ventilation, 24-96 Consecutive Hours, Continuous Positive Airway Pressure (ICD-10-PCS; principal; 2017-12-23)
PROC: 3E0F73Z Introduction of Anti-inflammatory into Respiratory Tract, Via Natural or Artificial Opening (ICD-10-PCS; 2017-12-23)
DX: T40.2X2A Poisoning by other opioids, intentional self-harm, initial encounter (principal); J96.01 Acute respiratory failure with hypoxia; J15.9 Unspecified bacterial pneumonia; G92 Toxic encephalopathy; J96.02 Acute respiratory failure with hypercapnia; N17.9 Acute kidney failure, unspecified; J44.1 Chronic obstructive pulmonary disease with (acute) exacerbation; E87.1 Hypo-osmolality and hyponatremia; F32.2 Major depressive disorder, single episode, severe without psychotic features; Z78.1 Physical restraint status; Y92.009 Unspecified place in unspecified non-institutional (private) residence as the place of occurrence of the external cause; E87.5 Hyperkalemia; G24.01 Drug induced subacute dyskinesia; D64.9 Anemia, unspecified; J44.9 Chronic obstructive pulmonary disease, unspecified; E78.00 Pure hypercholesterolemia, unspecified; I95.9 Hypotension, unspecified; E11.9 Type 2 diabetes mellitus without complications; M19.90 Unspecified osteoarthritis, unspecified site; M79.7 Fibromyalgia; F43.10 Post-traumatic stress disorder, unspecified; K21.9 Gastro-esophageal reflux disease without esophagitis; B18.2 Chronic viral hepatitis C; I77.819 Aortic ectasia, unspecified site; I10 Essential (primary) hypertension; Z60.2 Problems related to living alone; Z79.899 Other long term (current) drug therapy; Z90.49 Acquired absence of other specified parts of digestive tract; Z86.14 Personal history of Methicillin resistant Staphylococcus aureus infection; Z96.652 Presence of left artificial knee joint; Z90.01 Acquired absence of eye; Z82.61 Family history of arthritis; Z82.49 Family history of ischemic heart disease and other diseases of the circulatory system; Z80.9 Family history of malignant neoplasm, unspecified; Z83.49 Family history of other endocrine, nutritional and metabolic diseases
CPT/HCPCS: 36415; 51701; 70450; 71045; 80048; 80053; 80076; 80307; 81001; 82140; 82272; 82550; 82553; 82607; 82728; 82746; 82803; 82962; 83036; 83540; 83550; 83605; 83735; 84100; 84484; 85025; 85045; 85610; 86850; 86900; 86901; 87040; 87086; 93005; 93010; 94640; 94660; 96361; 96374; 99285; G8978-GP; G8979-GP; G8987-GO; G8988-GO; G8989-GO; G8996-GN; G8997-GN; G8998-GN; J0295; J1630; J1650; J1815; J2060; J2310; J2920; J3411; J3475; J3480; J3490; J7030; J7512; J7620

== ENCOUNTER 2018-01-08 14:19 | Inpatient (IN) | payer MEDICARE, MEDICAID ==
[2018-01-08] MEDS ORDERED: NORMAL SALINE 1000 ML 1,000 ML IV ONE ×3 (14:29→15:58)
[2018-01-08] MEDS ORDERED: NALOXONE HCL INJ 2 MG/2 ML DISP.SYRIN IV ONE (14:30)
--- NOTE | 2018-01-08 14:33 | ER Document Report ---
ED General - General Chief Complaint: Altered Mental Status Stated Complaint: BLOOD PRESSURE PROBLEMS Time Seen by Provider: 01/08/18 14:28 Notes: The patient is a 57-year-old female, past medical history prior drug and alcohol abuse, hypertension, presents after her family found her slumped over earlier today. She was discharged from the hospital yesterday after an apparent opioid polysubstance overdose. She was last seen normal last night when she left the hospital. Patient's blood pressure is 70s over 50s she is somnolent. She is only mumbling some words. Unable to provide any additional history. TRAVEL OUTSIDE OF THE [place] IN LAST 30 DAYS: No - Related Data Allergies/Adverse Reactions: No Known Allergies Allergy (Verified 12/23/17 10:38) Past Medical History - General Information source: Patient, Emergency Med Personnel Cannot obtain history due to: Altered mental status - Social History Smoking Status: Unknown if Ever Smoked Family History: Reviewed & Not Pertinent, Arthritis, CAD, Hyperlipidemia, Hypertension, Malignancy, Thyroid Disfunction - Past Medical History Cardiac Medical History: Reports: Hx Hypercholesterolemia, Hx Hypertension - meds x 15 years Pulmonary Medical History: Reports: Hx COPD Neurological Medical History: Denies: Hx Cerebrovascular Accident Endocrine Medical History: Reports: Hx Diabetes Mellitus Type 2 Renal/ Medical History: Reports: Hx Ovarian Cysts - denies surgery. Denies: Hx End Stage Renal Disease, Hx Peritoneal Dialysis GI Medical History: Reports: Hx Diverticulitis - Status post partial colectomy with reversal of colostomy, Hx Gastroesophageal Reflux Disease - meds x 8 years , Hx Hepatitis - Hepatitis C which she states has been totally treated and she does not have, Hx Liver Failure - Hep C, Dx'ed 2010, Hx Ulcer - gastic Musculoskeltal Medical History: Reports Hx Arthritis, Reports Hx Fibromyalgia, Reports Hx Musculoskeletal Deformity, Reports Hx Musculoskeletal Trauma Skin Medical History: Reports Hx MRSA Psychiatric Medical History: Reports: Hx Anxiety, Hx Depression - meds x 8 years , Hx Post Traumatic Stress Disorder - refused to explain Hx, "too painful" Traumatic Medical History: Reports: Hx Fractures - RT foot, ORIF, 2013, [place] Infectious Medical History: Reports: Hx Hepatitis - Hepatitis C which she states has been totally treated and she does not have Past Surgical History: Reports: Hx Abdominal Surgery - Partial colectomy for bowel obstruction, Hx Bowel Surgery - exp lap, colon resection 2011, MRSA, Hx Colostomy - Which is since been reversed, Hx Herniorrhaphy - ? ventral, Hx Orthopedic Surgery - Left TKR, Hx Umbilical Hernia - Immunizations Immunizations up to date: No Hx Diphtheria, Pertussis, Tetanus Vaccination: Yes Review of Systems - Review of Systems -: Yes ROS unobtainable due to patient's medical condition Neurological/Psychological: Confusion Physical Exam - Vital signs Vitals: Resp Pulse Ox 11 L 98 01/08/18 14:31 01/08/18 14:31 - Notes Notes: PHYSICAL EXAMINATION: GENERAL: Somnolent. Will awake to voice and then quickly fall asleep. HEAD: Atraumatic, normocephalic. EYES: Left eye drainage, glassy left eye and non-reactive pupil. Reactive right pupil. ENT: nares patent, oropharynx clear without exudates. Moist mucous membranes. NECK: Normal range of motion, supple without lymphadenopathy LUNGS: Shallow respirations, lungs are clear. HEART: Regular rate and rhythm without murmurs ABDOMEN: Soft, nontender, normoactive bowel sounds. No guarding, no rebound. No masses appreciated. EXTREMITIES: Normal range of motion, no pitting or edema. No cyanosis. NEUROLOGICAL: Moving all 4 extremities, sensation intact. Slurred speech. SKIN: Warm, Dry, normal turgor, no rashes or lesions noted. Course - Re-evaluation Re-evalutation: Patient arrives somnolent and hypotensive. She is initially satting 85% on room air when EMS arrived. Patient was given 2 mg of Narcan and woke up. Her blood pressure improved. Patient does have [place] with quadrupling of her creatinine compared to her last value 12 days ago. Pt has her medications at bedside. She had 30 days of Xanax filled on 01/02/18 and the bottle is empty. She said that she took them all and she appears to be a benzodiazepine overdose. She is protecting her airway and does not require intubation at this time. She was prescribed 90 tabs of Gordon by another prescribed on 12/19/17. This bottle is not in the ER. Patient is asking if I am going to be prescribing her any more Xanax. Due to her altered mental status, initial hypotension and D[place], she requires admission for further monitoring and treatment. 01/08/18 16:[address] Diaz and will admit patient to Tele as Inpatient. - Vital Signs Vital signs: Temp Pulse Resp BP Pulse Ox 97.6 F 93 20 142/88 H 95 01/08/18 19:39 01/08/18 20:01 01/08/18 19:39 01/08/18 19:39 01/08/18 19:39 - Laboratory Result Diagrams: 01/08/18 14:45 01/08/18 16:00 Laboratory results interpreted by me: 01/08/18 01/08/18 01/08/18 14:45 14:45 14:53 RBC 3.08 L Hgb 9.4 L Hct 27.5 L RDW 14.5 H Chloride Carbon Dioxide BUN 39 H Creatinine 4.28 H Est GFR ( Amer) 13 L Est GFR (Non-Af Amer) 11 L POC Glucose 117 H Calcium Direct Bilirubin 1.0 H AST 116 H ALT 54 H Total Protein 5.8 L Albumin 3.1 L Urine Protein Urine Blood Salicylates < 1.0 L Acetaminophen < 10 L 01/08/18 01/08/18 15:27 16:00 RBC Hgb Hct RDW Chloride 108 H Carbon Dioxide 19 L BUN 36 H Creatinine 3.76 H Est GFR ( Amer) 15 L Est GFR (Non-Af Amer) 12 L POC Glucose Calcium 7.8 L Direct Bilirubin 0.9 H AST 113 H ALT Total Protein 5.3 L Albumin 2.7 L Urine Protein 30 H Urine Blood MODERATE H Salicylates Acetaminophen - Diagnostic Test Radiology reviewed: Image reviewed, Reports reviewed Radiology results interpreted by me: CT Head: NAD CXR: NAD - EKG Interpretation by Me EKG shows normal: Sinus rhythm, [place], Intervals, QRS Complexes, ST-T Waves Rate: Normal Discharge - Discharge Clinical Impression: D[place]AS (acute kidney injury) Altered mental status Qualifiers: Altered mental status type: unspecified Qualified Code(s): R41.82 - Altered mental status, unspecified Overdose Qualifiers: Encounter type: subsequent encounter Injury intent: undetermined intent Qualified Code(s): T50.904D - Poisoning by unspecified drugs, medicaments and biological substances, undetermined, subsequent encounter Condition: Stable Disposition: ADMITTED INPATIENT Admitting Provider: Hospitalist - [facility] Admitted: Telemetry
--- NOTE | 2018-01-08 14:59 | RADIOLOGY REPORT (SQ) ---
EXAM DESCRIPTION: CT HEAD WITHOUT COMPLETED DATE/TIME: 01/08/2018 2:41 pm REASON FOR STUDY: AMS COMPARISON: 2014. 08/17/2017. 12/23/2017. TECHNIQUE: Axial images acquired through the brain without intravenous contrast. Images reviewed wi th bone, brain and subdural windows. Additional sagittal and coronal reconstructions were generated. Images stored on PACS. All CT scanners at this facility use dose modulation, iterative reconstruction, and/or weight based d osing when appropriate to reduce radiation dose to as low as reasonably achievable (ALARA). [facility]: Dose Right [facility]: CareDose [facility]: Dose Right [facility]: Teradose 4D [facility]: [employer] RADIATION DOSE: CT Rad equipment meets quality standard of care and radiation dose reduction techniq ues were employed. CTDIvol: 53.2 mGy. DLP: 1070 mGy-cm. mGy. LIMITATIONS: None. FINDINGS: VENTRICLES: Chronic mild 3rd and lateral ventricular prominence, nonprogressive. CEREBRUM: No masses. No hemorrhage. No midline shift. No evidence for acute infarction. Normal gra y/white matter differentiation. No areas of low density in the white matter. CEREBELLUM: No masses. No hemorrhage. No alteration of density. No evidence for acute infarction. EXTRAAXIAL SPACES: No fluid collections. No masses. ORBITS AND GLOBE: Chronic diminutive appearance of the left globe. CALVARIUM: No fracture. PARANASAL SINUSES: No fluid or mucosal thickening. SOFT TISSUES: No mass or hematoma. OTHER: No other significant finding. IMPRESSION: No acute or suspicious intracranial abnormality. Stable exam. Pertinent positive or negative findings of the imaging study reported as a CRITICAL EXAM to VERONIKA AGUILERA MD at14:53 on 01/08/2018. Category of Critical Exam: Stroke alert EVIDENCE OF ACUTE STROKE: NO. COMMENT: Quality ID # [id number]: Final reports with documentation of one or more dose reduction techniques (e.g., Automated exposure control, adjustment of the mA and/or kV according to patient size, use of iterative reconstruction technique) TECHNICAL DOCUMENTATION: JOB ID: [id number] [employer]- All Rights Reserved Reading location - IP/workstation name: [email or web address]
[2018-01-08 15:00] LABS: VENOUS BLOOD BASE EXCESS -5.1 mmol/L; VENOUS BLOOD HCO3 21.1 mmol/L (20-32); VENOUS BLOOD PCO2 43.8 mmHg (35-63); VENOUS BLOOD PH 7.3 (7.30-7.42)
[2018-01-08 15:02] LABS: ABSOLUTE EOSINOPHILS # (AUTO) 0.1 10^3/uL (0.0-0.6); ABSOLUTE LYMPHOCYTES (AUTO) 1.4 10^3/uL (0.5-4.7); ABSOLUTE MONOCYTES (AUTO) 0.7 10^3/uL (0.1-1.4); ABSOLUTE NEUT (AUTO) 3.6 10^3/uL (1.7-8.2); BASOPHILS % (AUTO) 0.5 % (0-2); EOSINOPHILS % (AUTO) 1.2 % (0-6); HEMATOCRIT 27.5 % (36.0-47.0); HEMOGLOBIN 9.4 g/dL (12.0-15.5); LYMPHOCYTES % (AUTO) 23.5 % (13-45); MEAN CORPUSCULAR HEMOGLOBIN 30.5 pg (27.0-33.4); MEAN CORPUSCULAR HGB CONC 34.1 g/dL (32.0-36.0); MEAN CORPUSCULAR VOLUME 89 fl (80-97); PLATELET COUNT 206 10^3/uL (150-450); RED BLOOD COUNT 3.08 10^6/uL (3.72-5.28); RED CELL DISTRIBUTION WIDTH 14.5 % (11.5-14.0); SEGMENTED NEUTROPHILS % (AUTO) 62.8 % (42-78); TOTAL CELLS COUNTED % (AUTO) 100 %; WHITE BLOOD COUNT 5.8 10^3/uL (4.0-10.5)
[2018-01-08 15:13] LABS: INTERNATIONAL RATION (INR) 1.14; PROTHROMBIN TIME 15.2 SEC (11.4-15.4)
[2018-01-08 15:19] LABS: ALANINE AMINOTRANSFERASE 54 U/L (9-52); ALBUMIN 3.1 g/dL (3.5-5.0); ALKALINE PHOSPHATASE 60 U/L (38-126); ANION GAP 12 (5-19); ASPARTATE AMINO TRANSFERASE 116 U/L (14-36); BLOOD UREA NITROGEN 39 mg/dL (7-20); CALCIUM 8.6 mg/dL (8.4-10.2); CARBON DIOXIDE 23 mmol/L (22-30); CHLORIDE 105 mmol/L (98-107); GLUCOSE 109 mg/dL (75-110); POTASSIUM 4.3 mmol/L (3.6-5.0); SODIUM 140.3 mmol/L (137-145); TOTAL PROTEIN 5.8 g/dL (6.3-8.2)
[2018-01-08 15:20] LABS: ACETAMINOPHEN < 10 ug/mL (10-30); ALCOHOL < 10 mg/dL (NONE DETECTED); SALICYLATE < 1.0 mg/dL (2.0-20.0)
[2018-01-08 15:50] LABS: AMORPHOUS SEDIMENT,URINE TRACE /HPF; APPEARANCE,URINE CLOUDY; BILIRUBIN,URINE NEGATIVE (NEGATIVE); COLOR,URINE YELLOW; GLUCOSE, URINE NEGATIVE (NEGATIVE); KETONES,URINE NEGATIVE (NEGATIVE); LEUKOCYTE ESTERASE,URINE NEGATIVE (NEGATIVE); NITRITE,URINE NEGATIVE (NEGATIVE); PROTEIN,URINE 30 mg/dL (NEGATIVE); URINE SPECIFIC GRAVITY 1.019; UROBILINOGEN,URINE NEGATIVE mg/dL (<2.0)
[2018-01-08 15:59] LABS: URINE BARBITURATES SCREEN NEGATIVE; URINE BENZODIAZEPINES SCREEN UNCONFIRMED POSITIVE; URINE COCAINE SCREEN NEGATIVE; URINE MARIJUANA (THC) SCREEN NEGATIVE; URINE METHADONE SCREEN NEGATIVE; URINE PHENCYCLIDINE SCREEN NEGATIVE
--- NOTE | 2018-01-08 16:05 | RADIOLOGY REPORT (SQ) ---
EXAM DESCRIPTION: CHEST SINGLE VIEW COMPLETED DATE/TIME: 01/08/2018 3:23 pm REASON FOR STUDY: SOB COMPARISON: 12/23/2017 FINDINGS: AP portable upright single view chest timed approximately 1520 hours. Persistent right basilar opacity, airspace disease/volume loss with slightly worse aeration compared to prior. There may be a component of minimal pleural fluid as well. No pneumothorax. Left lung re chago clear. IMPRESSION: Slight worsening right basilar aeration as above. Suspicious for unresolved/progressive pneumonia. TECHNICAL DOCUMENTATION: JOB ID: [id number] Reading location - IP/workstation name: [email or web address]
[2018-01-08] MEDS ORDERED: IPRATROPIUM/ALBUTEROL 0.5-2.5 MG/3 ML AMPUL NEB PRN (16:49)
[2018-01-08] MEDS ORDERED: ONDANSETRON HCL INJ/PF 4 MG/2 ML SDV IV PRN (16:49)
[2018-01-08 16:50] LABS: ALANINE AMINOTRANSFERASE 49 U/L (9-52); ALBUMIN 2.7 g/dL (3.5-5.0); ALKALINE PHOSPHATASE 59 U/L (38-126); ANION GAP 14 (5-19); ASPARTATE AMINO TRANSFERASE 113 U/L (14-36); BLOOD UREA NITROGEN 36 mg/dL (7-20); CALCIUM 7.8 mg/dL (8.4-10.2); CARBON DIOXIDE 19 mmol/L (22-30); CHLORIDE 108 mmol/L (98-107); GLUCOSE 93 mg/dL (75-110); POTASSIUM 4.1 mmol/L (3.6-5.0); SODIUM 140.8 mmol/L (137-145); TOTAL PROTEIN 5.3 g/dL (6.3-8.2)
[2018-01-08 17:07] LABS: BILIRUBIN,TOTAL 0.8 mg/dL (0.2-1.3)
--- NOTE | 2018-01-08 17:14 | PDOC H&P ---
History of Present Illness Admission Date/PCP: 01/08/18 16:25 NERI MELO DPM Patient complains of: Drug overdose, change in mental status and confusion History of Present Illness: EVNECIA GARNICA is a 57 year old female This 57-year-old female presents to the emergency room with apparent overdose. She was just discharged by me less than 2 weeks ago with the same diagnosis and she presents back today after family found her slumped over earlier today. Patient himself is unable to provide any history although she is awake and alert and able to communicate however her speech is pretty slurred and that she is unable to provide a concise history. Reviewing the chart it appears that she was last seen normal last night. She has a history of alcohol abuse however she told me that she has not been drinking since she left the hospital. The does say that she used Xanax that have been prescribed for her and review of the ED physician notes states that she had 30 days of Xanax filled on January 02 and the bladder is currently empty. It is unclear how many pills of Xanax there were as this was not prescribed by me. She was also prescribed 90 tabs of Percocet on December 19 and the bottle is currently missing. Patient was initially hypotensive in the emergency room when he looks actually did respond to fluid bolus. She was also given some naloxone and it appears her mental status improved. Although her drug screen is positive for benzodiazepines she did not receive any flumazenil. EKG shows a sinus rhythm with nonspecific ST-T wave changes. Aside from the AK I have electrolytes actually pretty unremarkable she is noted to be anemic however hemoglobin is normal at the file from a baseline of about 9.5 and her PCO2 was 43.8 with a pH of 7.3. Also although patient was hypotensive on initial arrival to the emergency room she did respond nicely to IV fluids and has no respiratory compromise at this time plan to admit her to the stepdown unit for close monitoring and observation. Past Medical History Cardiac Medical History: Reports: Hyperlipidema, Hypertension - meds x 15 years Pulmonary Medical History: Reports: Chronic Obstructive Pulmonary Disease (COPD) EENT Medical History: Reports: Eyes - Glassy, non reactive eye Endocrine Medical History: Reports: Diabetes Mellitus Type 2 Renal/ Medical History: Denies: End Stage Renal Disease GI Medical History: Reports: Diverticulitis - Status post partial colectomy with reversal of colostomy, Gastroesophageal Reflux Disease - meds x 8 years, Hepatitis - Hepatitis C which she states has been totally treated and she does not have Musculoskeltal Medical History: Reports: Arthritis, Fibromyalgia Psychiatric Medical History: Reports: Alcohol Dependency, Depression - meds x 8 years, Post Traumatic Stress Disorder - refused to explain Hx, "too painful", Substance Abuse Hematology: Reports: Anemia - with pregnancies only Denies: Hemophilia, Sickle Cell Disease Past Surgical History Past Surgical History: Reports: Colostomy - Which is since been reversed, Herniorrhaphy - ? ventral, Orthopedic Surgery - Left TKR Denies: Amputation Social History Smoking Status: Unknown if Ever Smoked Frequency of Alcohol Use: None Hx Recreational Drug Use: No Drugs: None Hx Prescription Drug Abuse: No - unknown - Advance Directive Resuscitation Status: Full Code Family History Family History: Reviewed & Not Pertinent, Arthritis, CAD, Hyperlipidemia, Hypertension, Malignancy, Thyroid Disfunction Parental Family History Reviewed: No Children Family History Reviewed: No Sibling(s) Family History Reviewed.: No Medication/Allergy Home Medications: Albuterol Sulfate [Ventolin HFA MDI 18 GM] 2 puff IH Q4 12/23/17 Alprazolam [Xanax] 1 mg PO Q12HP PRN 12/23/17 Amlodipine Besylate [Norvasc 10 mg Tablet] 10 mg PO DAILY 12/23/17 Aripiprazole [Abilify 10 mg Tablet] 10 mg PO DAILY 12/23/17 Buspirone HCl [Buspar 15 mg Tablet] 7.5 mg PO Q12 12/23/17 Citalopram Hydrobromide [Citalopram HBr] 30 mg PO DAILY 12/23/17 Dextroamphetamine/Amphetamine [Adderall 10 mg Tablet] 10 mg PO Q8 12/23/17 Gabapentin [Neurontin 300 mg Capsule] 300 mg PO Q8 12/23/17 Glycopyrrolate [Robinul Forte] 2 mg PO BIDP PRN 12/23/17 Hydrocodone/Ibuprofen [Hydrocodone-Ibuprofen 7.5-200] 1 tab PO Q8HP PRN Lisinopril [Prinivil 10 mg Tablet] 10 mg PO DAILY 12/23/17 Magnesium Oxide [Mag-Ox 400 mg Tablet] 400 mg PO DAILY 12/23/17 Meloxicam [Mobic] 7.5 mg PO Q12HP PRN 12/23/17 Metformin HCl [Glucophage] 1,000 mg PO BID 12/23/17 Omeprazole 40 mg PO DAILY 12/23/17 Polyethylene Glycol 3350 [Miralax Powder 17 gm/Packet] 17 gm PO DAILY 12/23/17 Quetiapine Fumarate [Seroquel] 600 mg PO QHS 12/23/17 Umeclidinium Brm/Vilanterol Tr [Anoro Ellipta 62.5-25 Mcg INH] 1 puff IH DAILY 12/23/17 Amox Tr/Potassium Clavulanate [Augmentin "500" Tablet] 1 tab PO Q8 #14 tablet 12/29/17 Mv-Min/Folic/Vit K/Lycop/Coq10 [Daily Multivitamin Capsule] 1 each PO DAILY #30 capsule 12/29/17 Allergies/Adverse Reactions: No Known Allergies Allergy (Verified 12/23/17 10:38) Review of Systems ROS unobtainable: Due to mental status Physical Exam Vital Signs: Temp Pulse Resp BP Pulse Ox 98.3 F 17 108/78 95 01/08/18 15:08 01/08/18 15:02 01/08/18 15:02 01/08/18 15:02 General appearance: PRESENT: no acute distress Head exam: PRESENT: atraumatic Ear exam: PRESENT: normal external ear exam Mouth exam: PRESENT: dry mucosa Neck exam: ABSENT: carotid bruit, JVD, lymphadenopathy, thyromegaly Respiratory exam: PRESENT: clear to auscultation abiola. ABSENT: accessory muscle use, rales, rhonchi, wheezes Cardiovascular exam: PRESENT: RRR. ABSENT: diastolic murmur, rubs, systolic murmur GI/Abdominal exam: PRESENT: normal bowel sounds, soft. ABSENT: distended, guarding, mass, organolmegaly, rebound, tenderness Rectal exam: PRESENT: deferred Musculoskeletal exam: PRESENT: deformity - myoclonus Neurological exam: PRESENT: alert, awake, oriented to person, oriented to place , reflexes normal - hyperreflexia, other - Final motor movements of lower extremities. ABSENT: aphasic - dysarthria Results Laboratory Results: 01/08/18 14:45 MCV 89 fl (80-97) 01/08/18 14:45 MCH 30.5 pg (27.0-33.4) 01/08/18 14:45 MCHC 34.1 g/dL (32.0-36.0) 01/08/18 14:45 RDW 14.5 % (11.5-14.0) H 01/08/18 14:45 Seg Neutrophils % 62.8 % (42-78) 01/08/18 14:45 Lymphocytes % 23.5 % (13-45) 01/08/18 14:45 Monocytes % 12.0 % (3-13) 01/08/18 14:45 Eosinophils % 1.2 % (0-6) 01/08/18 14:45 Basophils % 0.5 % (0-2) 01/08/18 14:45 Absolute Neutrophils 3.6 10^3/uL (1.7-8.2) 01/08/18 14:45 Absolute Lymphocytes 1.4 10^3/uL (0.5-4.7) 01/08/18 14:45 Absolute Monocytes 0.7 10^3/uL (0.1-1.4) 01/08/18 14:45 Absolute Eosinophils 0.1 10^3/uL (0.0-0.6) 01/08/18 14:45 Absolute Basophils 0.0 10^3/uL (0.0-0.2) 01/08/18 14:45 VBG pH 7.30 (7.30-7.42) 01/08/18 14:45 VBG pCO2 43.8 mmHg (35-63) 01/08/18 14:45 VBG HCO3 21.1 mmol/L (20-32) 01/08/18 14:45 VBG Base Excess -5.1 mmol/L 01/08/18 14:45 Chloride 105 mmol/L (98-107) 01/08/18 14:45 Carbon Dioxide 23 mmol/L (22-30) 01/08/18 14:45 Anion Gap 12 (5-19) 01/08/18 14:45 Est GFR ( Amer) 13 (>60) L 01/08/18 14:45 Est GFR (Non-Af Amer) 11 (>60) L 01/08/18 14:45 Glucose 109 mg/dL (75-110) 01/08/18 14:45 Lactic Acid 1.0 mmol/L (0.7-2.1) 01/08/18 14:45 Calcium 8.6 mg/dL (8.4-10.2) 01/08/18 14:45 Total Bilirubin 1.0 mg/dL (0.2-1.3) 01/08/18 14:45 AST 116 U/L (14-36) H 01/08/18 14:45 ALT 54 U/L (9-52) H 01/08/18 14:45 Alkaline Phosphatase 60 U/L (38-126) 01/08/18 14:45 Total Protein 5.8 g/dL (6.3-8.2) L 01/08/18 14:45 Albumin 3.1 g/dL (3.5-5.0) L 01/08/18 14:45 Urine Color YELLOW 01/08/18 15:27 Urine Appearance CLOUDY 01/08/18 15:27 Urine pH 5.0 (5.0-9.0) 01/08/18 15:27 Ur Specific [place] 1.019 01/08/18 15:27 Urine Protein 30 mg/dL (NEGATIVE) H 01/08/18 15:27 Urine Glucose (UA) NEGATIVE mg/dL (NEGATIVE) 01/08/18 15:27 Urine Ketones NEGATIVE mg/dL (NEGATIVE) 01/08/18 15:27 Urine Blood MODERATE (NEGATIVE) H 01/08/18 15:27 Urine Nitrite NEGATIVE (NEGATIVE) 01/08/18 15:27 Ur Leukocyte Esterase NEGATIVE (NEGATIVE) 01/08/18 15:27 Urine WBC (Auto) 1 /HPF 01/08/18 15:27 Impressions: Chest X-Ray 01/08/18 14:30 IMPRESSION: Slight worsening right basilar aeration as above. Suspicious for unresolved/progressive pneumonia. Head CT 01/08/18 14:30 IMPRESSION: No acute or suspicious intracranial abnormality. Stable exam. Pertinent positive or negative findings of the imaging study reported as a CRITICAL EXAM to VERONIKA AGUILERA MD at14:53 on 01/08/2018. Category of Critical Exam: Stroke alert EVIDENCE OF ACUTE STROKE: NO. Assessment & Plan - Diagnosis (1) Overdose Qualifiers: Encounter type: subsequent encounter Injury intent: undetermined intent Qualified Code(s): T50.904D - Poisoning by unspecified drugs, medicaments and biological substances, undetermined, subsequent encounter Is this a current diagnosis for this admission?: Yes Plan: This is recurrent the patient is been discharged from the hospital less than 2 weeks ago for the same issue. Her drug screen is positive for benzodiazepines but patient is on a whole bunch of medications and she did respond to Narcan. There is no evidence of any respiratory compromise. She will be monitored in the IMCU Patient was seen by behavioral team just about 2 weeks ago and she was advised to seek help for substance abuse problems. Obviously this has not been addressed and this patient really needs substance abuse management (2) Acute kidney injury Is this a current diagnosis for this admission?: Yes Plan: This is new as her kidney function was just 0.62 less than 2 weeks ago. Of note however she did come in with AK I also although her creatinine was about 2.6 on initial presentation on December 24. At this point and basically just going to give him fluids and see how she responds and especially with normal electrolytes and no acidosis there is no immediate need for specialist input. Further consultations and imaging studies will depend on how she responds (3) Acute encephalopathy Is this a current diagnosis for this admission?: Yes Plan: Secondary to drug overdose. She did recognize me from 2 weeks ago and she was able to converse although unfortunately have speech was not really clear and I was not really able to make out somewhat sense It appears this was also part of presenting symptoms during the last admission (4) Anemia Is this a current diagnosis for this admission?: Yes Plan: Hemoglobin is stable and quite similar to what it was about 2 weeks ago. Outpatient follow-up suggested - Time Time Spent: 50 to 70 Minutes Medications reviewed and adjusted accordingly: Yes Anticipated discharge: Acute Rehab Within: within 72 hours - Inpatient Certification Based on my medical assessment, after consideration of the patient's comorbidities, presenting symptoms, or acuity I expect that the services needed warrant INPATIENT care.: Yes Medical Necessity: Need For IV Fluids, Need for Neurological Checks, Risk of Complication if Not Cared For in Hospital
[2018-01-08 17:19] LABS: BILIRUBIN,DIRECT 0.9 mg/dL (0.0-0.4)
[2018-01-08] MEDS ORDERED: ERTAPENEM SODIUM INJ 1 GM VIAL IV PRN (17:44)
[2018-01-08] MEDS ORDERED: ERTAPENEM SODIUM 0.5 GM in NORMAL SALINE 50 ML IV ONE (18:00)
[2018-01-08] MEDS: NORMAL SALINE 1000 ML 1,000 ML IV PRN ×2 (18:05→20:18)
--- NOTE | 2018-01-08 21:09 | EKG REPORT ---
SEVERITY:- NORMAL ECG - SINUS RHYTHM : Confirmed by: Mita Washington 08-Jan-2018 21:09:05
[2018-01-08] MEDS ORDERED: ARIPIPRAZOLE 5 MG TABLET PO ONE (23:00)
[2018-01-09 06:42] LABS: ABSOLUTE BASOPHILS # (AUTO) 0.1 10^3/uL (0.0-0.2); ABSOLUTE EOSINOPHILS # (AUTO) 0.1 10^3/uL (0.0-0.6); ABSOLUTE LYMPHOCYTES (AUTO) 1.6 10^3/uL (0.5-4.7); ABSOLUTE MONOCYTES (AUTO) 0.5 10^3/uL (0.1-1.4); ABSOLUTE NEUT (AUTO) 3.6 10^3/uL (1.7-8.2); BASOPHILS % (AUTO) 1.5 % (0-2); EOSINOPHILS % (AUTO) 1.7 % (0-6); HEMATOCRIT 27.6 % (36.0-47.0); HEMOGLOBIN 9.7 g/dL (12.0-15.5); LYMPHOCYTES % (AUTO) 26.7 % (13-45); MEAN CORPUSCULAR HEMOGLOBIN 31.2 pg (27.0-33.4); MEAN CORPUSCULAR HGB CONC 35.2 g/dL (32.0-36.0); MEAN CORPUSCULAR VOLUME 89 fl (80-97); PLATELET COUNT 242 10^3/uL (150-450); RED BLOOD COUNT 3.11 10^6/uL (3.72-5.28); RED CELL DISTRIBUTION WIDTH 14.6 % (11.5-14.0); SEGMENTED NEUTROPHILS % (AUTO) 61.1 % (42-78); TOTAL CELLS COUNTED % (AUTO) 100 %; WHITE BLOOD COUNT 5.8 10^3/uL (4.0-10.5)
[2018-01-09 07:02] LABS: ALANINE AMINOTRANSFERASE 62 U/L (9-52); ALBUMIN 3.1 g/dL (3.5-5.0); ALKALINE PHOSPHATASE 54 U/L (38-126); ANION GAP 9 (5-19); ASPARTATE AMINO TRANSFERASE 142 U/L (14-36); BILIRUBIN,DIRECT 0.5 mg/dL (0.0-0.4); BILIRUBIN,TOTAL 0.5 mg/dL (0.2-1.3); BLOOD UREA NITROGEN 26 mg/dL (7-20); CALCIUM 8.4 mg/dL (8.4-10.2); CARBON DIOXIDE 23 mmol/L (22-30); CHLORIDE 110 mmol/L (98-107); GLUCOSE 91 mg/dL (75-110); PHOSPHORUS 2.7 mg/dL (2.5-4.5); POTASSIUM 3.8 mmol/L (3.6-5.0); SODIUM 142.4 mmol/L (137-145)
[2018-01-09 07:36] LABS: CREATINE KINASE 4367 U/L (30-135)
[2018-01-09] MEDS: MAGNESIUM SULFATE/D5W 1 GM/100 ML RTUPB IV SCH ×3 (08:00→11:33)
[2018-01-09] MEDS: DOCUSATE SODIUM 100 MG CAPSULE PO SCH (09:38)
[2018-01-09] MEDS: FAMOTIDINE INJ/PF 20 MG/2 ML SDV IV SCH (09:38)
[2018-01-09] MEDS: ENOXAPARIN SODIUM INJ 30 MG/0.3 ML DISP.SYRIN SUBCUT SCH (09:42)
--- NOTE | 2018-01-09 12:27 | PDOC PROGRESS REPORT ---
Subjective Progress Note for:: 01/09/18 Subjective:: Patient is more awake and alert today. Her speech is better but still dysarthric. She apparently was agitated during the night and received a dose of Abilify which seemed to help with her symptoms. Reason For Visit: DRUG OVERDOSE, [place] Physical Exam Vital Signs: Temp Pulse Resp BP Pulse Ox 98.4 F 83 18 154/88 H 99 01/09/18 07:55 01/09/18 07:55 01/09/18 07:55 01/09/18 07:55 01/09/18 07:55 Intake & Output 01/08/18 01/09/18 01/10/18 06:59 06:59 06:59 Intake Total 2000 Output Total 1999 Balance 0 Weight 82 kg General appearance: PRESENT: no acute distress, well-developed, well-nourished Head exam: PRESENT: atraumatic, normocephalic Eye exam: PRESENT: conjunctiva pink, EOMI, PERRLA. ABSENT: scleral icterus Ear exam: PRESENT: normal external ear exam Mouth exam: PRESENT: dry mucosa, moist, tongue midline, other - Tardive dyskinesia Neck exam: ABSENT: carotid bruit, JVD, lymphadenopathy, thyromegaly Respiratory exam: PRESENT: clear to auscultation abiola. ABSENT: rales, rhonchi, wheezes Cardiovascular exam: PRESENT: RRR. ABSENT: diastolic murmur, rubs, systolic murmur Pulses: PRESENT: normal dorsalis pedis pul Vascular exam: PRESENT: normal capillary refill GI/Abdominal exam: PRESENT: normal bowel sounds, soft. ABSENT: distended, guarding, mass, organolmegaly, rebound, tenderness Rectal exam: PRESENT: deferred Extremities exam: PRESENT: full ROM. ABSENT: calf tenderness, clubbing, pedal edema Musculoskeletal exam: PRESENT: other - Resting tremors Neurological exam: PRESENT: alert, awake, oriented to person, oriented to place , oriented to time, motor sensory deficit Psychiatric exam: PRESENT: appropriate affect, normal mood. ABSENT: homicidal ideation, suicidal ideation Skin exam: PRESENT: dry, intact, warm. ABSENT: cyanosis, rash Results Laboratory Results: 01/09/18 06:27 01/09/18 06:27 01/09/18 01/09/18 01/09/18 06:27 06:27 06:27 WBC 5.8 RBC 3.11 L Hgb 9.7 L Hct 27.6 L MCV 89 MCH 31.2 MCHC 35.2 RDW 14.6 H Plt Count 242 Seg Neutrophils % 61.1 Lymphocytes % 26.7 Monocytes % 9.0 Eosinophils % 1.7 Basophils % 1.5 Absolute Neutrophils 3.6 Absolute Lymphocytes 1.6 Absolute Monocytes 0.5 Absolute Eosinophils 0.1 Absolute Basophils 0.1 Sodium 142.4 Potassium 3.8 Chloride 110 H Carbon Dioxide 23 Anion Gap 9 BUN 26 H Creatinine 1.72 H Est GFR ( Amer) 37 L Est GFR (Non-Af Amer) 30 L Glucose 91 Calcium 8.4 Phosphorus 2.7 Magnesium 1.4 L Total Bilirubin 0.5 AST 142 H ALT 62 H Alkaline Phosphatase 54 Ammonia < 8.7 L Total Protein 6.0 L Albumin 3.1 L 01/09/18 06:27 Creatine Kinase 4367 H Impressions: Chest X-Ray 01/08/18 14:30 IMPRESSION: Slight worsening right basilar aeration as above. Suspicious for unresolved/progressive pneumonia. Head CT 01/08/18 14:30 IMPRESSION: No acute or suspicious intracranial abnormality. Stable exam. Pertinent positive or negative findings of the imaging study reported as a CRITICAL EXAM to VERONIKA AGUILERA MD at14:53 on 01/08/2018. Category of Critical Exam: Stroke alert EVIDENCE OF ACUTE STROKE: NO. Assessment & Plan - Diagnosis (1) Overdose Qualifiers: Encounter type: subsequent encounter Injury intent: undetermined intent Qualified Code(s): T50.904D - Poisoning by unspecified drugs, medicaments and biological substances, undetermined, subsequent encounter Is this a current diagnosis for this admission?: Yes Plan: This is recurrent the patient is been discharged from the hospital less than 2 weeks ago for the same issue. Her drug screen is positive for benzodiazepines but patient is on a whole bunch of medications and she did respond to Narcan. Awaiting evaluation by behavioral team (2) Acute kidney injury Is this a current diagnosis for this admission?: Yes Plan: Likely secondary to intravascular volume depletion her creatinine is down to 1.2 today (3) Acute encephalopathy Is this a current diagnosis for this admission?: Yes Plan: Secondary to drug overdose this is improving (4) Anemia Is this a current diagnosis for this admission?: Yes Plan: Hemoglobin stable. Iron studies done last time of admission revealed an iron store 10. I believe she received intravenous iron I will go ahead and give another dose. She needs outpatient follow-up of anemia - Time Time Spent with patient: 15-24 minutes Medications reviewed and adjusted accordingly: Yes Anticipated discharge: Acute Rehab Within: within 72 hours - Inpatient Certification Based on my medical assessment, after consideration of the patient's comorbidities, presenting symptoms, or acuity I expect that the services needed warrant INPATIENT care.: Yes Medical Necessity: Need Close Monitoring Due to Risk of Patient Decompensation, Risk of Complication if Not Cared For in Hospital - Plan Summary Plan Summary: Possible pneumonia as per chest x-ray finding although clinically I see no evidence of pneumonia. Chest x-ray demonstrates a worsening of the infiltrate. She did have aspiration pneumonia during her last admission. Placed on empiric antibiotic therapy and will continue to monitor and adjust as appropriate
[2018-01-09] MEDS ORDERED: ONDANSETRON HCL INJ/PF 4 MG/2 ML SDV IV PRN (13:00)
[2018-01-09] MEDS ORDERED: IRON SUCROSE COMPLEX INJ/PF 100 MG/5 ML SDV IV ONE (13:00)
[2018-01-09] MEDS ORDERED: CITALOPRAM HYDROBROMIDE 20 MG TABLET PO ONE (13:00)
[2018-01-09] MEDS ORDERED: INSULIN LISPRO 100 UNIT/ML 3 ML VIAL SUBCUT PRN (13:11)
[2018-01-09] MEDS ORDERED: DEXTROSE 50%-WATER SYRINGE 25 GM/50 ML DOSE IV PRN (13:11)
[2018-01-09] MEDS ORDERED: DEXTROSE 40% GEL 15 GM TUBE PO PRN (13:11)
[2018-01-09] MEDS ORDERED: GLUCAGON,HUMAN RECOMB 1 MG INJ IM PRN (13:11)
[2018-01-09] MEDS ORDERED: DEXTROSE 40% GEL 15 GM TUBE X 2 PO PRN (13:11)
[2018-01-09] MEDS ORDERED: DEXTROSE 50%-WATER SYRINGE 12.5 GM/25 ML DOSE IV PRN (13:11)
[2018-01-09] MEDS: BUSPIRONE HCL 10 MG TABLET PO SCH ×2 (15:45→22:46)
[2018-01-09] MEDS: GABAPENTIN 300 MG CAPSULE PO SCH ×2 (15:46→22:47)
[2018-01-09] MEDS: TRAMADOL HCL 50 MG TABLET PO PRN (15:46)
[2018-01-09] MEDS ORDERED: ERTAPENEM SODIUM 0.5 GM in NORMAL SALINE 50 ML IV SCH (18:00)
[2018-01-09] MEDS: NORMAL SALINE 1000 ML 1,000 ML IV PRN (18:11)
[2018-01-09] MEDS ORDERED: (PENDING PHARMACY ID) (Quetiapine Fumarate [Seroquel] 600 MG) PO SCH (22:00)
[2018-01-09] MEDS ORDERED: (PENDING PHARMACY ID) (Buspirone Hcl [Buspar 15 Mg Tablet] 7.5 MG) PO SCH (22:00)
[2018-01-09] MEDS ORDERED: QUETIAPINE FUMARATE 100 MG TABLET PO SCH (22:00)
[2018-01-09] MEDS: QUETIAPINE FUMARATE 100 MG TABLET PO SCH (22:46)
[2018-01-10 06:29] LABS: ABSOLUTE EOSINOPHILS # (AUTO) 0.1 10^3/uL (0.0-0.6); ABSOLUTE LYMPHOCYTES (AUTO) 1.4 10^3/uL (0.5-4.7); ABSOLUTE MONOCYTES (AUTO) 0.4 10^3/uL (0.1-1.4); ABSOLUTE NEUT (AUTO) 1.7 10^3/uL (1.7-8.2); EOSINOPHILS % (AUTO) 2.2 % (0-6); HEMATOCRIT 29.2 % (36.0-47.0); HEMOGLOBIN 10.3 g/dL (12.0-15.5); LYMPHOCYTES % (AUTO) 37.8 % (13-45); MEAN CORPUSCULAR HEMOGLOBIN 30.6 pg (27.0-33.4); MEAN CORPUSCULAR HGB CONC 35.1 g/dL (32.0-36.0); MEAN CORPUSCULAR VOLUME 87 fl (80-97); MONOCYTES % (AUTO) 11.8 % (3-13); PLATELET COUNT 230 10^3/uL (150-450); RED BLOOD COUNT 3.35 10^6/uL (3.72-5.28); RED CELL DISTRIBUTION WIDTH 14.1 % (11.5-14.0); SEGMENTED NEUTROPHILS % (AUTO) 47.2 % (42-78); TOTAL CELLS COUNTED % (AUTO) 100 %; WHITE BLOOD COUNT 3.6 10^3/uL (4.0-10.5)
[2018-01-10] MEDS: GABAPENTIN 300 MG CAPSULE PO SCH ×3 (06:31→21:12)
[2018-01-10] MEDS: BUSPIRONE HCL 10 MG TABLET PO SCH ×3 (06:31→21:10)
[2018-01-10 06:49] LABS: ALANINE AMINOTRANSFERASE 52 U/L (9-52); ALBUMIN 3.2 g/dL (3.5-5.0); ALKALINE PHOSPHATASE 52 U/L (38-126); ANION GAP 8 (5-19); ASPARTATE AMINO TRANSFERASE 84 U/L (14-36); BILIRUBIN,DIRECT 0.4 mg/dL (0.0-0.4); BILIRUBIN,TOTAL 0.4 mg/dL (0.2-1.3); BLOOD UREA NITROGEN 11 mg/dL (7-20); CALCIUM 8.9 mg/dL (8.4-10.2); CARBON DIOXIDE 27 mmol/L (22-30); CHLORIDE 109 mmol/L (98-107); GLUCOSE 87 mg/dL (75-110); POTASSIUM 3.6 mmol/L (3.6-5.0); SODIUM 144.1 mmol/L (137-145); TOTAL PROTEIN 6.1 g/dL (6.3-8.2)
[2018-01-10] MEDS ORDERED: MAGNESIUM SULFATE 4 GM/100 ML RTUPB IV ONE (08:30)
[2018-01-10] MEDS ORDERED: VIT K PO SCH (10:00)
[2018-01-10] MEDS ORDERED: CITALOPRAM HYDROBROMIDE 20 MG TABLET PO SCH (10:00)
[2018-01-10] MEDS ORDERED: COQ10 PO SCH (10:00)
[2018-01-10] MEDS ORDERED: MV MIN PO SCH (10:00)
[2018-01-10] MEDS ORDERED: [UNRECOGNIZED DRUG - OTHER] PO SCH (10:00)
[2018-01-10] MEDS ORDERED: FOLIC PO SCH (10:00)
[2018-01-10] MEDS ORDERED: (PENDING PHARMACY ID) (Aripiprazole [Abilify 10 Mg Tablet] 10 MG) PO SCH (10:00)
[2018-01-10] MEDS ORDERED: LYCOP PO SCH (10:00)
[2018-01-10] MEDS: FAMOTIDINE INJ/PF 20 MG/2 ML SDV IV SCH (11:41)
[2018-01-10] MEDS: ARIPIPRAZOLE 5 MG TABLET PO SCH (11:44)
[2018-01-10] MEDS: MULTIVITAMIN TABLET PO SCH (11:45)
[2018-01-10] MEDS: CITALOPRAM HYDROBROMIDE 20 MG TABLET PO SCH (11:45)
[2018-01-10] MEDS: MAGNESIUM OXIDE 400 MG TABLET PO SCH (11:45)
[2018-01-10] MEDS: ENOXAPARIN SODIUM INJ 30 MG/0.3 ML DISP.SYRIN SUBCUT SCH (11:46)
[2018-01-10] MEDS: TRAMADOL HCL 50 MG TABLET PO PRN ×2 (11:49→18:40)
[2018-01-10] MEDS: DOCUSATE SODIUM 100 MG CAPSULE PO SCH (11:52)
--- NOTE | 2018-01-10 12:11 | PSYCHOLOGICAL NOTE ---
Psych Note - Psych Note Psych Note: Reason for Consult: Substance abuse patient's sister, Zainab, at [phone] This 57-year-old female presents to the emergency room with apparent overdose. She was just discharged by me less than 2 weeks ago with the same diagnosis and she presents back today after family found her slumped over earlier today. Patient himself is unable to provide any history although she is awake and alert and able to communicate however her speech is pretty slurred and that she is unable to provide a concise history. Reviewing the chart it appears that she was last seen normal last night. She has a history of alcohol abuse however she told me that she has not been drinking since she left the hospital. The does say that she used Xanax that have been prescribed for her and review of the ED physician notes states that she had 30 days of Xanax filled on January 02 and the bladder is currently empty. It is unclear how many pills of Xanax there were as this was not prescribed by me. She was also prescribed 90 tabs of Percocet on December 19 and the bottle is currently missing. Patient disclosed she is still having difficulty remembering things and states that her sister called the EMS "because she thought I overdosed again... I did not have any meds to overdose." She reports that she lives alone; "the TV is my best friend." Patient discloses she adamantly denies suicidal ideation however does discuss loss of her mother, father, and daughter. She identifies these losses as happening "many years ago." Patient discloses that she would be interested in talking to a therapist however states she is not interested in going inpatient to anything "permanent." Patient disclosed that she does go to [facility] for her prescription of Abilify and feels that that would be a good place to start for obtaining a therapist. Patient was unable to identify the correct year or her correct year. She was able to correctly identify that it is currently the summer end of December and identify the months of the year. Patient is alert and orientated to person, place and circumstance. It is noted patient knows the month however is unable to identify the current year or day. Mood is euthymic with congruent affect. Patient denies suicidal and homicidal ideation. Delusions are absent and behaviors congruent with an intact reality based presentation i.e. organized and linear thought processes. Eye contact was well-maintained. Conversational speech was slow and at times difficult to understand. Attention and concentration are fair. Insight, judgment, impulse control appear to be historically poor due to substance abuse. Chart review conducted: Patient was seen by the Behavioral health Team on 12/28/2017: She continued to report that she had been sober for approximately 3 months; however, the night she arrived to [facility] was a relapse. Patient is able to correctly identify the current month and year and openly discusses some loss that she has had in the past (conversation topic came up because December is the anniversary month her "many years ago"). She confirms while this makes her sad but she denies her grief makes her want to hurt herself. No medication recommendations at this time 291.9 (F10.99) unspecified alcohol related disorder; recent relapse 292.9 (F11.99) unspecified opiate related disorder Impression\\plan: Patient has a history of substance abuse with a resent reported relapse prior to her 12/23/2017 [facility] visit. Patient's current visit indicates probable opiates, amphetamines, and benzodiazapine use. Patient is highly encouraged for substance abuse treatment that includes both alcohol and opiates. Patient was still not complete orientated and will have to be re- evaluated. She is refusing inpatient substance abuse treatment and there is concern that she has not followed up with outpatient services. Dr. Rosa was consulted and the care and management this patient.
--- NOTE | 2018-01-10 12:13 | PSYCHOLOGICAL NOTE ---
Psych Note - Psych Note Psych Note: Reason for Consult: Substance abuse patient's sister, Zainab, at [phone] This 57-year-old female presents to the emergency room with apparent overdose. She was just discharged by me less than 2 weeks ago with the same diagnosis and she presents back today after family found her slumped over earlier today. Patient himself is unable to provide any history although she is awake and alert and able to communicate however her speech is pretty slurred and that she is unable to provide a concise history. Reviewing the chart it appears that she was last seen normal last night. She has a history of alcohol abuse however she told me that she has not been drinking since she left the hospital. The does say that she used Xanax that have been prescribed for her and review of the ED physician notes states that she had 30 days of Xanax filled on January 02 and the bladder is currently empty. It is unclear how many pills of Xanax there were as this was not prescribed by me. She was also prescribed 90 tabs of Percocet on December 19 and the bottle is currently missing. Clinician spoke with patient's sister Zainab she disclose concern that "this is twice in two weeks she has overdosed." She inquires about the possibility of a possible aid to come into the patient's home to help assist her or possible assisted living however she is aware the patient refuses to go to assisted living. She disclosed that she was told by a neighbor that she should check on her sister and when she arrived "all four lopez were on with a fish stick on one (not on raman- straight on burner)... the a/c was off and she was slumped on a chair." The patient's sister and brother lives about 20-25 mins away from patient (not right down the street as patient identified). She requests possible an aid and or nurse to check on the patient once she is discharged home and to possibly have her medication in blister packs to easily see if misuse. Clinician spoke with patient. Patient's orientation has improved however still is unable to provide current year. Patient was able to correctly identify answers to all orientation and higher level cognitive thinking questions. Patient discussed her depression in regards to losing her family members but again denies that she did any suicide attempt or overdose on her medications stating "I just took a handful of my Seroquel." Patient is unwilling to discuss treatment options and states she just wants to "go home." No medication recommendations at this time 311 (F32.9) unspecified depressive disorder 291.9 (F10.99) unspecified alcohol related disorder; recent relapse 292.9 (F11.99) unspecified opiate related disorder Impression\\plan: Patient has a history of substance abuse with a resent reported relapse prior to her 12/23/2017 [facility] visit. Patient's current visit indicates probable opiates, amphetamines, and benzodiazapine use. Patient is highly encouraged for substance abuse treatment that includes both alcohol and opiates and mental health treatment for her complicated bereavement. Patient is still not medically cleared. Patient will be reevaluated tomorrow. Dr. Rosa was consulted and the care and management this patient.
--- NOTE | 2018-01-10 13:51 | PDOC PROGRESS REPORT ---
Subjective Progress Note for:: 01/10/18 Subjective:: Patient is more awake and alert today. Her speech is much better today. She has been seen by psych and consultation noted. Patient is telling me that she will be going home and will not be going to any rehab. As stated in the H&P and in the consultation note this is patient's second presentation in 2 weeks with drug overdose. Is insisting that she is not really overdosing on her drugs and of course denies any suicidal intent however is unclear to me if patient really does recognize that this is a serious Reason For Visit: DRUG OVERDOSE, [place] Physical Exam Vital Signs: Temp Pulse Resp BP Pulse Ox 97.6 F 75 14 147/80 H 97 01/10/18 04:19 01/10/18 10:17 01/10/18 10:17 01/10/18 04:19 01/10/18 10:17 Intake & Output 01/09/18 01/10/18 01/11/18 06:59 06:59 06:59 Intake Total 1999 46 Output Total 1999 4200 Balance 0 490 Weight 82 kg 76.4 kg General appearance: PRESENT: no acute distress, cooperative Head exam: PRESENT: atraumatic Eye exam: PRESENT: other - L eye droop, glassy Mouth exam: PRESENT: dry mucosa Respiratory exam: PRESENT: clear to auscultation abiola, unlabored. ABSENT: accessory muscle use, crackles GI/Abdominal exam: PRESENT: normal bowel sounds, soft. ABSENT: distended, guarding, mass, organolmegaly, rebound, tenderness Rectal exam: PRESENT: deferred Gentrourinary exam: PRESENT: ecchymosis Musculoskeletal exam: PRESENT: other - tardive dyskinesia, fine motor movements Neurological exam: PRESENT: alert, awake, oriented to person, oriented to place , oriented to time Psychiatric exam: PRESENT: anxious, unusual affect Results Laboratory Results: 01/10/18 06:21 01/10/18 06:21 01/10/18 01/10/18 06:21 06:21 WBC 3.6 L RBC 3.35 L Hgb 10.3 L Hct 29.2 L MCV 87 MCH 30.6 MCHC 35.1 RDW 14.1 H Plt Count 230 Seg Neutrophils % 47.2 Lymphocytes % 37.8 Monocytes % 11.8 Eosinophils % 2.2 Basophils % 1.0 Absolute Neutrophils 1.7 Absolute Lymphocytes 1.4 Absolute Monocytes 0.4 Absolute Eosinophils 0.1 Absolute Basophils 0.0 Sodium 144.1 Potassium 3.6 Chloride 109 H Carbon Dioxide 27 Anion Gap 8 BUN 11 Creatinine 0.70 Est GFR ( Amer) > 60 Est GFR (Non-Af Amer) > 60 Glucose 87 Calcium 8.9 Magnesium 1.5 L Total Bilirubin 0.4 AST 84 H ALT 52 Alkaline Phosphatase 52 Total Protein 6.1 L Albumin 3.2 L 01/09/18 01/10/18 06:27 06:21 Creatine Kinase 4367 H CK-MB (CK-2) 3.73 Impressions: Chest X-Ray 01/08/18 14:30 IMPRESSION: Slight worsening right basilar aeration as above. Suspicious for unresolved/progressive pneumonia. Head CT 01/08/18 14:30 IMPRESSION: No acute or suspicious intracranial abnormality. Stable exam. Pertinent positive or negative findings of the imaging study reported as a CRITICAL EXAM to VERONIKA AGUILERA MD at14:53 on 01/08/2018. Category of Critical Exam: Stroke alert EVIDENCE OF ACUTE STROKE: NO. Assessment & Plan - Diagnosis (1) Overdose Qualifiers: Encounter type: subsequent encounter Injury intent: undetermined intent Qualified Code(s): T50.904D - Poisoning by unspecified drugs, medicaments and biological substances, undetermined, subsequent encounter Is this a current diagnosis for this admission?: Yes Plan: This is recurrent the patient is been discharged from the hospital less than 2 weeks ago for the same issue. (2) Acute kidney injury Is this a current diagnosis for this admission?: Yes Plan: Resolved (3) Acute encephalopathy Is this a current diagnosis for this admission?: Yes Plan: Resolved (4) Anemia Qualifiers: Anemia type: iron deficiency Is this a current diagnosis for this admission?: Yes Plan: Chronic, stable Received Iron IV Outpatient follow up - Inpatient Certification Based on my medical assessment, after consideration of the patient's comorbidities, presenting symptoms, or acuity I expect that the services needed warrant INPATIENT care.: Yes Medical Necessity: Significant Comorbidiites Make Outpatient Treatment Too Risky , Need for IV Antibiotics
[2018-01-10] MEDS: NORMAL SALINE 1000 ML 1,000 ML IV PRN (15:02)
[2018-01-10] MEDS ORDERED: ERTAPENEM SODIUM 1 GM in NORMAL SALINE 50 ML IV SCH (18:00)
[2018-01-10] MEDS: QUETIAPINE FUMARATE 100 MG TABLET PO SCH (21:11)
[2018-01-11] MEDS: NORMAL SALINE 1000 ML 1,000 ML IV PRN (00:26)
[2018-01-11] MEDS: BUSPIRONE HCL 10 MG TABLET PO SCH ×3 (05:45→21:53)
[2018-01-11] MEDS: GABAPENTIN 300 MG CAPSULE PO SCH ×3 (05:45→21:53)
[2018-01-11] MEDS: TRAMADOL HCL 50 MG TABLET PO PRN ×3 (05:46→18:34)
[2018-01-11] MEDS: ENOXAPARIN SODIUM INJ 30 MG/0.3 ML DISP.SYRIN SUBCUT SCH (09:35)
[2018-01-11] MEDS: ARIPIPRAZOLE 5 MG TABLET PO SCH (09:36)
[2018-01-11] MEDS: DOCUSATE SODIUM 100 MG CAPSULE PO SCH (09:36)
[2018-01-11] MEDS: CITALOPRAM HYDROBROMIDE 20 MG TABLET PO SCH (09:36)
[2018-01-11] MEDS: FAMOTIDINE INJ/PF 20 MG/2 ML SDV IV SCH (09:36)
[2018-01-11] MEDS: MULTIVITAMIN TABLET PO SCH (09:36)
[2018-01-11] MEDS: MAGNESIUM OXIDE 400 MG TABLET PO SCH (09:36)
[2018-01-11] MEDS ORDERED: HYDRALAZINE HCL INJ/PF 20 MG/1 ML SDV IV PRN (11:22)
[2018-01-11] MEDS ORDERED: AMLODIPINE BESYLATE 10 MG TABLET PO ONE (13:00)
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
--- NOTE | 2018-01-11 15:24 | PDOC PROGRESS REPORT ---
Subjective Progress Note for:: 01/11/18 Subjective:: Patient is more awake and alert today. Her speech is much better today. She has been seen by psych and consultation noted. Patient is telling me that she will be going home and will not be going to any rehab. As stated in the H&P and in the consultation note this is patient's second presentation in 2 weeks with drug overdose. Is insisting that she is not really overdosing on her drugs and of course denies any suicidal intent however is unclear to me if patient really does recognize that this is a serious issue. Further discussion with [facility] I will team show they are concerned about possible nefarious intent although patient continues to deny suicidal ideation. It is felt at this time that she likely will benefit from inpatient psychiatric management and she will be placed under involuntary commitment which I concur with. Her blood pressure is somewhat poorly controlled today as her antihypertensives have been on hold but they will be restarted today. Once she is medically stable hopefully by tomorrow she can be transferred to psychiatric unit once a bed is available. Reason For Visit: DRUG OVERDOSE, [place] Physical Exam Vital Signs: Temp Pulse Resp BP Pulse Ox 97.9 F 68 18 179/98 H 98 01/11/18 11:02 01/11/18 14:00 01/11/18 07:46 01/11/18 11:02 01/11/18 11:02 Intake & Output 01/10/18 01/11/18 01/12/18 06:59 06:59 06:59 Intake Total 4690 5085 825 Output Total 4200 1300 Balance 490 5085 -475 Weight 76.4 kg 75.9 kg General appearance: PRESENT: no acute distress Head exam: PRESENT: atraumatic Neck exam: ABSENT: carotid bruit, JVD, lymphadenopathy, thyromegaly Respiratory exam: PRESENT: clear to auscultation abiola. ABSENT: rales, rhonchi, wheezes Cardiovascular exam: PRESENT: RRR. ABSENT: diastolic murmur, rubs, systolic murmur GI/Abdominal exam: PRESENT: normal bowel sounds, soft. ABSENT: distended, guarding, mass, organolmegaly, rebound, tenderness Rectal exam: PRESENT: deferred Extremities exam: PRESENT: full ROM. ABSENT: calf tenderness, clubbing, pedal edema Musculoskeletal exam: PRESENT: other - Tardive dyskinesia InVoluntary lower extremity muscle movement Neurological exam: PRESENT: alert, awake, oriented to person, oriented to place , oriented to time, CN II-XII grossly intact Psychiatric exam: PRESENT: appropriate affect Results Laboratory Results: 01/10/18 06:21 01/10/18 06:21 18 06:38 Magnesium 1.4 L 01/09/18 01/10/18 06:27 06:21 Creatine Kinase 4367 H CK-MB (CK-2) 3.73 Impressions: Chest X-Ray 01/08/18 14:30 IMPRESSION: Slight worsening right basilar aeration as above. Suspicious for unresolved/progressive pneumonia. Head CT 01/08/18 14:30 IMPRESSION: No acute or suspicious intracranial abnormality. Stable exam. Pertinent positive or negative findings of the imaging study reported as a CRITICAL EXAM to VERONIKA AGUILERA MD at14:53 on 01/08/2018. Category of Critical Exam: Stroke alert EVIDENCE OF ACUTE STROKE: NO. Assessment & Plan - Diagnosis (1) Overdose Qualifiers: Encounter type: subsequent encounter Injury intent: undetermined intent Qualified Code(s): T50.904D - Poisoning by unspecified drugs, medicaments and biological substances, undetermined, subsequent encounter Is this a current diagnosis for this admission?: Yes Plan: Questionable if this is intentional. Please see psychiatric evaluation and follow-up progress note. Patient has been involuntarily committed and she will need inpatient psych evaluation and management (2) Acute kidney injury Is this a current diagnosis for this admission?: Yes Plan: Resolved (3) Acute encephalopathy Is this a current diagnosis for this admission?: Yes Plan: Patient back at her baseline (4) Anemia Qualifiers: Anemia type: iron deficiency Is this a current diagnosis for this admission?: Yes Plan: She received iron IV and I will place her on oral iron (5) Hepatitis C Qualifiers: Viral hepatitis chronicity: chronic Is this a current diagnosis for this admission?: Yes (6) HTN (hypertension) Qualifiers: Hypertension type: essential hypertension Qualified Code(s): I10 - Essential (primary) hypertension Is this a current diagnosis for this admission?: Yes Plan: We will restart her antihypertensives and monitor overnight if blood pressure is stable then she likely can be discharged in a.m. - Time Time Spent with patient: 15-24 minutes Medications reviewed and adjusted accordingly: Yes Anticipated discharge: Other Within: within 24 hours - Inpatient Certification Based on my medical assessment, after consideration of the patient's comorbidities, presenting symptoms, or acuity I expect that the services needed warrant INPATIENT care.: Yes Medical Necessity: Significant Comorbidiites Make Outpatient Treatment Too Risky , Risk of Complication if Not Cared For in Hospital - Plan Summary Plan Summary: Possible aspiration pneumonia for which patient is on Invanz however clinically she appears to be stable respiratory murphy. We will continue empiric antibiotic and switch her to oral antibiotics at discharge
[2018-01-11] MEDS ORDERED: MAGNESIUM SULFATE 4 GM/100 ML RTUPB IV ONE (16:30)
[2018-01-11] MEDS: FERROUS SULFATE 325 MG TABLET PO SCH (18:34)
[2018-01-11] MEDS: ERTAPENEM SODIUM 1 GM in NORMAL SALINE 50 ML IV SCH (21:52)
[2018-01-11] MEDS: QUETIAPINE FUMARATE 100 MG TABLET PO SCH (21:53)
[2018-01-12] MEDS: NORMAL SALINE 1000 ML 1,000 ML IV PRN ×2 (03:30→20:33)
[2018-01-12] MEDS: BUSPIRONE HCL 10 MG TABLET PO SCH ×3 (05:25→21:30)
[2018-01-12] MEDS: GABAPENTIN 300 MG CAPSULE PO SCH ×3 (05:26→21:29)
[2018-01-12] MEDS: FERROUS SULFATE 325 MG TABLET PO SCH ×2 (08:24→17:48)
[2018-01-12] MEDS: TRAMADOL HCL 50 MG TABLET PO PRN ×3 (08:24→20:40)
[2018-01-12] MEDS: MULTIVITAMIN TABLET PO SCH (09:56)
[2018-01-12] MEDS: ENOXAPARIN SODIUM INJ 30 MG/0.3 ML DISP.SYRIN SUBCUT SCH (09:56)
[2018-01-12] MEDS: MAGNESIUM OXIDE 400 MG TABLET PO SCH (09:56)
[2018-01-12] MEDS: AMLODIPINE BESYLATE 10 MG TABLET PO SCH (09:56)
[2018-01-12] MEDS: CITALOPRAM HYDROBROMIDE 20 MG TABLET PO SCH (09:57)
[2018-01-12] MEDS: FAMOTIDINE INJ/PF 20 MG/2 ML SDV IV SCH (09:57)
[2018-01-12] MEDS: ARIPIPRAZOLE 5 MG TABLET PO SCH (09:57)
[2018-01-12] MEDS: DOCUSATE SODIUM 100 MG CAPSULE PO SCH (09:57)
[2018-01-12] MEDS ORDERED: LISINOPRIL 10 MG TABLET PO SCH (10:00)
--- NOTE | 2018-01-12 14:21 | PDOC PROGRESS REPORT ---
Subjective Progress Note for:: 01/12/18 Subjective:: Patient is more awake and alert today. Her speech is much better today. She has been seen by psych and consultation noted. Patient is telling me that she will be going home and will not be going to any rehab. As stated in the H&P and in the consultation note this is patient's second presentation in 2 weeks with drug overdose. Is insisting that she is not really overdosing on her drugs and of course denies any suicidal intent however is unclear to me if patient really does recognize that this is a serious issue. Further discussion with [facility] I will team show they are concerned about possible nefarious intent although patient continues to deny suicidal ideation. It is felt at this time that she likely will benefit from inpatient psychiatric management and she will be placed under involuntary commitment which I concur with. Her blood pressure is better today and she is medically stable for transfer Reason For Visit: DRUG OVERDOSE, [place] Physical Exam Vital Signs: Temp Pulse Resp BP Pulse Ox 98.7 F 83 16 156/95 H 94 01/12/18 08:31 01/12/18 09:42 01/12/18 09:42 01/12/18 08:31 01/12/18 09:42 Intake & Output 01/11/18 01/12/18 01/13/18 06:59 06:59 06:59 Intake Total 5085 4267 Output Total 4900 Balance 5085 -633 Weight 75.9 kg 74.5 kg General appearance: PRESENT: no acute distress, well-developed Head exam: PRESENT: atraumatic, normocephalic Eye exam: PRESENT: conjunctiva pink, EOMI, PERRLA. ABSENT: scleral icterus Ear exam: PRESENT: normal external ear exam Mouth exam: PRESENT: moist, tongue midline Neck exam: ABSENT: carotid bruit, JVD, lymphadenopathy, thyromegaly Respiratory exam: PRESENT: clear to auscultation abiola. ABSENT: rales, rhonchi, wheezes Cardiovascular exam: PRESENT: RRR. ABSENT: diastolic murmur, rubs, systolic murmur Pulses: PRESENT: normal dorsalis pedis pul Vascular exam: PRESENT: normal capillary refill GI/Abdominal exam: PRESENT: normal bowel sounds, soft. ABSENT: distended, guarding, mass, organolmegaly, rebound, tenderness Rectal exam: PRESENT: deferred Extremities exam: PRESENT: full ROM. ABSENT: calf tenderness, clubbing, pedal edema Musculoskeletal exam: PRESENT: other - tardive dyskinesis Involuntary leg movements Neurological exam: PRESENT: alert, awake, oriented to person, oriented to place , oriented to time, oriented to situation, CN II-XII grossly intact. ABSENT: motor sensory deficit Psychiatric exam: PRESENT: appropriate affect. ABSENT: homicidal ideation, suicidal ideation Skin exam: PRESENT: dry, intact, warm. ABSENT: cyanosis, rash Results Laboratory Results: 01/10/18 06:21 01/10/18 06:21 01/12/18 05:27 Magnesium 2.0 01/09/18 01/10/18 01/12/18 06:27 06:21 05:27 Creatine Kinase 4367 H 243 H CK-MB (CK-2) 3.73 Impressions: Chest X-Ray 01/08/18 14:30 IMPRESSION: Slight worsening right basilar aeration as above. Suspicious for unresolved/progressive pneumonia. Head CT 01/08/18 14:30 IMPRESSION: No acute or suspicious intracranial abnormality. Stable exam. Pertinent positive or negative findings of the imaging study reported as a CRITICAL EXAM to VERONIKA AGUILERA MD at14:53 on 01/08/2018. Category of Critical Exam: Stroke alert EVIDENCE OF ACUTE STROKE: NO. Assessment & Plan - Diagnosis (1) Overdose Qualifiers: Encounter type: subsequent encounter Injury intent: undetermined intent Qualified Code(s): T50.904D - Poisoning by unspecified drugs, medicaments and biological substances, undetermined, subsequent encounter Is this a current diagnosis for this admission?: Yes (2) Acute kidney injury Is this a current diagnosis for this admission?: Yes Plan: Resolved (3) Acute encephalopathy Is this a current diagnosis for this admission?: Yes Plan: Resolved (4) Anemia Qualifiers: Anemia type: iron deficiency Is this a current diagnosis for this admission?: Yes Plan: Stable (5) Hepatitis C Qualifiers: Viral hepatitis chronicity: chronic Is this a current diagnosis for this admission?: Yes (6) HTN (hypertension) Qualifiers: Hypertension type: essential hypertension Qualified Code(s): I10 - Essential (primary) hypertension Is this a current diagnosis for this admission?: Yes Plan: Better controlled - Time Time Spent with patient: 15-24 minutes Medications reviewed and adjusted accordingly: Yes Anticipated discharge: Other Within: when bed available - Inpatient Certification Based on my medical assessment, after consideration of the patient's comorbidities, presenting symptoms, or acuity I expect that the services needed warrant INPATIENT care.: Yes Medical Necessity: Need Close Monitoring Due to Risk of Patient Decompensation - Plan Summary Plan Summary: Patient is medically cleared and stable from medical standpoint to be discharged. Will await psychiatry plans
[2018-01-12] MEDS: QUETIAPINE FUMARATE 100 MG TABLET PO SCH (21:29)
[2018-01-12] MEDS: ERTAPENEM SODIUM 1 GM in NORMAL SALINE 50 ML IV SCH (21:31)
[2018-01-13] MEDS: GABAPENTIN 300 MG CAPSULE PO SCH ×3 (05:09→21:14)
[2018-01-13] MEDS: BUSPIRONE HCL 10 MG TABLET PO SCH ×3 (05:10→21:14)
[2018-01-13] MEDS: TRAMADOL HCL 50 MG TABLET PO PRN ×3 (05:18→17:32)
[2018-01-13] MEDS: NORMAL SALINE 1000 ML 1,000 ML IV PRN (05:18)
[2018-01-13] MEDS ORDERED: LISINOPRIL 10 MG TABLET PO SCH (08:01)
[2018-01-13] MEDS: DOCUSATE SODIUM 100 MG CAPSULE PO SCH (11:42)
[2018-01-13] MEDS: ENOXAPARIN SODIUM INJ 30 MG/0.3 ML DISP.SYRIN SUBCUT SCH (11:42)
[2018-01-13] MEDS: FERROUS SULFATE 325 MG TABLET PO SCH ×2 (11:43→17:32)
[2018-01-13] MEDS: AMLODIPINE BESYLATE 10 MG TABLET PO SCH (11:43)
[2018-01-13] MEDS: ARIPIPRAZOLE 5 MG TABLET PO SCH (11:43)
[2018-01-13] MEDS: CITALOPRAM HYDROBROMIDE 20 MG TABLET PO SCH (11:44)
[2018-01-13] MEDS: MULTIVITAMIN TABLET PO SCH (11:44)
[2018-01-13] MEDS: MAGNESIUM OXIDE 400 MG TABLET PO SCH (11:45)
[2018-01-13] MEDS: CEPHALEXIN 500 MG CAPSULE PO SCH ×2 (14:07→21:14)
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
--- NOTE | 2018-01-13 17:44 | PDOC DISCHARGE SUMMARY ---
General - Admit/Disc Date/PCP Admission Date/Primary Care Provider: 01/08/18 16:25 NERI MELO DPM Discharge Date: 01/13/18 - Discharge Diagnosis (1) Overdose Is this a current diagnosis for this admission?: Yes (2) Acute kidney injury Is this a current diagnosis for this admission?: Yes (3) Acute encephalopathy Is this a current diagnosis for this admission?: Yes (4) Anemia Is this a current diagnosis for this admission?: Yes (5) Hepatitis C Is this a current diagnosis for this admission?: Yes (6) HTN (hypertension) Is this a current diagnosis for this admission?: Yes - Additional Information Resuscitation Status: Full Code Discharge Activity: Activity As Tolerated Home Medications: Albuterol Sulfate [Ventolin HFA MDI 18 GM] 2 puff IH Q4 12/23/17 Amlodipine Besylate [Norvasc 10 mg Tablet] 10 mg PO DAILY 12/23/17 Aripiprazole [Abilify 10 mg Tablet] 10 mg PO DAILY 12/23/17 Buspirone HCl [Buspar 15 mg Tablet] 7.5 mg PO Q12 12/23/17 Citalopram Hydrobromide [Citalopram HBr] 30 mg PO DAILY 12/23/17 Dextroamphetamine/Amphetamine [Adderall 10 mg Tablet] 10 mg PO Q8 12/23/17 Gabapentin [Neurontin 300 mg Capsule] 300 mg PO Q8 12/23/17 Glycopyrrolate [Robinul Forte] 2 mg PO BIDP PRN 12/23/17 Magnesium Oxide [Mag-Ox 400 mg Tablet] 400 mg PO DAILY 12/23/17 Meloxicam [Mobic] 7.5 mg PO Q12HP PRN 12/23/17 Metformin HCl [Glucophage] 1,000 mg PO BID 12/23/17 Omeprazole 40 mg PO DAILY 12/23/17 Polyethylene Glycol 3350 [Miralax Powder 17 gm/Packet] 17 gm PO DAILY 12/23/17 Quetiapine Fumarate [Seroquel] 300 mg PO QHS 12/23/17 Umeclidinium Brm/Vilanterol Tr [Anoro Ellipta 62.5-25 Mcg INH] 1 puff IH DAILY 12/23/17 Mv-Min/Folic/Vit K/Lycop/Coq10 [Daily Multivitamin Capsule] 1 each PO DAILY #30 capsule 12/29/17 Cephalexin Monohydrate [Keflex 500 mg Capsule] 500 mg PO Q8 #14 capsule Ferrous Sulfate [Feosol 325 mg Tablet] 325 mg PO BIDPCBS tablet 01/13/18 Ipratropium/Albuterol Sulfate [Duoneb 3 ml Ampul] 3 ml NEB RTQ6HP PRN vial.neb 01/13/18 Lisinopril [Prinivil 10 mg Tablet] 20 mg PO DAILY tablet 01/13/18 History of Present Illness History of Present Illness: VENECIA GARNICA is a 57 year old female This 57-year-old female presents to the emergency room with apparent overdose. She was just discharged by me less than 2 weeks ago with the same diagnosis and she presents back today after family found her slumped over earlier today. Patient himself is unable to provide any history although she is awake and alert and able to communicate however her speech is pretty slurred and that she is unable to provide a concise history. Reviewing the chart it appears that she was last seen normal last night. She has a history of alcohol abuse however she told me that she has not been drinking since she left the hospital. The does say that she used Xanax that have been prescribed for her and review of the ED physician notes states that she had 30 days of Xanax filled on January 02 and the bladder is currently empty. It is unclear how many pills of Xanax there were as this was not prescribed by me. She was also prescribed 90 tabs of Percocet on December 19 and the bottle is currently missing. Patient was initially hypotensive in the emergency room when he looks actually did respond to fluid bolus. She was also given some naloxone and it appears her mental status improved. Although her drug screen is positive for benzodiazepines she did not receive any flumazenil. EKG shows a sinus rhythm with nonspecific ST-T wave changes. Aside from the AK I have electrolytes actually pretty unremarkable she is noted to be anemic however hemoglobin is normal at the file from a baseline of about 9.5 and her PCO2 was 43.8 with a pH of 7.3. Also although patient was hypotensive on initial arrival to the emergency room she did respond nicely to IV fluids and has no respiratory compromise at this time plan to admit her to the stepdown unit for close monitoring and observation. Hospital Course Hospital Course: Patient was started on intravenous fluids due to her acute renal failure and a kidney function actually improved and it is currently normal initial creatinine on admission was 4.28 and it is currently 0.7. Magnesium was also replaced. Patient also had rhabdomyolysis on admission with a CPK of about 4000 and this has declined to 243 with resolution of her acute kidney injury. Patient has anemia however this is chronic and stable and she can follow-up with her primary care physician as outpatient. There is no evidence of acute blood loss Patient was also treated for poorly controlled blood pressure and antihypertensives be need further adjustment as outpatient patient was recently discharged with drug overdose complicated with alcohol abuse and on readmission this time it was suspected that she overdosed on Xanax and other unknown prescription drugs. Due to her pattern of repeated overdose and a psychiatric history patient was suspected of a possible suicide intent however she denies any suicidal ideation. Further evaluation by psychiatry suggest that patient needs inpatient psych treatment and so she is been discharged to psychiatric facility. Patient is medically cleared and stable for discharge. Physical Exam Vital Signs: Temp Pulse Resp BP Pulse Ox 98.6 F 59 L 16 152/67 H 94 01/13/18 08:27 01/13/18 08:27 01/13/18 08:27 01/13/18 08:27 01/13/18 08:27 Intake & Output 01/12/18 01/13/18 01/14/18 06:59 06:59 06:59 Intake Total 4267 4028 Output Total 4900 503 Balance -633 3525 Weight 74.5 kg 76.3 kg General appearance: PRESENT: no acute distress, well-nourished Head exam: PRESENT: atraumatic, normocephalic Eye exam: PRESENT: conjunctiva pink, EOMI, PERRLA, other - L eye prosthesis. ABSENT: scleral icterus Ear exam: PRESENT: normal external ear exam Mouth exam: PRESENT: moist, tongue midline Neck exam: ABSENT: carotid bruit, JVD, lymphadenopathy, thyromegaly Respiratory exam: PRESENT: clear to auscultation abiola. ABSENT: rales, rhonchi, wheezes Cardiovascular exam: PRESENT: RRR. ABSENT: diastolic murmur, rubs, systolic murmur Pulses: PRESENT: normal dorsalis pedis pul Vascular exam: PRESENT: normal capillary refill GI/Abdominal exam: PRESENT: normal bowel sounds, soft. ABSENT: distended, guarding, mass, organolmegaly, rebound, tenderness Rectal exam: PRESENT: deferred Extremities exam: PRESENT: full ROM. ABSENT: calf tenderness, clubbing, pedal edema Musculoskeletal exam: PRESENT: other - Tardive dyskinesia and involuntary lower extremity movement Neurological exam: PRESENT: alert, awake, oriented to person, oriented to place , oriented to time, oriented to situation. ABSENT: motor sensory deficit Psychiatric exam: ABSENT: homicidal ideation Skin exam: PRESENT: dry, intact, warm. ABSENT: cyanosis, rash Results Laboratory Results: 01/10/18 06:21 01/10/18 06:21 01/09/18 01/10/18 01/12/18 06:27 06:21 05:27 Creatine Kinase 4367 H 243 H CK-MB (CK-2) 3.73 Impressions: Chest X-Ray 01/08/18 14:30 IMPRESSION: Slight worsening right basilar aeration as above. Suspicious for unresolved/progressive pneumonia. Head CT 01/08/18 14:30 IMPRESSION: No acute or suspicious intracranial abnormality. Stable exam. Pertinent positive or negative findings of the imaging study reported as a CRITICAL EXAM to VERONIKA AGUILERA MD at14:53 on 01/08/2018. Category of Critical Exam: Stroke alert EVIDENCE OF ACUTE STROKE: NO. Qualifiers - * PATIENT BEING DISCHARGED WITH ANY OF THE FOLLOWING DIAGNOSIS: No Plan Discharge Plan: Transfer to Inpatient Psych facility Time Spent: Greater than 30 Minutes
[2018-01-13] MEDS: QUETIAPINE FUMARATE 100 MG TABLET PO SCH (21:14)
[2018-01-14 03:44] VITALS: BP 165/83
[2018-01-14] MEDS: BUSPIRONE HCL 10 MG TABLET PO SCH (05:20)
[2018-01-14] MEDS: GABAPENTIN 300 MG CAPSULE PO SCH (05:21)
[2018-01-14] MEDS: CEPHALEXIN 500 MG CAPSULE PO SCH (05:21)
[2018-01-14] MEDS: TRAMADOL HCL 50 MG TABLET PO PRN (05:21)
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
== END 2018-01-14 08:19 | DRG 917 ==
LOC: ER 14:19 → EH 16:25 → UNDOADMIN 16:25 → 3S 19:04
PROVIDERS: ADMIT Internal Medicine; ATTEND Internal Medicine
PROC: 3E0F73Z Introduction of Anti-inflammatory into Respiratory Tract, Via Natural or Artificial Opening (ICD-10-PCS; principal; 2018-01-09)
DX: T42.4X1A Poisoning by benzodiazepines, accidental (unintentional), initial encounter (principal); G92 Toxic encephalopathy; N17.9 Acute kidney failure, unspecified; M62.82 Rhabdomyolysis; Y92.019 Unspecified place in single-family (private) house as the place of occurrence of the external cause; T50.904A Poisoning by unspecified drugs, medicaments and biological substances, undetermined, initial encounter; Y92.9 Unspecified place or not applicable; D50.9 Iron deficiency anemia, unspecified; B18.2 Chronic viral hepatitis C; I10 Essential (primary) hypertension; E78.00 Pure hypercholesterolemia, unspecified; J44.9 Chronic obstructive pulmonary disease, unspecified; E11.9 Type 2 diabetes mellitus without complications; K21.9 Gastro-esophageal reflux disease without esophagitis; M19.90 Unspecified osteoarthritis, unspecified site; M79.7 Fibromyalgia; F10.20 Alcohol dependence, uncomplicated; Y90.0 Blood alcohol level of less than 20 mg/100 ml; F32.9 Major depressive disorder, single episode, unspecified; F43.10 Post-traumatic stress disorder, unspecified; N83.209 Unspecified ovarian cyst, unspecified side; Z96.652 Presence of left artificial knee joint; Z86.14 Personal history of Methicillin resistant Staphylococcus aureus infection; Z90.49 Acquired absence of other specified parts of digestive tract; Z79.899 Other long term (current) drug therapy; Z82.61 Family history of arthritis; Z80.9 Family history of malignant neoplasm, unspecified; Z82.49 Family history of ischemic heart disease and other diseases of the circulatory system
CPT/HCPCS: 36415; 70450; 71045; 80048; 80053; 80076; 80307; 81001; 82140; 82550; 82553; 82803; 82962; 83605; 83735; 84100; 85025; 85610; 87040; 87086; 93005; 93010; 96361; 96374; 99285; J1335; J1650; J1756; J1815; J2310; J3475; J7030; J7620; S0028

== ENCOUNTER 2018-06-06 10:35 | Emergency (ER) | payer MEDICARE, MEDICAID ==
[2018-06-06] MEDS ORDERED: METHYLPREDNISOLONE INJ 40 MG/1 ML SDV IM ONE (10:46)
[2018-06-06] MEDS ORDERED: LIDOCAINE 1% INJ (10 MG/ML) 10 ML MDV INJ ONE (10:46)
[2018-06-06] MEDS ORDERED: OXYCODONE-ACETAMINOPHEN 5-325 MG TABLET PO ONE (10:52)
--- NOTE | 2018-06-06 11:01 | ER Document Report ---
ED Medical Screen (RME) - General Chief Complaint: Toe Injury Stated Complaint: RIGHT TOE INJURY Time Seen by Provider: 06/06/18 10:40 Notes: Patient is a 58-year-old female that presents to the emergency department for chief complaint of right toe pain after injury. Patient states she accidentally kicked her portable heater yesterday around 5 PM that resulted in a toe injury.. ROS: Other than noted above, the 12 point review of systems was reviewed with the patient and were negative, all pertinent findings are included in the HPI. PHYSICAL EXAMINATION: Vital signs reviewed. GENERAL: Well-appearing, well-nourished and in no acute distress. HEAD: Atraumatic, normocephalic. EYES: Pupils equal round extraocular movements intact, conjunctiva are normal. ENT: Nares patent NECK: Normal range of motion CV: Heart regular rate and rhythm LUNGS: No respiratory distress Musculoskeletal: Right small toe, is grossly deformed and tender to palpate, mild ecchymosis noted as well. NEUROLOGICAL: Normal speech PSYCH: Normal mood, normal affect. MDM: Patient seen and examined for rapid initial assessment. Vital signs reviewed. A comprehensive ED assessment and evaluation of the patient, analysis of test results and completion of the medical decision making process will be conducted by additional ED providers. *Note is created using voice recognition software and may contain spelling, syntax or grammatical errors. TRAVEL OUTSIDE OF THE [place] IN LAST 30 DAYS: No - Related Data Allergies/Adverse Reactions: No Known Allergies Allergy (Verified 06/06/18 10:36) Past Medical History - Social History Chew tobacco use (# tins/day): No Frequency of alcohol use: None Drug Abuse: None - Past Medical History Cardiac Medical History: Reports: Hx Hypercholesterolemia, Hx Hypertension - meds x 15 years Pulmonary Medical History: Reports: Hx COPD Neurological Medical History: Denies: Hx Cerebrovascular Accident Endocrine Medical History: Reports: Hx Diabetes Mellitus Type 2 Renal/ Medical History: Reports: Hx Ovarian Cysts - denies surgery. Denies: Hx End Stage Renal Disease, Hx Peritoneal Dialysis GI Medical History: Reports: Hx Diverticulitis - Status post partial colectomy with reversal of colostomy, Hx Gastroesophageal Reflux Disease - meds x 8 years , Hx Hepatitis - Hepatitis C which she states has been totally treated and she does not have, Hx Liver Failure - Hep C, Dx'ed 2010, Hx Ulcer - gastic Musculoskeltal Medical History: Reports Hx Arthritis, Reports Hx Fibromyalgia, Reports Hx Musculoskeletal Deformity, Reports Hx Musculoskeletal Trauma Skin Medical History: Reports Hx MRSA Psychiatric Medical History: Reports: Hx Anxiety, Hx Depression - meds x 8 years , Hx Post Traumatic Stress Disorder - refused to explain Hx, "too painful" Traumatic Medical History: Reports: Hx Fractures - RT foot, ORIF, 2014, [place] Infectious Medical History: Reports: Hx Hepatitis - Hepatitis C which she states has been totally treated and she does not have Past Surgical History: Reports: Hx Abdominal Surgery - Partial colectomy for bowel obstruction, Hx Bowel Surgery - exp lap, colon resection 2011, MRSA, Hx Colostomy - Which is since been reversed, Hx Herniorrhaphy - ? ventral, Hx Orthopedic Surgery - Left TKR, Hx Umbilical Hernia - Immunizations Immunizations up to date: No Hx Diphtheria, Pertussis, Tetanus Vaccination: Yes History of Influenza Vaccine for 04/2017 - 09/2017 Season: Yes Influenza Administration Date for 04/2017 - 09/2017 Season: 05/18/17 Physical Exam - Vital signs Vitals: Temp Pulse Resp BP Pulse Ox 98.6 F 108 H 20 147/104 H 97 06/06/18 10:40 06/06/18 10:40 06/06/18 10:40 06/06/18 10:40 06/06/18 10:40 Course - Vital Signs Vital signs: Temp Pulse Resp BP Pulse Ox 98.6 F 108 H 20 147/104 H 97 06/06/18 10:40 06/06/18 10:40 06/06/18 10:40 06/06/18 10:40 06/06/18 10:40 Doctor's Discharge - Discharge Referrals: NERI MELO DPM [Primary Care Provider] - Follow up as needed
[2018-06-06] MEDS ORDERED: LIDOCAINE 1% INJ-PF (10 MG/ML) 30 ML SDV INJ ONE (11:32)
--- NOTE | 2018-06-06 11:36 | ER Document Report ---
ED General - General Chief Complaint: Toe Injury Stated Complaint: RIGHT TOE INJURY Time Seen by Provider: 06/06/18 10:40 TRAVEL OUTSIDE OF THE [place] IN LAST 30 DAYS: No - HPI Notes: Patient is a 58-year-old female with a history of type 2 diabetes, hypertension who presents to the ED complaining of right fifth toe pain status post injury yesterday afternoon around 5 PM. Patient states that she kicked a space heater at that time. Patient states that she has had pain, swelling, bruising to the area since. Patient states that she is still able to ambulate, but is limping. No other concerns or complaints. Denies drug allergies. Denies any headache , fever, URI, sore throat, chest pain, palpitations, syncope, cough, shortness of breath, wheeze, dyspnea, abdominal pain, nausea/vomiting/diarrhea, urinary retention, dysuria, hematuria, numbness/tingling, muscle paralysis, or rash. - Related Data Allergies/Adverse Reactions: No Known Allergies Allergy (Verified 06/06/18 10:36) Past Medical History - Social History Smoking Status: Current Every Day Smoker Chew tobacco use (# tins/day): No Frequency of alcohol use: None Drug Abuse: None Family History: Reviewed & Not Pertinent, Arthritis, CAD, Hyperlipidemia, Hypertension, Malignancy, Thyroid Disfunction Patient has suicidal ideation: No Patient has homicidal ideation: No - Past Medical History Cardiac Medical History: Reports: Hx Hypercholesterolemia, Hx Hypertension - meds x 15 years Pulmonary Medical History: Reports: Hx COPD Neurological Medical History: Denies: Hx Cerebrovascular Accident Endocrine Medical History: Reports: Hx Diabetes Mellitus Type 2 Renal/ Medical History: Reports: Hx Ovarian Cysts - denies surgery. Denies: Hx End Stage Renal Disease, Hx Peritoneal Dialysis GI Medical History: Reports: Hx Diverticulitis - Status post partial colectomy with reversal of colostomy, Hx Gastroesophageal Reflux Disease - meds x 8 years , Hx Hepatitis - Hepatitis C which she states has been totally treated and she does not have, Hx Liver Failure - Hep C, Dx'ed 2010, Hx Ulcer - gastic Musculoskeletal Medical History: Reports Hx Arthritis, Reports Hx Fibromyalgia, Reports Hx Musculoskeletal Deformity, Reports Hx Musculoskeletal Trauma Skin Medical History: Reports Hx MRSA Psychiatric Medical History: Reports: Hx Anxiety, Hx Depression - meds x 8 years , Hx Post Traumatic Stress Disorder - refused to explain Hx, "too painful" Traumatic Medical History: Reports: Hx Fractures - RT foot, ORIF, 2013, [place] Infectious Medical History: Reports: Hx Hepatitis - Hepatitis C which she states has been totally treated and she does not have Past Surgical History: Reports: Hx Abdominal Surgery - Partial colectomy for bowel obstruction, Hx Bowel Surgery - exp lap, colon resection 2011, MRSA, Hx Colostomy - Which is since been reversed, Hx Herniorrhaphy - ? ventral, Hx Orthopedic Surgery - Left TKR, Hx Umbilical Hernia - Immunizations Immunizations up to date: No Hx Diphtheria, Pertussis, Tetanus Vaccination: Yes Review of Systems - Review of Systems -: Yes All other systems reviewed and negative Physical Exam - Vital signs Vitals: Temp Pulse Resp BP Pulse Ox 98.6 F 108 H 20 147/104 H 97 06/06/18 10:40 06/06/18 10:40 06/06/18 10:40 06/06/18 10:40 06/06/18 10:40 - Notes Notes: PHYSICAL EXAMINATION: GENERAL: Well-appearing, well-nourished and in no acute distress. LUNGS: Breath sounds clear to auscultation bilaterally and equal. No wheezes rales or rhonchi. HEART: Regular rate and rhythm without murmurs, rubs, gallops. Musculoskeletal: Lt foot: + swelling, deformity, and ecchymosis to the rt 5th digit. LROM to passive/active. N/V intact distal. + tenderness associated. No other bony tenderness to the foot/ankle. Achilles intact. Extremities: No cyanosis, clubbing, or edema b/l. Peripheral pulses 2+. Capillary refill less than 3 seconds. NEUROLOGICAL: Normal speech, limping gait. Normal sensory, motor exams PSYCH: Normal mood, normal affect. SKIN: Warm, Dry, normal turgor, no rashes or lesions noted. Course - Re-evaluation Re-evalutation: 06/06/18 11:35 I did speak with Ortho, Dr. Lacy, who recommended reduction, ruth tape, and post-op shoe with weight-bearing as tolerated. Pt in agreement with plan. 06/06/18 12:41 Patient is an afebrile, well-hydrated, 58-year-old female who presents to the ED with a transverse fracture of the fifth proximal phalange he with lateral displacement of the toe. Vitals are acceptable. PE is otherwise unremarkable. Digital block was performed successfully without any complications and reduction attempt was performed unsuccessfully. Radiology was present during attempt x3 with no reduction. Dr. Appiah was consulted who eval'd and stated to just splint and notify ortho again. I did speak with Dr. Lacy who would like her to come to his office this afternoon. Ruth tape, post-op shoe placed. Pt to f/u with Ortho today. Return to the ED with any other worsening/concerning symptoms otherwise as reviewed discharge. Patient is in agreement. - Vital Signs Vital signs: Temp Pulse Resp BP Pulse Ox 98.6 F 108 H 20 147/104 H 97 06/06/18 10:40 06/06/18 10:40 06/06/18 10:40 06/06/18 10:40 06/06/18 10:40 Procedures - Joint Reduction/Fracture Care Right Toe 5th digit Time completed: 12:35 Consent obtained: Yes Conscious sedation: No - digital block with 1% lido, no epi. Pre-procedure NV exam: Yes - normal Fracture: Closed Post-procedure NV exam: Yes - normal Post-reduction x-ray: Joint not reduced Reduction attempts: 3 Complications: No Discharge - Discharge Clinical Impression: Toe fracture, right Qualifiers: Encounter type: initial encounter Toe: lesser toe Fracture type: closed Phalanx : proximal Fracture alignment: displaced Qualified Code(s): S92.511A - Displaced fracture of proximal phalanx of right lesser toe(s), initial encounter for closed fracture Condition: Stable Disposition: HOME, SELF-CARE Additional Instructions: Rest, Ice, Compression, Elevation Use splint as directed Tylenol/ibuprofen as needed F/u: with your PCM as needed otherwise or in 3-5 days. See Orthopedics when you leave the ED (Dr. Lacy)* Return to the ED with any worsening symptoms and/or development of fever, headache, chest pain, palpitations, syncope, shortness of breath, trouble breathing, abdominal pain, n/v/d, muscle weakness/paralysis, numbness/tingling, swelling, redness, or other worsening symptoms that are concerning to you. Forms: Elevated Blood Pressure, Smoking Cessation Education Referrals: DARVIN LACY MD [ACTIVE STAFF] - 06/06/18
--- NOTE | 2018-06-06 11:37 | RADIOLOGY REPORT (SQ) ---
EXAM DESCRIPTION: FOOT RIGHT COMPLETE COMPLETED DATE/TIME: 06/06/2018 11:18 am REASON FOR STUDY: small toe injury, deformity stubbed right 4th and 5th toes with pain COMPARISON: None. NUMBER OF VIEWS: Three views. TECHNIQUE: AP, lateral and oblique radiographic images acquired of the right foot. LIMITATIONS: None. FINDINGS: MINERALIZATION: Normal. BONES: Acute transverse fracture right 5th toe proximal phalanx near the PIP joint. There is lateral dislocation of the phalanx fragment and remainder of the toe. No definite acute 4th toe fracture. JOINTS: No effusions. SOFT TISSUES: 5th toe soft tissue swelling. No foreign body. OTHER: No other significant finding. IMPRESSION: Acute trans fracture right 5th toe proximal phalanx near the PIP joint. Lateral disloca tion of the proximal phalanx fragment and remainder of the 5th toe TECHNICAL DOCUMENTATION: JOB ID: [id number] [employer]- All Rights Reserved Reading location - IP/workstation name: [email or web address]
[2018-06-06 12:56] VITALS: BP 138/95
--- NOTE | 2018-06-06 13:20 | RADIOLOGY REPORT (SQ) ---
EXAM DESCRIPTION: FOOT RIGHT 2 VIEWS COMPLETED DATE/TIME: 06/06/2018 12:53 pm REASON FOR STUDY: POST REDUCTION COMPARISON: Same day radiographs of the right foot NUMBER OF VIEWS: Three views. TECHNIQUE: AP and oblique radiographic images acquired of the right foot. LIMITATIONS: None. FINDINGS: MINERALIZATION: Normal. BONES: A transverse fracture through the distal aspect of the proximal phalanx right digit remains la terally displaced, unchanged alignment compared to prior examination. Unchanged flatfoot correction osteotomies of the navicular and calcaneus. JOINTS: No effusions. SOFT TISSUES: Soft tissue swelling about the right 5th digit. OTHER: No other significant finding. IMPRESSION: A transverse fracture through the distal aspect of the proximal phalanx right digit latoya ins laterally displaced, unchanged in alignment compared to prior examination. TECHNICAL DOCUMENTATION: JOB ID: [id number] [employer]- All Rights Reserved Reading location - IP/workstation name: [email or web address]
== END 2018-06-06 12:56 | disposition home or self-care (01) ==
LOC: ER 10:35
DX: S99.921A Unspecified injury of right foot, initial encounter (principal); W22.09XA Striking against other stationary object, initial encounter; E11.9 Type 2 diabetes mellitus without complications; I10 Essential (primary) hypertension; F17.200 Nicotine dependence, unspecified, uncomplicated; E78.00 Pure hypercholesterolemia, unspecified; J44.9 Chronic obstructive pulmonary disease, unspecified; Z86.14 Personal history of Methicillin resistant Staphylococcus aureus infection; Z86.19 Personal history of other infectious and parasitic diseases
CPT/HCPCS: 99283; 73630; 73620; 28515; J3490; A9270